=== PATIENT | female | born 1950 | race Caucasian/White ===

== ENCOUNTER → 2022-10-27 | Outpatient (CLI) | payer BC, SELFPAY ==
--- NOTE | 2022-10-27 09:41 | CT_ITS ---
EXAM: CT NECK WITH INTRAVENOUS CONTRAST CLINICAL INDICATION: L NECK MASS TECHNIQUE: Helically acquired images were obtained of the neck with intravenous contrast. This CT exam was performed using one or more of the following dose reduction techniques: automated exposure control, adjustment of the mA and/or kV according to patient size, and/or use of iterative reconstruction technique. CONTRAST: IV 75mL Isovue-370 RADIATION DOSE: CTDIvol = 19.11 mGy, DLP = 620.85 mGy-cm COMPARISON: No relevant prior studies available. FINDINGS: NASOPHARYNX: Unremarkable. SUPRAHYOID NECK: Unremarkable. Oropharynx, oral cavity, parapharyngeal space and retropharyngeal space are unremarkable. INFRAHYOID NECK: Unremarkable. The larynx, hypopharynx and supraglottis are unremarkable. SUBMANDIBULAR/PAROTID GLANDS: Unremarkable. Glands are normal in size. THYROID: Unremarkable. No enlarged or calcified nodules. SINUSES: Well-aerated almost completely included paranasal sinuses, middle ears and mastoids sinuses. Unremarkable orbits. BONES/JOINTS: Moderate degenerative change at C5-C7 with disc space narrowing and prominent predominantly anterior osteophytes. Straightening of the usual lordotic curvature. Mild spinal canal narrowing and moderate left C3-4, moderate-marked right C4-5, moderate right C5-6 and mild bilateral C6-7 neural foraminal stenosis. No acute fracture. SOFT TISSUES: Unremarkable. VASCULATURE: There are bilateral atherosclerotic calcifications of cervical carotids with estimated at least 70% stenosis of proximal right ICA, difficult to quantify due to the complex calcifications, no poststenotic dilatation. Patent vertebral arteries, both contribute to the basilar artery confluence. Mild left carotid calcification without significant narrowing. LYMPH NODES: Unremarkable. No lymphadenopathy. LUNG APICES: Unremarkable as visualized. MEDIASTINUM: Small cervical lymph nodes, no suspicious mass. Most of the mediastinum is included, small mediastinal lymph nodes, not suspicious by size criteria. CT/Soft Tissue Neck WITH Contrast IMPRESSION: 1. No suspicious mass identified. No significant salivary gland asymmetry or suspicious adenopathy. 2. Estimated at least 70% stenosis of proximal right ICA. Ultrasound could be considered to evaluate likelihood of hemodynamic significance. 3. Degenerative spine changes. Electronically Signed: Shelbi Ojeda MD at 6:07 EDT ,
[2022-10-27 10:17] LABS: CREATININE FINGERSTICK 0.9 mg/dL (0.55-1.02); EGFR FINGERSTICK > 60.0000 mL/min (>60)
== END | disposition home or self-care (01) ==
LOC: CT 09:40
PROVIDERS: Referring Provider Otolaryngology; Visit Provider Otolaryngology
DX: R22.1 Localized swelling, mass and lump, neck (principal)
CPT/HCPCS: 70491; Q9967

== ENCOUNTER → 2024-11-01 | Outpatient (CLI) | payer MEDICARE, SELFPAY ==
[2024-11-01 12:42] VITALS: PULSE 72; PULSE 84; PULSE 89; PULSE 90; PULSE 91; O2SAT 96; O2SAT 97
--- NOTE | 2024-11-02 11:38 | PCM.PSN.6M ---
PSN 6 Minute Walk Test 6 Minute Walk Test 6 Minute Walk Test: 6 Minute Walk Test PSN:6-Minute Walk Test Start: 11/01/24 12:53 Freq: Status: Active Protocol: [id number].[id number] Document 11/01/24 12:42 [facility] (Rec: 11/01/24 12:58 [facility] [id number]) 6 Minute Walk Test Date Performed 11/01/24 Time Performed 12:42 Height 5 ft 10 in Weight: 220 lb Weight in Pounds [address]: Andreas Sahu Assistive device None used: Pre-test Oxygen Delivery Room Air Method Pulse Ox (%) 97 Pulse Rate (60-100 72 beats/min) Dyspnea Laith Scale ( 0 0-10) Exertion Laith Scale 6 (6-20) 1st minute Oxygen Delivery Room Air Method Pulse Ox (%) 96 Pulse Rate (60-100 84 beats/min) 2nd minute Oxygen Delivery Room Air Method Pulse Ox (%) 96 Pulse Rate (60-100 89 beats/min) 3rd minute Oxygen Delivery Room Air Method Pulse Ox (%) 96 Pulse Rate (60-100 89 beats/min) 4th minute Oxygen Delivery Room Air Method Pulse Ox (%) 96 Pulse Rate (60-100 91 beats/min) 5th minute Oxygen Delivery Room Air Method Pulse Ox (%) 97 Pulse Rate (60-100 90 beats/min) 6th minute Oxygen Delivery Room Air Method Pulse Ox (%) 96 Pulse Rate (60-100 84 beats/min) Dyspnea Laith Scale ( 1 0-10) Exertion Laith Scale 7 (6-20) Post-test Oxygen Delivery Room Air Method Pulse Ox (%) 97 Pulse Rate (60-100 72 beats/min) Full Laps Walked 12 Partial Lap, Number 0 of Tiles Walked Total Distance 708 Walked (ft) Interpretation Interpretation: The patient ambulated 780 feet over the course of 6 minutes beginning on room air without assistive devices. Pretesting oxygen saturation was noted to be 97% on room air. With ambulation, the malcolm oxygen saturation was 96%. There was no significant exertional oxygen desaturation. Recommendations Recommendations: There is no indication for the use of supplemental oxygen at this time.
== END | disposition home or self-care (01) ==
PROVIDERS: Referring Provider Internal Medicine Critical Care Medicine; Visit Provider Internal Medicine Critical Care Medicine
DX: J98.4 Other disorders of lung (principal)
CPT/HCPCS: 94618

== ENCOUNTER → 2024-11-06 | Outpatient (CLI) | payer MEDICARE, SELFPAY | END | disposition home or self-care (01) | LOC: PSN 09:36 | PROVIDERS: Referring Provider Internal Medicine Critical Care Medicine; Visit Provider Internal Medicine Critical Care Medicine | DX: J98.4 Other disorders of lung (principal) | CPT/HCPCS: 94060; 94726; 94729 ==

== ENCOUNTER → 2024-12-18 | Outpatient (CLI) | payer MEDICARE, SELFPAY | END | disposition home or self-care (01) | LOC: SL 11:19 | PROVIDERS: Referring Provider Nurse Practitioner Family; Visit Provider Nurse Practitioner Family | DX: R06.02 Shortness of breath (principal) | CPT/HCPCS: 94762 ==

== ENCOUNTER → 2025-01-25 | Outpatient (CLI) | payer MEDICARE, SELFPAY ==
--- OUTSIDE RECORDS SUMMARY | 2025-01-25 19:51 | XMS RPT_ITS | CCD ---
Author Organization [facility] Care Team Providers Care Industrial Psychologist Name Role Phone VERONA MANZANARES, DR OLIVAREZ Primary Care Physician [phone] Unavailable Primary Care Provider HAYLIE Acevedo Attending Unavailable VERONA DO, DR OLIVAREZ Primary Care Physician VERONA DO, DR OLIVAREZ Attending Unavailable VERONA DO, DR OLIVAREZ Primary Care Unavailable VERONA DO, DR OLIVAREZ Attending Unavailable VERONA DO, DR OLIVAREZ Primary Care Unavailable VERONA DO, DR OLIVAREZ Attending Unavailable VERONA DO, DR OLIVAREZ Primary Care Unavailable VERONA DO, DR OLIVAREZ Attending Unavailable VERONA DO, DR OLIVAREZ Primary Care Unavailable VERONA DO, DR OLIVAREZ Attending Unavailable VERONA DO, DR OLIVAREZ Primary Care Unavailable JORDEN ORONA-WILI, SOPHIA Attending Unavailab le VERONA DO, DR OLIVAREZ Primary Care Unavailable BRYCE GOMEZ, RAMY Consulting Unavailable VERONA DO, DR OLIVAREZ Primary Care Unavailable RIZWAN GOMEZ, DR ZABRINA Daily Attending Lalito Tom DO, Dr. Sher Briggs Primary Care Provider Verona MANZANARES, Dr. Sher Briggs Referring Provider [phone] Luis Alberto MANZANARES, Dr. Johns Attending Provider [phone] Dr. Andreas Sahu DO Referring Provider Dr. Andreas Sahu DO Other Provider [phone] Cherelle Mendoza Attending Provider Cherelle Mendoza Referring Provider Shara GOMEZ, Hernandez Valdez Unavailable Karen Salazar Unavailable Verona DO, Sher Amaya Unavailable [phone] Verona, Sher Briggs Primary Care Unavailable Brown, Andreas Referring Unavailable Brown, Andreas Attending Unavailable Verona, Sher Briggs Primary Care Unavailable Brown, Andreas Referring Unavailable Brown, Andreas Attending Unavailable Verona, Sher Briggs Primary Care Unavailable Verona, Sher Briggs Referring Unavailable Brown, Andreas Attending Unavailable Verona, Sher Briggs Referring Unavailable Verona, Sher Briggs Primary Care Unavailable Rufener, Cherelle Amaya Attending Unavailable Verona, Sher Briggs Referring Unavailable Verona, Sher Briggs Primary Care Unavailable Rufencheo, Cherelle Amaya Attending Unavailable Brown, Andreas Consulting Unavailable Brown, Andreas Attending Unavailable Brown, Andreas Referring Unavailable Verona, Sher Briggs Primary Care Unavailable Verona, Sher Briggs Primary Care Unavailable Rufencheo, Cherelle Amaya Attending Unavailable [place]ufen[place], Cherelle mAaya Referring Unavailable Verona, Sher Briggs Primary Care Unavailable Rufener, Cherelle Amaya Attending Unavailable Rufencheo, Cherelle Amaya Referring Unavailable VERONA, SHER Primary Care Unavailable VERONA, SHER Attending Unavailable VERONA, SHER Attending Unavailable VERONA, SHER Primary Care Unavailable VERONA, SHER Attending Unavailable VERONA, SHER Primary Care Unavailable RUFENER, C++ PROFESSOR WILI PEPE Attending U navailable VERONA, SHER Primary Care Unavailable VERONA, SHER Primary Care Unavailable VERONA, SHER Attending Unavailable Medications Current Medications Medication Drug Class(es) Dates Sig (Normalized) Sig (Original) amLODIPine 5 mg oral tablet (20 sources) Dihydropyridine Calcium Channel Shruti Start: 01-17-2025 amLODIPine 5 mg oral tablet Dose : 5 mg = 1 tab(s), Oral, qDay, # 90 tab(s), 1 Refill(s), [facility] 175, cm, 01/17/25 8:40:00 EDT, Height, kg, 01/17/25 8:40:00 EDT, Dosing Weight Start Date: 01/17/25 Status: Ordered Medication Dispense Status: Completed Quantity: 90.0 Unit: tab(s) Total Allowed Fills: 2 Fills Dispensed: 0 Start: 08-09-2024 amLODIPine 5 m g oral tablet Dose : 5 mg = 1 tab(s), Oral, qDay, # 90 tab(s), 1 Refill(s), Pharmacy: [facility] 177.8, cm, 08/09/24 8:54:00 EDT, Height, kg, 08/09/24 8:54:00 EDT, Dosing Weight Start Date: 08/09/24 Status: Ordered Medication Dispense Status: Completed Quantity: 90.0 Unit: tab(s) Total Allowed Fills: 2 Fills Dispensed: 0 Start: 01-12-2024 amLODIPine 5 m g oral tablet Dose : 5 mg = 1 tab(s), Oral, qDay, # 90 tab(s), 1 Refill(s), Pharmacy: [facility] 175, cm, 01/12/24 9:56:00 EDT, Height, kg, 01/12/24 9:56:00 EDT, Dosing Weight Start Date: 01/12/24 Status: Ordered Start: 10-25-2023 amLODIPine 5 m g oral tablet Dose : 5 mg = 1 tab(s), Oral, qDay, # 90 tab(s), 1 Refill(s), Pharmacy: [facility] 175, cm, 08/09/23 8:54:00 EDT, Height, kg, 08/09/23 8:54:00 EDT, Dosing Weight Start Date: 10/25/23 Status: Ordered Start: 04-30-2021 amLODIPine 5 m g oral tablet Dose : 5 mg = 1 tab(s), Oral, qDay, # 90 tab(s), 1 Refill(s), Pharmacy: [facility] 175, cm, 02/01/23 8:59:00 EDT, Height, kg, 02/01/23 8:59:00 EDT, Dosing Weight Start Date: 06/03/23 Status: Ordered amoxicillin 875 mg / clavulanate 125 mg oral tablet (2 sources) Penicillin-class Antibacterial Start: 01-19-2022 End: 01-29-2022 take 1 tablet by mouth twice daily amoxicillin-clavulanic acid (AUGMENTIN) 875-125 mg per tablet Take 1 tablet by mouth twice daily for 10 days. 20 tablet 0 01/19/2022 01/29/2022 Active Comment on above: Take 1 tablet by skyler th twice daily for 10 days. Antiarthritic Combination No.2 (Glucosamine-Harris droitin) 900 mg tablet (6 sources) Start: 10-23-2024 Antiarthritic Combination No.2 (Glucosamine-Chondroitin) 900 mg tablet Active mg PO October 23, 2024 12:00am apixaban 5 mg oral tablet (16 sources) Factor Xa Inhibitor Start: 01-17-2025 Eliquis 5 mg oral tablet Dose : 5 mg = 1 tab(s), Oral, BID, # 180 tab(s), 1 Refill(s), Pharmacy: [facility] 175, cm, 01/17/25 8:40:00 EDT, Height, 102.3, kg, 01/17/25 8:40:00 EDT, Dosing Weight Start Date: 01/17/25 Status: Ordered Medication Dispense Status: Completed Quantity: 180.0 Unit: tab(s) Total Allowed Fills: 2 Fills Dispensed: 0 Start: 12-16-2023 Eliquis 5 mg o ral tablet Dose : 5 mg = 1 tab(s), Oral, BID, # 180 tab(s), 1 Refill(s), Pharmacy: [facility], [facility] 177.8, cm, 08/09/24 8:54:00 EDT, Height, 101.8, kg, 08/09/24 8:54:00 EDT, Dosing Weight Start Date: 08/09/24 Status: Ordered Medication Dispense Status: Completed Quantity: 180.0 Unit: tab(s) Total Allowed Fills: 2 Fills Dispensed: 0 calcium carbonate 1500 mg oral tablet (20 sources) Start: 10-23-2024 take 1 tablet by mouth twice daily Calcium Carbonate 600 mg calcium (1,500 mg) tablet Active 600 mg PO TWICE A DAY October 23, 2024 12:00am Start: 01-06-2018 calcium (as ca rbonate) 600 mg oral tablet Dose : 600 mg = 1 tab(s), Oral, BIDM, 0 Refill(s) Start Date: 01/06/18 Status: Ordered Medication Dispense Status: Completed Total Allowed Fills: 1 Fills Dispensed: 0 Chondroitin Sulfates / Glucosamine (13 sources) Start: 08-03-2022 take 1 dose by mouth once daily Glucosamine Chondroitin Oral, qDay, 0 Refill(s) Start Date: 08/03/22 Status: Ordered Medication Dispense Status: Completed Total Allowed Fills: 1 Fills Dispensed: 0 Start: 08-03-2022 Glucosamine Ch ondroitin Oral, qDay, 0 Refill(s) Start Date: 08/03/22 Status: Ordered Repeat number: 1 Start: 08-03-2022 Glucosamine Ch ondroitin Oral, qDay, 0 Refill(s) Start Date: 08/03/22 Status: Ordered Clobetasol (10 sources) Corticosteroid Start: 06-07-2023 clobetasol 0.0 5% topical cream Apply 1 guillermo, Topical, BID, # 15 gram(s), 1 Refill(s), [id number] Cream, 175, cm, 02/01/23 8:59:00 EDT, Height, 102, kg, 06/07/23 13:01:00 EST, Dosing Weight Start Date: 06/07/23 Status: Ordered Start: 08-04-2021 clobetasol 0.0 5% topical ointment Apply 1 guillermo, Topical, BID, # 15 gram(s), 0 Refill(s), [id number] Ointment, 175, cm, 08/04/21 8:59:00 EDT, Height, 99.2 Start Date: 08/04/21 Status: Ordered fexofenadine hydrochloride 180 mg oral tablet (14 sources) Histamine-1 Receptor Antagonist Start: 08-09-2024 Kandi 24 Hour Allergy oral tablet Dose : 180 mg = 1 tab(s), Oral, Daily, # 30 tab(s), 0 Refill(s), [facility] 177.8, cm, 08/09/24 8:54:00 EDT, Height, kg, 08/09/24 8:54:00 EDT, Dosing Weight Start Date: 08/09/24 Status: Ordered Medication Dispense Status: Completed Quantity: 30.0 Unit: tab(s) Total Allowed Fills: 1 Fills Dispensed: 0 Start: 12-16-2023 Kandi 24 Ramiro r Allergy oral tablet Dose : 180 mg = 1 tab(s), Oral, Daily, # 30 tab(s), 0 Refill(s), Pharmacy: [facility] #[id number], 175, cm, 12/16/23 14:02:00 EDT, Height, kg, 12/16/23 14:02:00 EDT, Dosing Weight Start Date: 12/16/23 Status: Ordered fluticasone propionate 0.05 mg/actuat metered dose nasal spray (14 sources) Corticosteroid Start: 10-23-2024 Fluticasone Pr opionate 50 mcg/actuation spray,suspension Active NMA INTRANASAL October 23, 2024 12:00am Start: 08-09-2024 take 100 ug nasal ro donna once daily in the morning Flonase 50 mcg/inh nasal spray 100 mcg Dose = 2 spray(s), Nostril, each, qAM, # 1 EA, 0 Refill(s), Pharmacy: [facility], [facility] 177.8, cm, 08/09/24 8:54:00 EDT, Height, kg, 08/09/24 8:54:00 EDT, Dosing Weight Start Date: 08/09/24 Status: Ordered Medication Dispense Status: Completed Quantity: 1.0 Unit: EA Total Allowed Fills: 1 Fills Dispensed: 0 Start: 12-16-2023 take 100 ug nasal ro donna once daily in the morning Flonase 50 mcg/inh nasal spray 100 mcg Dose = 2 spray(s), Nostril, each, qAM, # 1 EA, 0 Refill(s), Pharmacy: [facility] #[id number], 175, cm, 12/16/23 14:02:00 EDT, Height, kg, 12/16/23 14:02:00 EDT, Dosing Weight Start Date: 12/16/23 Status: Ordered hydroCHLOROthiazide 25 mg / losartan potassium 100 mg oral tablet (20 sources) Thiazide Diuretic, Angiotensin 2 Receptor Shruti Start: 01-17-2025 take 1 tablet by mouth once daily hydrochlorothiazide-losartan 25-100 mg oral tablet See Instructions, TAKE 1 TABLET EVERY DAY, # 100 tab(s), 1 Refill(s), [facility] 175, cm, 01/17/25 8:40:00 EDT, Height, kg, 01/17/25 8:40:00 EDT, Dosing Weight Start Date: 01/17/25 Status: Ordered Medication Dispense Status: Completed Quantity: 100.0 Unit: tab(s) Total Allowed Fills: 2 Fills Dispensed: 0 Start: 08-09-2024 take 1 tablet by skyler once daily hydrochlorothiazide-losartan 25-100 mg o ral tablet See Instructions, TAKE 1 TABLET EVERY DAY, # 100 tab(s), 1 Refill(s), [facility], cm, 08/09/24 8:54:00 EDT, Height, kg, 08/09/24 8:54:00 EDT, Dosing Weight Start Date: 08/09/24 Status: Ordered Medication Dispense Status: Completed Quantity: 100.0 Unit: tab(s) Total Allowed Fills: 2 Fills Dispensed: 0 Start: 01-12-2024 take 1 tablet by skyler once daily hydrochlorothiazide-losartan 25-100 mg o ral tablet See Instructions, TAKE 1 TABLET EVERY DAY, # 100 tab(s), 1 Refill(s), [facility] 175, cm, 01/12/24 9:56:00 EDT, Height, kg, 01/12/24 9:56:00 EDT, Dosing Weight Start Date: 01/12/24 Status: Ordered Start: 12-10-2021 losartan-hydro CHLOROthiazide (HYZAAR) 100-25 mg per tablet Start: 01-09-2021 take 1 tablet by skyler once daily hydrochlorothiazide-losartan 25-100 mg o ral tablet See Instructions, TAKE 1 TABLET EVERY DAY, # 100 tab(s), 1 Refill(s), [facility] 175, cm, 08/09/23 8:54:00 EDT, Height, kg, 08/09/23 8:54:00 EDT, Dosing Weight Start Date: 09/01/23 Status: Ordered ammonium lactate 120 mg/ml topical lotion (14 sources) Start: 10-23-2024 Ammonium Lacta te 12 % lotion Active TOPICAL TWICE A DAY October 23, 2024 12:00am Start: 12-19-2023 ammonium lacta te 12% topical cream Apply 1 guillermo, Topical, BID, 0 Refill(s), 104 Start Date: 12/19/23 Status: Ordered Medication Dispense Status: Completed Total Allowed Fills: 1 Fills Dispensed: 0 mupirocin 0.02 mg/mg topical ointment (5 sources) RNA Synthetase Inhibitor Antibacterial Start: 06-07-2023 mupirocin 2% topical ointment Apply 1 guillermo, Topical, TID, # 15 gram(s), 0 Refill(s), [id number] Ointment, 175, cm, 02/01/23 8:59:00 EDT, Height, 102, kg, 06/07/23 13:01:00 EST, Dosing Weight Start Date: 06/07/23 Status: Ordered 24 hr propranolol hydrochloride 60 mg extended release oral capsule (20 sources) beta-Adrenergic Shruti Start: 01-17-2025 propranolol 60 mg oral capsule, extended release Dose : 60 mg = 1 cap(s), Oral, BID, # 180 cap(s), 1 Refill(s), Pharmacy: [facility], 175, cm, 01/17/25 8:40:00 EDT, Height, kg, 01/17/25 8:40:00 EDT, Dosing Weight Start Date: 01/17/25 Status: Ordered Medication Dispense Status: Completed Quantity: 180.0 Unit: cap(s) Total Allowed Fills: 2 Fills Dispensed: 0 Start: 08-09-2024 propranolol 60 mg oral capsule, extended release Dose : 60 mg = 1 cap(s), Oral, BID, # 180 cap(s), 1 Refill(s), Pharmacy: [facility] 177.8, cm, 08/09/24 8:54:00 EDT, Height, kg, 08/09/24 8:54:00 EDT, Dosing Weight Start Date: 08/09/24 Status: Ordered Medication Dispense Status: Completed Quantity: 180.0 Unit: cap(s) Total Allowed Fills: 2 Fills Dispensed: 0 Start: 01-12-2024 propranolol 60 mg oral capsule, extended release Dose : 60 mg = 1 cap(s), Oral, BID, # 180 cap(s), 1 Refill(s), Pharmacy: [facility] 175, cm, 01/12/24 9:56:00 EDT, Height, kg, 01/12/24 9:56:00 EDT, Dosing Weight Start Date: 01/12/24 Status: Ordered Start: 08-09-2023 propranolol 60 mg oral capsule, extended release Dose : 60 mg = 1 cap(s), Oral, BID, # 180 cap(s), 1 Refill(s), Pharmacy: [facility], 175, cm, 08/09/23 8:54:00 EDT, Height, kg, 08/09/23 8:54:00 EDT, Dosing Weight Start Date: 08/09/23 Status: Ordered Start: 02-01-2023 propranolol 60 mg oral capsule, extended release Dose : 60 mg = 1 cap(s), Oral, BID, # 180 cap(s), 1 Refill(s), [facility]: [facility], 175, cm, 02/01/23 8:59:00 EDT, Height, kg, 02/01/23 8:59:00 EDT, Dosing Weight Start Date: 02/01/23 Status: Ordered Start: 10-28-2022 propranolol 60 mg oral capsule, extended release Dose : 60 mg = 1 cap(s), Oral, BID, # 180 cap(s), 1 Refill(s), [facility]: [facility], 175, cm, 02/02/22 9:07:00 EDT, Height, kg, 08/03/22 8:52:00 EDT, Dosing Weight Start Date: 10/28/22 Status: Ordered Start: 06-10-2022 propranolol 60 mg oral capsule, extended release Dose : 60 mg = 1 cap(s), Oral, BID, # 180 cap(s), 1 Refill(s), [facility]acy: [facility], 175, cm, 02/02/22 9:07:00 EDT, Height, kg, 02/02/22 9:07:00 EDT, Dosing Weight Start Date: 06/10/22 Status: Ordered Start: 12-18-2021 propranolol ER (INDERAL LA) 60 mg 24 hr capsule Start: 08-04-2021 propranolol 60 mg oral capsule, extended release Dose : 60 mg = 1 cap(s), Oral, BID, # 180 cap(s), 1 Refill(s), [facility], 175, cm, 08/04/21 8:59:00 EDT, Height, kg, 08/04/21 8:59:00 EDT, Dosing Weight Start Date: 08/04/21 Status: Ordered take 1 capsule by mo ut twice daily propranolol ER 60 mg capsule,24 hr,extended release 1 capsule by mouth twice a day active Trish Mcfadden RN [facility] simvastatin 20 mg oral tablet (20 sources) HMG-CoA Reductase Inhibitor Start: 01-17-2025 simvastatin 20 mg or al tablet Dose : 20 mg = 1 tab(s), Oral, qHS, # 90 tab(s), 1 Refill(s), Pharmacy: [facility], 175, cm, 01/17/25 8:40:00 EDT, Height, kg, 01/17/25 8:40:00 EDT, Dosing Weight Start Date: 01/17/25 Status: Ordered Medication Dispense Status: Completed Quantity: 90.0 Unit: tab(s) Total Allowed Fills: 2 Fills Dispensed: 0 Start: 02-01-2023 simvastatin 20 mg oral tablet Dose : 20 mg = 1 tab(s), Oral, qHS, # 90 tab(s), 1 Refill(s), Pharmacy: [facility] 177.8, cm, 08/09/24 8:54:00 EDT, Height, kg, 08/09/24 8:54:00 EDT, Dosing Weight Start Date: 08/09/24 Status: Ordered Medication Dispense Status: Completed Quantity: 90.0 Unit: tab(s) Total Allowed Fills: 2 Fills Dispensed: 0 Start: 12-10-2022 take 0.5 tablet by m out once daily at bedtime simvastatin 40 mg oral tablet 0.5 tab, Oral, qHS, # 45 tab(s), 1 Refill(s), Pharmacy: [facility], 175, cm, 02/02/22 9:07:00 EDT, Height, kg, 08/03/22 8:52:00 EDT, Dosing Weight Start Date: 12/10/22 Status: Ordered Start: 06-10-2022 take 0.5 tablet by m outh once daily at bedtime simvastatin 40 mg oral tablet 0.5 tab, Oral, qHS, # 45 tab(s), 1 Refill(s), Pharmacy: [facility], 175, cm, 02/02/22 9:07:00 EDT, Height, kg, 02/02/22 9:07:00 EDT, Dosing Weight Start Date: 06/10/22 Status: Ordered Start: 12-17-2021 simvastatin (Z OCOR) 40 mg tablet Start: 07-03-2021 take 0.5 tablet by m outh once daily at bedtime simvastatin 40 mg oral tablet 0.5 tab, Oral, qHS, # 45 tab(s), 1 Refill(s), Pharmacy: [facility], 175.3, cm, 06/12/20 10:50:00 EST, Height, kg, 01/09/21 15:32:00 EDT, Dosing Weight Start Date: 07/03/21 Status: Ordered Completed/Discontinued Medications Medication Drug Class(es) Dates Sig (Normalized) Sig (Original) ketoconazole 20 mg/ml topical cream (5 sources) Azole Antifungal Start: 02-01-2023 End: 02-15-2023 ketoconazole 2% topical cream Apply 1 guillermo, Topical, qDay, # 30 gram(s), 1 Refill(s), Cream, 102.9 Start Date: 02/01/23 Stop Date: 02/15/23 Status: Ordered Problems Active Problems Problem Classification Problem Date Documented Da te Episodic/Chronic Cardiac dysrhythmias (8 sources) Atrial fibrillation 12-16-2023 Chronic Chronic kidney disease (13 sources) Chronic kidney disease stage 3 08-03-2022 Chronic Diabetes mellitus without complication (16 sources) Hyperglycemia; Translations: [Hyperglycemia, unspecified] 11-08-2019 Episodic Disorders of lipid metabolism (16 sources) Hypercholesterolemi a; Translations: [Pure hypercholesterolemi a] 11-08-2019 Chronic E Codes: Natural/environment (2 sources) Dog bite - wound; Translations: [Bitten by dog, initial encounter] Onset: 01-19-2022 Episodic Essential hypertension (16 sources) Hypertensive disorder; Translations: [Essential hypertension] 11-08-2019 Chronic Other aftercare (2 sources) Encounter for other specified surgical aftercare; Translations: [Other specified aftercare following surgery] Onset: 01-22-2025 01-22-2025 Episodic Other connective tissue disease (3 sources) Ganglion of flexor tendon sheath of finger; Translations: [Ganglion, right hand] Onset: 01-01-2025 01-01-2025 Episodic Other lower respiratory disease (20 sources) Restrictive lung disease; Translations: [Other disorders of lung] 08-09-2024 Episodic Other lower respiratory disease (6 sources) Dyspnea; Translations: [Shortness of breath] 11-27-2024 Episodic Other lower respiratory disease (1 source) Shortness of breath; Translations: [Shortness of breath] Onset: 12-26-2024 Episodic Other lower respiratory disease (2 sources) Other disorders of lung; Translations: [Other disorders of lung] Onset: 11-29-2024 Episodic Other nervous system disorders (15 sources) Paresthesia of foot 01-31-2020 Episodic Other upper respiratory disease (8 sources) Nasal discharge 12-16-2023 Episodic Residual codes; unclassified (2 sources) Hypersomnia, unspecified; Translations: [Hypersomnia, unspecified] Onset: 01-08-2025 Chronic Past or Other Problems Problem Classification Problem Date Documented Da te Episodic/Chronic Other screening for suspected conditions (not mental disorders or infectious disease) (4 sources) Encounter for screening mammogram for malignant neoplasm of breast; Translations: [Encounter for screening for osteoporosis] Onset: 08-24-2024 Episodic Results Test Name Value Interpretation Reference Range Facility Relevant diagnostic tests/la boratory data Narrativeon 01-22-2025 Fall risk assessment no [employer] Work Phone: MEDS REVIEW Done [employer] Work Phone: MEDS REVIEWD Medications reviewed without changes [employer] Work Phone: .GFRon 01-17-2025 Estimated Glomerular Filtration Rate 57 ml/min/1.73sqm Normal [facility] Comment on above: Result Comment: Stages of Chronic Kidney Disease (CKD) Stage Description eGFR(ml/min/1.73 sq.m.) CKD 1 Normal kidney function or >=90 normal kindney function with possible kidney damage (ex. Proteinuria) CKD 2 Kidney damage with mild loss 60-89 of kidney function CKD 3a Mild to moderate loss of kidney 45-59 function CKD 3b Moderate to severe loss of 30-44 of kindey function CKD 4 Severe loss of kidney function 15-29 CKD 5 Kidney failure <15 Note: (go live 2024) the eGFR calculation was updated to the 2020 CKD-EPI creatinine equation without a race factor to calculate the eGFR results. Performed By: #### G , CMP #### [address] [address] CMPon 01-17-2025 Albumin Level 3.8 G/dL Normal 3.4-4.8 [facility] Comment on above: Performed By: #### Gordy WIGGINS, CMP #### [address] [address] Albumin/Globulin [Mass ratio] 0.8 {ratio} Low 1.1-2.5 [facility] Comment on above: Performed By: #### Gordy WIGGINS, CMP #### [address] [address] ALP [Catalytic activity/Vol] 95 U/L Normal 40-135 [facility] Comment on above: Performed By: #### G , CMP #### [address] [address] ALT [Catalytic activity/Vol] 28 U/L Normal 14-59 [facility] Comment on above: Performed By: #### G , CMP #### [address] [address] AST [Catalytic activity/Vol] 23 U/L Normal 10-40 [facility] Comment on above: Performed By: #### G , CMP #### [address] [address] Bili Total 0.6 mg/dL Normal 0.2-1.0 [facility] Comment on above: Result Comment: Use of this assay is not recommended for patients undergoing treatment with eltrombopag due to the potential for falsely elevated results. Performed By: #### G FR, CMP #### [address] [address] BUN/Creatinine Ratio 22 ratio Normal 7-27 [facility] Comment on above: Performed By: #### G FR, CMP #### [address] [address] Calcium [Mass/Vol] 9.9 mg/dL Normal 8.4-10.2 [facility] Comment on above: Performed By: #### G FR, CMP #### [address] [address] Chloride [Moles/Vol] 100 mmol/L Normal 98-107 [facility] Comment on above: Performed By: #### G FR, CMP #### [place] [address] CO2 [Moles/Vol] 30 mmol/L Normal 23-31 [facility] Comment on above: Performed By: #### G FR, CMP #### [address] [address] Creatinine [Mass/Vol] 1.03 mg/dL High 0.51-0.95 [facility] Comment on above: Performed By: #### G FR, CMP #### [address] [address] Electrolyte Balance 9.0 mEq/L Normal 4.0-15.0 [facility] Comment on above: Performed By: #### G FR, CMP #### [address] [address] Globulin 4.9 G/dL High 2.7-4.4 [facility] Comment on above: Performed By: #### G FR, CMP #### [address] [address] Glucose [Mass/Vol] 103 mg/dL Normal 83-110 [facility] Comment on above: Performed By: #### G FR, CMP #### [place] [id number] Potassium [Moles/Vol] 3.7 mmol/L Normal 3.5-5.1 [facility] Comment on above: Performed By: #### G , CMP #### [place] [id number] [place], [place] [address] Sodium [Moles/Vol] 139 mmol/L Normal 136-145 [facility] Comment on above: Performed By: #### G , CMP #### [address] [address] Total Protein 8.7 G/dL High 6.4-8.2 [facility] Comment on above: Performed By: #### G , CMP #### [place] [id number] [place], [place] [address] Urea nitrogen [Mass/Vol] 23 mg/dL High 7-18 [facility] Comment on above: Performed By: #### G , CMP #### [address] [address] LABORATORYOrdered By: SYSTEM SYSTEM on 01-17-2025 Albumin BCP dye [Mass/Vol] 3.8 G/dL Normal 3.4 - 4.8 G/dL AO ADM SS Albumin/Globulin [Mass ratio] 0.8 {ratio} Low 1.1 - 2.5 ratio AO ADM SS ALP [Catalytic activity/Vol] 95 U/L Normal 40 - 135 U/L AO ADM SS ALT With P-5'-P [Catalytic activity/Vol] 28 U/L Normal 14 - 59 U/L AO ADM SS AST With P-5'-P [Catalytic activity/Vol] 23 U/L Normal 10 - 40 U/L AO ADM SS Bilirubin [Mass/Vol] 0.6 mg/dL Normal 0.2 - 1 .0 mg/dL AO ADM SS Comment on above: Interpretive Data: U se of this assay is not recommended for patients undergoing treatment with eltrombopag due to the potential for falsely elevated results. Calcium [Mass/Vol] 9.9 mg/dL Normal 8.4 - 10. 2 mg/dL AO ADM SS Chloride [Moles/Vol] 100 mmol/L Normal 98 - 10 7 mmol/L AO ADM SS CO2 [Moles/Vol] 30 mmol/L Normal 23 - 31 mmol/L AO ADM SS Creatinine [Mass/Vol] 1.03 mg/dL High 0.51 - 0.95 mg/dL AO ADM SS Electrolyte Balance 9.0 mEq/L Normal 4.0 - 15 .0 mEq/L AO ADM SS Estimated Glomerular Filtration Rate 57 ml/min/1.73sqm Invalid Interpretation Code AO Chemistry S Comment on above: Interpretive Data: Stages of Chronic Kidney Disease (CKD) Stage Description eGFR(ml/min/1.73 sq.m.) CKD 1 Normal kidney function or >=90 normal kindney function with possible kidney damage (ex. Proteinuria) CKD 2 Kidney damage with mild loss 60-89 of kidney function CKD 3a Mild to moderate loss of kidney 45-59 function CKD 3b Moderate to severe loss of 30-44 of kindey function CKD 4 Severe loss of kidney function 15-29 CKD 5 Kidney failure <15 Note: (go live 2024) the eGFR calculation was updated to the 2020 CKD-EPI creatinine equation without a race factor to calculate the eGFR results. Globulin 4.9 G/dL High 2.7 - 4.4 G/dL AO ADM SS Glucose [Mass/Vol] 103 mg/dL Normal 83 - 110 mg/dL AO ADM SS Potassium [Moles/Vol] 3.7 mmol/L Normal 3.5 - 5.1 mmol/L AO ADM SS Protein [Mass/Vol] 8.7 G/dL High 6.4 - 8.2 G/dL AO ADM SS Sodium [Moles/Vol] 139 mmol/L Normal 136 - 145 mmol/L AO ADM SS Urea nitrogen [Mass/Vol] 23 mg/dL High 7 - 18 mg/dL AO ADM SS Urea nitrogen/Creatinine [Mass ratio] 22 ratio Normal 7 - 27 ratio AO ADM SS .Auto Diffon 01-10-2025 Basophil, Absolute 0.1 10 3/mcL Normal 0.0-0.3 [facility] Comment on above: Performed By: #### A DIFF, CBC, ANEU, VIDH, LIPID, A1C, TSH, GFR, CMP ####[facility] [place], [place] [address] Basophils/100 WBC (Bld) 1.2 % Normal 0.0-2.5 [facility] Comment on above: Performed By: #### A DIFF, CBC, ANEU, VIDH, LIPID, A1C, TSH, GFR, CMP ####[address] [address] Eosinophil, Absolute 0.3 10 3/mcL Normal 0.0-0.[address] [facility] Comment on above: Performed By: #### A DIFF, CBC, ANEU, VIDH, LIPID, A1C, TSH, GFR, CMP ####[address] [address] Eosinophils/100 WBC (Bld) 3.9 % Normal 0.0-6.0 [facility] Comment on above: Performed By: #### A DIFF, CBC, ANEU, VIDH, LIPID, A1C, TSH, GFR, CMP ####[address] [address] Lymphocyte, Absolute 1.7 10 3/mcL Normal 0.9-4.[address] [facility] Comment on above: Performed By: #### A DIFF, CBC, ANEU, VIDH, LIPID, A1C, TSH, GFR, CMP ####[address] [address] Lymphocytes/100 WBC (Bld) 19.6 % Low 20.0-40.0 [facility] Comment on above: Performed By: #### A DIFF, CBC, ANEU, VIDH, LIPID, A1C, TSH, GFR, CMP ####[address] [address] Monocyte, Absolute 0.9 10 3/mcL Normal 0.1-1.4 [facility] Comment on above: Performed By: #### A DIFF, CBC, ANEU, VIDH, LIPID, A1C, TSH, GFR, CMP ####[address] [address] Monocytes/100 WBC (Bld) 10.1 % Normal 2.0-13.0 [facility] Comment on above: Performed By: #### A DIFF, CBC, ANEU, VIDH, LIPID, A1C, TSH, GFR, CMP ####[address] [address] Neutrophils/100 WBC (Bld) 65.2 % Normal 50.0-75.0 [facility] Comment on above: Performed By: #### A DIFF, CBC, ANEU, VIDH, LIPID, A1C, TSH, GFR, CMP ####[facility] [place], [place] [address] .GFRon 01-10-2025 Estimated Glomerular Filtration Rate 61 ml/min/1.73sqm Normal [facility] Comment on above: Result Comment: Stages of Chronic Kidney Disease (CKD) Stage Description eGFR(ml/min/1.73 sq.m.) CKD 1 Normal kidney function or >=90 normal kindney function with possible kidney damage (ex. Proteinuria) CKD 2 Kidney damage with mild loss 60-89 of kidney function CKD 3a Mild to moderate loss of kidney 45-59 function CKD 3b Moderate to severe loss of 30-44 of kindey function CKD 4 Severe loss of kidney function 15-29 CKD 5 Kidney failure <15 Note: (go live 2024) the eGFR calculation was updated to the 2020 CKD-EPI creatinine equation without a race factor to calculate the eGFR results. Performed By: #### C KATHERINE BARRERA ANEU #### [address] [address] .NEUABSon 01-10-2025 Neutrophil, Absolute 5.5 10 3/mcL Normal 2.3-8.[address] [facility] Comment on above: Performed By: #### A DIFF, CBC, ANEU, VIDH, LIPID, A1C, TSH, GFR, CMP ####[place] [address] [place], [place] [address] A1Con 01-10-2025 Glucose [Mass/Vol] 126 mg/dL Normal [facility] Comment on above: Result Comment: Hattie mated Average Glucose calculated by equation ((28.7xA1C)-46.7) Estimated average glucose (eAG) is a calculated value from Hemoglobin A1C and is equal opportunity representative of the average blood glucose level in the last 2-3 month period. Normal range: less than 114 mg/dL Performed By: #### C BCKATHERINE, ANEU #### [address] [address] HbA1c (Bld) [Mass fraction] 6.0 % Normal 4.3-6.4 [facility] Comment on above: Performed By: #### C BC, ADIFF, ANEU #### [address] [address] CBCon 01-10-2025 Erythrocyte distribution width (RBC) [Ratio] 13.1 % Normal 11.5-15.5 [facility] Comment on above: Performed By: #### A DIFF, CBC, ANEU, VIDH, LIPID, A1C, TSH, GFR, CMP ####[place] [id number] Hematocrit (Bld) [Volume fraction] 38.6 % Normal 34.0-46.0 [facility] Comment on above: Performed By: #### A DIFF, CBC, ANEU, VIDH, LIPID, A1C, TSH, GFR, CMP ####[place] [address] Hgb 13.3 G/dL Normal 12.0-16.0 [facility] Comment on above: Performed By: #### A DIFF, CBC, ANEU, VIDH, LIPID, A1C, TSH, GFR, CMP ####[address] [address] MCH (RBC) [Entitic mass] 30.3 pg Normal 27.0-33.0 [facility] Comment on above: Performed By: #### A DIFF, CBC, ANEU, VIDH, LIPID, A1C, TSH, GFR, CMP ####[place] [address] MCHC 34.5 G/dL Normal 32.0-36.0 [facility] Comment on above: Performed By: #### A DIFF, CBC, ANEU, VIDH, LIPID, A1C, TSH, GFR, CMP ####[place] [phone] MCV (RBC) [Entitic vol] 87.7 fL Normal 80.0-99.0 [facility] Comment on above: Performed By: #### A DIFF, CBC, ANEU, VIDH, LIPID, A1C, TSH, GFR, CMP ####[address] [address] Platelet 277 10 3/mcL Normal 150-450 [facility] Comment on above: Performed By: #### A DIFF, CBC, ANEU, VIDH, LIPID, A1C, TSH, GFR, CMP ####[facility] [address] Platelet mean volume (Bld) [Entitic vol] 8.7 fL Normal 6.6-10.5 [facility] Comment on above: Performed By: #### A DIFF, CBC, ANEU, VIDH, LIPID, A1C, TSH, GFR, CMP ####[facility] [address] [address] RBC 4.40 10 6/mcL Normal 4.10-5.30 [facility] Comment on above: Performed By: #### A DIFF, CBC, ANEU, VIDH, LIPID, A1C, TSH, GFR, CMP ####[facility] [address] [address] WBC 8.5 10 3/mcL Normal 4.5-10.8 [facility] Comment on above: Performed By: #### A DIFF, CBC, ANEU, VIDH, LIPID, A1C, TSH, GFR, CMP ####[facility] [address] [address] CMPon 01-10-2025 Albumin Level 3.7 G/dL Normal 3.4-4.8 [facility] Comment on above: Performed By: #### C KATHERINE BARRERA, ANEU #### [address] [address] Albumin/Globulin [Mass ratio] 0.8 {ratio} Low 1.1-2.5 [facility] Comment on above: Performed By: #### C KATHERINE BARRERA, ANEU #### [place] [address] [place], [place] [address] ALP [Catalytic activity/Vol] 95 U/L Normal 40-135 [facility] Comment on above: Performed By: #### C KATHERINE BARRERA ANEU #### [address] [address] ALT [Catalytic activity/Vol] 25 U/L Normal 14-59 [facility] Comment on above: Performed By: #### C KATHERINE BARRERA, ANEU #### [address] [address] AST [Catalytic activity/Vol] 27 U/L Normal 10-40 [facility] Comment on above: Performed By: #### C KATHERINE BARRERA, ANEU #### [address] [address] Bili Total 0.7 mg/dL Normal 0.2-1.0 [facility] Comment on above: Result Comment: Use of this assay is not recommended for patients undergoing treatment with eltrombopag due to the potential for falsely elevated results. Performed By: #### C KATHERINE BARRERA, ANEU #### [address] [address] BUN/Creatinine Ratio 21 ratio Normal 7-27 [facility] Comment on above: Performed By: #### C KATHERINE BARRERA, ANEU #### [address] [address] Calcium [Mass/Vol] 10.1 mg/dL Normal 8.4-10.2 [facility] Comment on above: Performed By: #### C KATHERINE BARRERA, ANEU #### [address] [address] Chloride [Moles/Vol] 98 mmol/L Normal 98-107 [facility] Comment on above: Performed By: #### C KATHERINE BARRERA, ANEU #### [address] [address] CO2 [Moles/Vol] 33 mmol/L High 23-31 [facility] Comment on above: Performed By: #### C KATHERINE BARRERA, ANEU #### [address] [address] Creatinine [Mass/Vol] 0.98 mg/dL High 0.51-0.95 [facility] Comment on above: Performed By: #### C BC, ADIFF, ANEU #### [address] [address] Electrolyte Balance 5.0 mEq/L Normal 4.0-15.0 [facility] Comment on above: Performed By: #### C BC, ADIFF, ANEU #### [address] [address] Globulin 4.9 G/dL High 2.7-4.4 [facility] Comment on above: Performed By: #### C BC, ADIFF, ANEU #### [address] [address] Glucose [Mass/Vol] 102 mg/dL Normal 83-110 [facility] Comment on above: Performed By: #### C BC, ADIFF, ANEU #### [address] [address] Potassium [Moles/Vol] 3.7 mmol/L Normal 3.5-5.1 [facility] Comment on above: Performed By: #### C BC, ADIFF, ANEU #### [address] [address] Sodium [Moles/Vol] 136 mmol/L Normal 136-145 [facility] Comment on above: Performed By: #### C BC, ADIFF, ANEU #### [address] [address] Total Protein 8.6 G/dL High 6.4-8.2 [facility] Comment on above: Performed By: #### C BC, ADIFF, ANEU #### [address] [address] Urea nitrogen [Mass/Vol] 21 mg/dL High 7-18 [facility] Comment on above: Performed By: #### C BC, ADIFF, ANEU #### [address] [address] LABORATORYOrdered By: SYSTEM SYSTEM on 01-10-2025 25-hydroxyvitamin D3 [Mass/Vol] 54.2 ng/mL Invalid Interpretation Code AO ADM SS Comment on above: Interpretive Data: I nterpretive Values Based on Total 25(OH) Vitamin D: Deficient <20 ng/mL Insufficient 20 - <30 ng/mL Sufficient 30-100 ng/mL Albumin BCP dye [Mass/Vol] 3.7 G/dL Normal 3.4 - 4.8 G/dL AO ADM SS Albumin/Globulin [Mass ratio] 0.8 {ratio} Low 1.1 - 2.5 ratio AO ADM SS ALP [Catalytic activity/Vol] 95 U/L Normal 40 - 135 U/L AO ADM SS ALT With P-5'-P [Catalytic activity/Vol] 25 U/L Normal 14 - 59 U/L AO ADM SS AST With P-5'-P [Catalytic activity/Vol] 27 U/L Normal 10 - 40 U/L AO ADM SS Basophils (Bld) [#/Vol] 0.1 103/mcL Normal 0.0 - 0.3 10^3/mcL AO Workflow SS Basophils/100 WBC (Bld) 1.2 % Normal 0.0 - 2.5 % AO Workflow SS Bilirubin [Mass/Vol] 0.7 mg/dL Normal 0.2 - 1 .0 mg/dL AO ADM SS Comment on above: Interpretive Data: U se of this assay is not recommended for patients undergoing treatment with eltrombopag due to the potential for falsely elevated results. Calcium [Mass/Vol] 10.1 mg/dL Normal 8.4 - 10. 2 mg/dL AO ADM SS Chloride [Moles/Vol] 98 mmol/L Normal 98 - 10 7 mmol/L AO ADM SS CO2 [Moles/Vol] 33 mmol/L High 23 - 31 mmol/L AO ADM SS Creatinine [Mass/Vol] 0.98 mg/dL High 0.51 - 0.95 mg/dL AO ADM SS Electrolyte Balance 5.0 mEq/L Normal 4.0 - 15 .0 mEq/L AO ADM SS Eosinophil, Absolute 0.3 103/mcL Normal 0.0 - 0 .7 10^3/mcL AO Workflow SS Eosinophils/100 WBC (Bld) 3.9 % Normal 0.0 - 6.0 % AO Workflow SS Erythrocyte distribution width (RBC) [Ratio] 13.1 % Normal 11.5 - 15.5 % AO Workflow SS Estimated Glomerular Filtration Rate 61 ml/min/1.73sqm Invalid Interpretation Code AO Chemistry S Comment on above: Interpretive Data: Stages of Chronic Kidney Disease (CKD) Stage Description eGFR(ml/min/1.73 sq.m.) CKD 1 Normal kidney function or >=90 normal kindney function with possible kidney damage (ex. Proteinuria) CKD 2 Kidney damage with mild loss 60-89 of kidney function CKD 3a Mild to moderate loss of kidney 45-59 function CKD 3b Moderate to severe loss of 30-44 of kindey function CKD 4 Severe loss of kidney function 15-29 CKD 5 Kidney failure <15 Note: (go live 2024) the eGFR calculation was updated to the 2020 CKD-EPI creatinine equation without a race factor to calculate the eGFR results. Globulin 4.9 G/dL High 2.7 - 4.4 G/dL AO ADM SS Glucose [Mass/Vol] 102 mg/dL Normal 83 - 110 mg/dL AO ADM SS Glucose [Mass/Vol] 126 mg/dL Invalid Interpretation Code AO Chemistry S Comment on above: Interpretive Data: E stimated average glucose (eAG) is a calculated value from Hemoglobin A1C and is equal opportunity representative of the average blood glucose level in the last 2-3 month period. Normal range: less than 114 mg/dL HbA1c (Bld) [Mass fraction] 6.0 % Normal 4.3 - 6.4 % AO ADM SS Hematocrit (Bld) [Volume fraction] 38.6 % Normal 34.0 - 46.0 % AO Workflow SS Hemoglobin (Bld) [Mass/Vol] 13.3 G/dL Normal 12.0 - 16.0 G/dL AO Workflow SS Lymphocytes (Bld) [#/Vol] 1.7 103/mcL Normal 0.9 - 4.3 10^3/mcL AO Workflow SS Lymphocytes/100 WBC (Bld) 19.6 % Low 20.0 - 40.0 % AO Workflow SS MCH (RBC) [Entitic mass] 30.3 pg Normal 27.0 - 33.0 pg AO Workflow SS MCHC 34.5 G/dL Normal 32.0 - 36.0 G/dL AO Workflow SS MCV (RBC) [Entitic vol] 87.7 fL Normal 80.0 - 99.0 fL AO Workflow SS Monocytes (Bld) [#/Vol] 0.9 103/mcL Normal 0.1 - 1.4 10^3/mcL AO Workflow SS Monocytes/100 WBC (Bld) 10.1 % Normal 2.0 - 13.0 % AO Workflow SS Neutrophils (Bld) [#/Vol] 5.5 103/mcL Normal 2.3 - 8.1 10^3/mcL AO Workflow SS Neutrophils/100 WBC (Bld) 65.2 % Normal 50.0 - 75.0 % AO Workflow SS Platelet mean volume (Bld) [Entitic vol] 8.7 fL Normal 6.6 - 10.5 fL AO Workflow SS Platelets (Bld) [#/Vol] 277 103/mcL Normal 150 - 450 10^3/mcL AO Workflow SS Potassium [Moles/Vol] 3.7 mmol/L Normal 3.5 - 5.1 mmol/L AO ADM SS Protein [Mass/Vol] 8.6 G/dL High 6.4 - 8.2 G/dL AO ADM SS RBC (Bld) [#/Vol] 4.40 106/mcL Normal 4.10 - 5.3 0 10^6/mcL AO Workflow SS Sodium [Moles/Vol] 136 mmol/L Normal 136 - 145 mmol/L AO ADM SS TSH Qn 2.71 m[IU]/L Normal 0.36 - 3.74 mcIU/mL AO ADM SS Urea nitrogen [Mass/Vol] 21 mg/dL High 7 - 18 mg/dL AO ADM SS Urea nitrogen/Creatinine [Mass ratio] 21 ratio Normal 7 - 27 ratio AO ADM SS WBC (Bld) [#/Vol] 8.5 103/mcL Normal 4.5 - 10.8 10^3/mcL AO Workflow SS LABORATORYOrdered By: Sheryl Samuel on 01-10-2025 Cholesterol [Mass/Vol] 151 mg/dL Normal 0 - 200 mg/dL AO ADM SS Comment on above: Interpretive Data: C holesterol Reference Interval: Less than 200 Desirable 200-239 Borderline high risk 240 and above High risk Cholesterol in HDL [Mass/Vol] 45 mg/dL Normal 40 - 60 mg/dL AO ADM SS Cholesterol in LDL [Mass/Vol] 85 mg/dL Normal 0 - 130 mg/dL AO ADM SS Triglyceride [Mass/Vol] 106 mg/dL Normal 0 - 150 mg/dL AO ADM SS Comment on above: Interpretive Data: T riglyceride Reference Interval: Less than 150 Normal 150-199 Borderline high risk 200-499 High risk 500 or higher Very high risk LIPIDon 01-10-2025 Cholesterol [Mass/Vol] 151 mg/dL Normal 0-200 [facility] Comment on above: Result Comment: Chol esterol Reference Interval: Less than 200 Desirable 200-239 Borderline high risk 240 and above High risk Performed By: #### C BC, KATHERINE, ANEU #### [address] [address] Cholesterol in HDL [Mass/Vol] 45 mg/dL Normal 40-60 [facility] Comment on above: Performed By: #### C BC, KATHERINE, ANEU #### [address] [address] Cholesterol in LDL [Mass/Vol] 85 mg/dL Normal 0-130 [facility] Comment on above: Performed By: #### C BC, KATHERINE, ANEU #### [address] [address] Triglyceride [Mass/Vol] 106 mg/dL Normal 0-150 [facility] Comment on above: Result Comment: Trig lyceride Reference Interval: Less than 150 Normal 150-199 Borderline high risk 200-499 High risk 500 or higher Very high risk Performed By: #### C BCKATHERINE, ANEU #### [address] [address] TSHon 01-10-2025 TSH Qn 2.71 m[IU]/L Normal 0.36-3.74 [facility] Comment on above: Performed By: #### A DIFF, CBC, ANEU, VIDH, LIPID, A1C, TSH, GFR, CMP ####[address] [address] VIDHon 01-10-2025 Vit. D 25-Hydroxy 54.2 ng/mL Normal [facility] Comment on above: Result Comment: Inte rpretive Values Based on Total 25(OH) Vitamin D: Deficient <20 ng/mL Insufficient 20 - <30 ng/mL Sufficient 30-100 ng/mL Performed By: #### C BC, KATHERINE, ANEU #### [address] [address] Pulmonary Visit Reporton Pulmonary Visit Report [facility] [address] [place] [address] OFFICE VISIT Date of Service: 01/08/25 MR#: [id number] Acct: [id number] Name: LASHANDA FREEMAN Rep #: [id number] : 1950 Provider: Cherelle Warner NP Age/Sex: 74/F Location[place] [facility] [place] Status: Signed Assessment and Plan Assessment and Plan (1) Daytime hypersomnia: Status: Acute Comment: STOP BANG =4 Plan: The differential diagnosis for daytime hypersomnia includes sleep disordered breathing such as CSA, TANA, PLMD. In the presence of nocturnal hypoxemia, snoring, neck circumference, I favor obstructive sleep apnea. I have recommended further sleep testing by polysomnography and the patient has agreed to this. She is concerned about being able to fall asleep in the sleep lab so a sleep aid, Sonata 5 mg should be available for her if she is unable to sleep during the study. The it technician should perform a mini neuroevaluation prior to releasing the patient in the morning if she needs to utilize the sleep aid. The patient does travel to [place] next month until July. If her study shows that she has sleep apnea then it will be recommended that her provider set her up with therapy in [place] so that she can be followed in a 31 to 90-day window of time after set up. (2) Shortness of breath: Status: Acute Plan: Differential diagnosis for the mild reduction in diffusion capacity includes mucous plugging, pulmonary hypertension secondary to sleep apnea. I currently favor sleep disordered breathing as the recent nocturnal oximetry shows an abnormal nocturnal oxygenation status. Hemoglobin on CBC did not significantly correct for anemia. Upon further questioning from last evaluation there is some present with heavier exertion. I have discussed at length the correlation between the reduced gas transfer abnormality and sleep disordered breathing. I have also discussed the risk for A-fib and stroke with sleep disordered breathing once again today. (3) Restrictive airway disease: Status: Ruled-out (4) Nocturnal hypoxemia: Status: Acute Plan: Seen on most recent nocturnal oximetry with 32 minutes below 88%. I have recommended further testing to determine the etiology of this abnormal oxygenation. Patient is agreeable to a sleep study. Orders: Orders Polysomnography Today G47.10 - Hypersomnia, unspecified Plan Details Follow Up: August 2025 (LMR) HPI HPI Comments Details: The patient is a 74-year-old female who presents to the office today to discuss recent testing. She is ambulatory currently on room air. She has not had recent ER visit or urgent care visit for her breathing. She has not required the use of oral prednisone or antibiotics for respiratory illness. She did have a cyst removed to right index finger yesterday. The patient completed pulmonary function studies in December 2023 through [facility]. Although the raw data was never forwarded to our office for review, the PFT dictation indicated the presence of a moderate restrictive ventilatory defect with normal diffusing capacity. When questioned specifically, the patient was unable to tell me why the pulmonary function studies were actually obtained in the first place. The patient is a lifelong non-smoker, but did grow up in a smoking household. 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 Today she denies shortness of breath, cough, wheeze. She denies chest pain and chest tightness. She denies wheeze. She reports that she had an echocardiogram completed last fall due to atrial fibrillation that was discovered by her PCP. She did undergo cardioversion and has not had return of A-fib. She awakens after 3 hours of sleep to urinate and will sometimes read to get back to sleep. Her has left the bedroom because of her snoring. She does not believe that she has history of anemia. She fall asleep if she sits down to read in the afternoon. She has never been diagnosed with any autoimmune conditions. She indicated that she spends her winter months in [place]. Her weight and appetite have been stable. She denies fevers, chills or night sweats. 6-minute walk test from November 01, 2024 shows no significant exertional oxygen desaturation. No indication for the use of supplemental oxygen at this time. PFT from November 06, 2024 shows isolated mild reduction in diffusion capacity. Otherwise normal pulmonary function study. Documentation reviewed with patient today includes: Unattended nocturnal oximetry report from December 18, 2024 shows average saturation of 91% with 32 minutes below 88%. The most recent CBC collected on December 19, 2024 shows a hemoglobin of 13.1 which corrects the DLCO to 72.67% predicted. There is still a mild gas transfer abnormality present. STOP-BANG Assessment: 1 (more content not included)... Normal [facility] Relevant diagnostic tests/la boratory data Narrativeon 01-01-2025 Fall risk assessment no [employer] Work Phone: MEDS REVIEW Documentation of current medications (procedure) [employer] Work Phone: MEDS REVIEWD Medications reviewed with changes [employer] Work Phone: .Auto Diffon 12-19-2024 Basophil, Absolute 0.1 10 3/mcL Normal 0.0-0.3 [facility] Comment on above: Performed By: #### C KATHERINE BARRERA ANEU #### [address] [address] Lymphocyte, Absolute 1.4 10 3/mcL Normal 0.9-4.[address] [facility] Comment on above: Performed By: #### KATHERINE MANNING, ANEU #### [address] [address] Monocyte, Absolute 0.7 10 3/mcL Normal 0.1-1.4 [facility] Comment on above: Performed By: #### KATHERINE MANNING, ANEU #### [address] [address] .Auto DiffOrdered By: SYSTEM SYSTEM on 12-19-2024 Basophils/100 WBC (Bld) 1.7 % Normal 0.0-2.5 AO Workflow SS Comment on above: Performed By: #### C KATHERINE BARRERA, ANEU #### [address] [address] Eosinophil, Absolute 0.3 103/mcL Normal 0.0-0.7 AO Workflow SS Comment on above: Performed By: #### KATHERINE MANNING, ANEU #### [address] [address] Eosinophils/100 WBC (Bld) 4.6 % Normal 0.0-6.0 AO Workflow SS Comment on above: Performed By: #### C KATHERINE BARRERA, ANEU #### [address] [address] Lymphocytes/100 WBC (Bld) 21.5 % Normal 20.0-40.0 AO Workflow SS Comment on above: Performed By: #### KATHERINE MANNING, ANEU #### [address] [address] Monocytes/100 WBC (Bld) 10.8 % Normal 2.0-13.0 AO Workflow SS Comment on above: Performed By: #### C KATHERINE BARRERA, ANEU #### [address] [address] Neutrophils/100 WBC (Bld) 61.4 % Normal 50.0-75.0 AO Workflow SS Comment on above: Performed By: #### KATHERINE MANNING, ANEU #### [address] [address] .NEUABSon 12-19-2024 Neutrophil, Absolute 4.0 10 3/mcL Normal 2.3-8.[address] [facility] Comment on above: Performed By: #### C KATHERINE BARRERA, ANEU #### [address] [address] CBCOrdered By: SYSTEM SYSTEM on 12-19-2024 Erythrocyte distribution width (RBC) [Ratio] 13.2 % Normal 11.5-15.5 AO Workflow SS Comment on above: Performed By: #### KATHERINE MANNING, ANEU #### [address] [address] Hematocrit (Bld) [Volume fraction] 38.5 % Normal 34.0-46.0 AO Workflow SS Comment on above: Performed By: #### KATHERINE MANNING, ANEU #### [address] [address] MCH (RBC) [Entitic mass] 29.9 pg Normal 27.0-33.0 AO Workflow SS Comment on above: Performed By: #### KATHERINE MANNING, ANEU #### [address] [address] MCHC 34.0 G/dL Normal 32.0-36.0 AO Workflow SS Comment on above: Performed By: #### C KATHERINE BARRERA, ANEU #### [place] [id number] MCV (RBC) [Entitic vol] 87.9 fL Normal 80.0-99.0 AO Workflow SS Comment on above: Performed By: #### KATHERINE MANNING, ANEU #### [place] [address] Platelet mean volume (Bld) [Entitic vol] 9.0 fL Normal 6.6-10.5 AO Workflow SS Comment on above: Performed By: #### C KATHERINE BARRERA, ANEU #### [place] [id number] CBCon 12-19-2024 Hgb 13.1 G/dL Normal 12.0-16.0 [facility] Comment on above: Performed By: #### KATHERINE MANNING, ANEU #### [place] [id number] Platelet 271 10 3/mcL Normal 150-450 [facility] Comment on above: Performed By: #### KATHERINE MANNING, ANEU #### [place] [id number] RBC 4.38 10 6/mcL Normal 4.10-5.30 [facility] Comment on above: Performed By: #### KATHERINE MANNING, ANEU #### [place] [id number] WBC 6.5 10 3/mcL Normal 4.5-10.8 [facility] Comment on above: Performed By: #### KATHERINE MANNING, ANEU #### [place] [address] LABORATORYOrdered By: SYSTEM SYSTEM on 12-19-2024 Basophils (Bld) [#/Vol] 0.1 103/mcL Normal 0.0 - 0.3 10^3/mcL AO Workflow SS Hemoglobin (Bld) [Mass/Vol] 13.1 G/dL Normal 12.0 - 16.0 G/dL AO Workflow SS Lymphocytes (Bld) [#/Vol] 1.4 103/mcL Normal 0.9 - 4.3 10^3/mcL AO Workflow SS Monocytes (Bld) [#/Vol] 0.7 103/mcL Normal 0.1 - 1.4 10^3/mcL AO Workflow SS Neutrophils (Bld) [#/Vol] 4.0 103/mcL Normal 2.3 - 8.1 10^3/mcL AO Workflow SS Platelets (Bld) [#/Vol] 271 103/mcL Normal 150 - 450 10^3/mcL AO Workflow SS RBC (Bld) [#/Vol] 4.38 106/mcL Normal 4.10 - 5.3 0 10^6/mcL AO Workflow SS WBC (Bld) [#/Vol] 6.5 103/mcL Normal 4.5 - 10.8 10^3/mcL AO Workflow SS Pulmonary Visit Reporton Pulmonary Visit Report [facility] [place] [address] [place] [address] OFFICE VISIT Date of Service: 11/27/24 MR#: [id number] Acct: [id number] Name: LASHANDA FREEMAN Rep #: [id number] : 1950 Provider: Cherelle Warner NP Age/Sex: 74/F Location: [facility] [place] Status: Signed Assessment and Plan Assessment and Plan (1) Shortness of breath: Status: Acute Plan: Differential diagnosis for the mild reduction in diffusion capacity includes anemia, mucous plugging, pulmonary hypertension secondary to sleep apnea. Obtain a CBC to correct for anemia if present. Obtain results of recent echocardiogram to look for elevated PA pressure. Obtain a nocturnal oximetry on room air to look for evidence of nocturnal hypoxemia and/or clusters of desaturations present on the study which could suggest sleep disordered breathing. The patient has a normal lung exam today. The patient did not initially presented with shortness of breath. Upon further questioning there is some present with heavier exertion. I have discussed at length the correlation between the reduced gas transfer abnormality and sleep disordered breathing. I have also discussed the risk for A-fib and stroke with sleep disordered breathing. (2) Restrictive airway disease: Status: Acute Plan: The most recent PFT completed on November 07, 2024 does not show evidence of restrictive lung disease. There is an isolated mild reduction in diffusion capacity. At this point I have recommended further testing to determine if her hemoglobin will correct the DLCO, I will consider CT imaging if there gas transfer abnormality is unexplained. Orders: Orders CBC W/Diff, Automated Today R06.02 - Shortness of breath OutPt Pulse Ox/Cont Overnight Today R06.02 - Shortness of breath Plan Details Follow Up: 4-6 weeks (LMR) HPI HPI Comments Details: The patient is a 74-year-old female who presents to the office today to discuss recent testing. She is ambulatory currently on room air. She has not had recent ER visit or urgent care visit for her breathing. She has not required the use of oral prednisone or antibiotics for respiratory illness. The patient completed pulmonary function studies in December 2023 through [facility]. Although the raw data was never forwarded to our office for review, the PFT dictation indicated the presence of a moderate restrictive ventilatory defect with normal diffusing capacity. When questioned specifically, the patient was unable to tell me why the pulmonary function studies were actually obtained in the first place. The patient is a lifelong non-smoker, but did grow up in a smoking household. 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 Today she reports that shortness of breath would occur with walking a far distance or at a fast pace. She is able to bike without shortness of breath. She does cough on occasion, she gets a lot of drainage ". She denies wheeze. She denies chest pain and chest tightness. She reports that she had an echocardiogram completed last fall due to atrial fibrillation that was discovered by her PCP. She did undergo cardioversion and has not had return of A-fib. She awakens after 3 hours of sleep to urinate and will sometimes read to get back to sleep. Her has left the bedroom because of her snoring. She does not believe that she has history of anemia. She fall asleep if she sits down to read in the afternoon. She has never been diagnosed with any autoimmune conditions. She indicated that she spends her winter months in [place]. Her weight and appetite have been stable. She denies fevers, chills or night sweats. Documentation reviewed with patient today includes: 6-minute walk test from November 01, 2024 shows no significant exertional oxygen desaturation. No indication for the use of supplemental oxygen at this time. PFT from November 06, 2024 shows isolated mild reduction in diffusion capacity. Otherwise normal pulmonary function study. Intake Vital Signs 10/23/24 10:03 11/27/24 08:06 Height 5 ft 10 in 5 ft 10 in Weight: 226 lb BMI 32.4 BP 146/73 H Blood Pressure Location Lt brachial Position Sitting Respiration 18 Pulse 64 Pulse Source Monitor Temp 97.1 F L Temperature Source Temporal Artery Pulse Oximetry (%) 93 Oxygen Delivery Method room air Intake Visit Reasons: 6 wk FU Post Closer Required: No DME Vendor: n/a Accompanied by: Self Is patient in pain?: No Allergies No Known Allergies Allergy (Unverified 11/27/24 10:45) Medications ???Medication ???Instructions ???Recorded ???Confirmed ???Type amlodipine 5 mg tablet 5 mg PO QDAY 10/23/24 11/27/24 His tory ammonium lactate 12 % lotion topical BID 10/23/24 11/27/24 Hist ory antiarth (more content not included)... Normal [facility] 6 Minute Walk Teston 025 6 Minute Walk Test y [facility] Pulmonary Services/Neurology [address] [place] [address] MR#: [id number] Acct: [id number] Name: LASHANDA FREEMAN Rep #: [id number] : 1950 74 From: Andreas Sahu DO Referring Dr: Andreas Sahu DO Status: REG CLI Location: PSN Date: Sex: F C PSN 6 Minute Walk Test 6 Minute Walk Test 6 Minute Walk Test: 6 Minute Walk Test PSN:6-Minute Walk Test Start: 11/01/24 12:53 Freq: Status: Active Protocol: [id number].[id number] Document 11/01/24 12:42 WLB (Rec: 11/01/24 12:58 WLB [id number]) 6 Minute Walk Test Date Performed 11/01/24 Time Performed 12:42 Height 5 ft 10 in Weight: 220 lb Weight in Pounds 220.[address]: Andreas Sahu Assistive device None used: Pre-test Oxygen Delivery Room Air Method Pulse Ox (%) 97 Pulse Rate (60-100 72 beats/min) Dyspnea Laith Scale ( 0 0-10) Exertion Laith Scale 6 (6-20) 1st minute Oxygen Delivery Room Air Method Pulse Ox (%) 96 Pulse Rate (60-100 84 beats/min) 2nd minute Oxygen Delivery Room Air Method Pulse Ox (%) 96 Pulse Rate (60-100 89 beats/min) 3rd minute Oxygen Delivery Room Air Method Pulse Ox (%) 96 Pulse Rate (60-100 89 beats/min) 4th minute Oxygen Delivery Room Air Method Pulse Ox (%) 96 Pulse Rate (60-100 91 beats/min) 5th minute Oxygen Delivery Room Air Method Pulse Ox (%) 97 Pulse Rate (60-100 90 beats/min) 6th minute Oxygen Delivery Room Air Method Pulse Ox (%) 96 Pulse Rate (60-100 84 beats/min) Dyspnea Laith Scale ( 1 0-10) Exertion Laith Scale 7 (6-20) Post-test Oxygen Delivery Room Air Method Pulse Ox (%) 97 Pulse Rate (60-100 72 beats/min) Full Laps Walked 12 Partial Lap, Number 0 of Tiles Walked Total Distance 708 Walked (ft) Interpretation Interpretation: The patient ambulated 780 feet over the course of 6 minutes beginning on room air without assistive devices. Pretesting oxygen saturation was noted to be 97% on room air. With ambulation, the malcolm oxygen saturation was 96%. There was no significant exertional oxygen desaturation. Recommendations Recommendations: There is no indication for the use of supplemental oxygen at this time. 11/02/24 1139 Date Andreas Sahu DO CC: Date Dictated: 11/02/248 Date Transcribed: 11/02/241137 Secondary Art Teacher: Dr. Andreas Sahu DO Signed Normal [facility] Pulmonary Visit Reporton Pulmonary Visit Report [facility] Pulmonary Medicine of [address] [place] [address] OFFICE VISIT Date of Service: 10/23/24 MR#: [id number] Acct: [id number] Name: LASHANDA FREEMAN Rep #: [id number] : 1950 Provider: Dr. Andreas Sahu DO Age/Sex: 74/F Location: [facility] [place] Status: Signed Assessment and Plan Assessment and Plan (1) Restrictive airway disease: Status: Acute Plan: The patient had pulmonary function studies completed in December 2023 for unclear reasons. Although I am not able to review the raw data from the PFTs, the dictation report indicated the presence of a moderate restrictive ventilatory impairment with normal diffusing capacity. The patient has not had any recent chest imaging completed. I do suspect that the restrictive lung mechanics may be secondary to obesity, given her normal diffusing capacity. Given that it has been approximately 10 months since her last pulmonary function studies, we will plan to obtain follow-up PFTs and will obtain a 6-minute walk test to assess for any exertional hypoxemia. If the patient continues to demonstrate evidence of a restrictive impairment with normal diffusing capacity, no additional workup would be indicated. However, if there is evidence of a reduction in DLCO, I would consider dedicated chest imaging for the evaluation of possible interstitial lung disease. Orders: Orders Simple Pulmonary Exercise Test 11/01/24 J98.4 - Other disorders of lung PFT Complete - DLCO, Spirometry b/a bronchodilators, lung volumes 11/06/24 J98.4 - Other disorders of lung HPI HPI Comments Details: The patient is a 74-year-old female who presents to the clinic today in referral for the evaluation of restrictive lung mechanics. The patient completed pulmonary function studies in December 2023 through [facility]. Although the raw data was never forwarded to our office for review, the PFT dictation indicated the presence of a moderate restrictive ventilatory defect with normal diffusing capacity. When questioned specifically, the patient was unable to tell me why the pulmonary function studies were actually obtained in the first place. The patient is a lifelong non-smoker, but did grow up in a smoking household. 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 She currently denies any shortness of breath, chest tightness, wheezing or cough. She has never been diagnosed with any autoimmune conditions. She indicated that she spends her winter months in [place]. Her weight and appetite have been stable. She denies fevers, chills or night sweats. Intake Vital Signs 10/23/24 10:03 Height 5 ft 10 in Weight: 226 lb BMI 32.4 BP 158/80 H Blood Pressure Location Lt brachial Position Sitting Respiration 18 Pulse 54 L Pulse Source Monitor Temp 97.6 F L Temperature Source Temporal Artery Pulse Oximetry (%) 97 Oxygen Delivery Method room air Intake Visit Reasons: est care Post Closer Required: No Accompanied by: Self Allergies No Known Allergies Allergy (Unverified 10/23/24 10:05) Medications ???Medication ???Instructions ???Recorded ???Confirmed ???Type amlodipine 5 mg tablet 5 mg PO QDAY 10/23/24 10/23/24 His tory ammonium lactate 12 % lotion topical BID 10/23/24 10/23/24 Hist ory antiarthritic combination no.2 900 mg PO 10/23/24 10/23/24 History mg tablet (glucosamine-chondroit in) apixaban 5 mg tablet (Eliquis) 5 mg PO BID 10/23/24 10/23/24 Hist ory calcium carbonate 600 mg PO BID 10/23/24 10/23/24 Hi story fexofenadine 180 mg tablet 180 mg PO QDAY PRN 10/23/24 History (Kandi Allergy) fluticasone propionate 50 spray intranasal 10/23/24 10/23/24 History mcg/actuation nasal spray,suspension losartan 100 1 tab PO QDAY 10/23/24 10/23/24 Hi story mg-hydrochlorothiazide 25 mg tablet propranolol 60 mg capsule,24 mg PO 10/23/24 10/23/24 History hr,extended release simvastatin 20 mg tablet 20 mg PO QHS 10/23/24 10/23/24 His tory Have you fallen in the past year?: No PFSH Family History (Updated 10/23/24 @ 10:10 by Carmen Krueger LPN) Father Diabetes Mother Heart disease Social History (Updated 10/23/24 @ 10:10 by Carmen Krueger LPN) pets and animals: No history of recent travel: No Smoking Status: Never smoker alcohol intake: current substance use type: does not use seatbelt use: always do you feel safe at home: Yes Review of Systems Resp Respiratory: Yes as per HPI Exam Const Constitutional: Positive conversant, cooperative, in no acute respiratory distress, well developed, well nourished, good hygiene and obese Head Head: Yes normocephalic and Yes atraumatic Eyes Eye: Positive clear conjunctiva; Ne (more content not included)... Normal [facility] MAMMOGRAM SCREENING BILAT BRITTNEYL W/TOMOon 08-29-2024 MA MAMMOGRAM SCREENING BILATERAL W/RAMAKRISHNA ORIGINAL FROM: [id number] [address] PROCEDURE FOR: LASHANDA Rivera PETE [address] [place] [address] Home: PID#: [id number] Exam#: [id number] : 1950 Age: 74 TO: SHER TOM [address] [address] Fax: NO FAX EXAMINATION: SCREENING DIGITAL BILATERAL MAMMOGRAM WITH TOMOSYNTHESIS, 08/24/2024 10:45 am TECHNIQUE: Screening mammography of the bilateral breasts was performed with tomosynthesis. 2D standard and 3D tomosynthesis combination imaging performed through both breasts in the MLO and CC projection. Computer aided detection was utilized in the interpretation of this exam. COMPARISON: 08/22/2023, 08/09/2022, 01/30/2021 HISTORY: Breast cancer screening. FINDINGS: BREAST DENSITY: The breasts are almost entirely fatty. There are no significant masses or calcifications. IMPRESSION: No mammographic evidence of malignancy. Continued screening with annual mammograms is recommended. Susan Diaz risk calculations, generated with the history provided, report this patient's 10 year risk and lifetime risk for developing breast cancer at 5.4% and 6.0%, respectively. Based on this assessment tool, if the patient's calculated lifetime risk is below 20%, then the patient is considered at average risk for developing breast cancer. If the patient's calculated lifetime risk is at or above 20%, then the patient is considered high risk for developing breast cancer and may be a candidate for supplemental breast MRI screening in addition to annual mammographic screening per the [employer]. BIRADS: BI-RADS: 1: Negative RECALL: 1 year screening RECALL TYPE: mammo LETTER SENT: Normal BI-RADS 1 and 2 Interpreted by: Jim Mendoza MD Preliminary Report By: Jim Mendoza MD Electronically signed By Jim Mendoza MD Dictated Date: 08/29/2024 7:07:43 AM Prelim Date: 08/29/2024 7:10:31 AM Sign Date: 08/29/2024 7:10:31 AM Ordering Provider: SHER TMO Radiology Technologist: SHYANN MONZON RT (R)(M) letter sent: Normal BI-RADS 1 and 2 Mammogram BI-RADS: 1 Negative Normal [facility] BD BONE DENSITY DEXA AXIAL S [facility] 08-24-2024 BD BONE DENSITY DEXA AXIAL [facility] ORIGINAL EXAMINATION: BONE DENSITOMETRY 08/24/2024 11:22 am TECHNIQUE: A bone density dual x-ray absorptiometry (DEXA) scan was performed of the axial (e.g. hips, spine) and/or appendicular (e.g. radius) skeleton as appropriate. COMPARISON: 08/09/2022 HISTORY: ORDERING SYSTEM PROVIDED HISTORY: Reason for Exam: screening FINDINGS: T Score Left Femoral Neck: -0.2 Left Femoral Neck: 0.823 (g/cm2) T Score Left Hip: 1.1 Left Hip: 1.072 (g/cm2) T Score Lumbar Spine: 3.8 Lumbar Spine: 1.470 (g/cmd2) BMD Change from previous Hip:-0.054, -4.8% BMD Change from previous Lumbar Spine: 0.080, 5.8% IMPRESSION: Normal bone mineral density by WHO criteria. World Health Organization criteria: (Comparing with young normal sex matched population) - Normal: T-score at or above -1 SD (standard deviation) - Osteopenia: T-score between -1 and -2.5 SD - Osteoporosis: T-score at or below -2.5 SD The NOF recommends that FDA-approved medical therapies be considered in post-menopausal women and men age >/= 50 years with a: * Hip or vertebral fracture, or * T-score of /= 20% for major osteoporotic fractures or * >/= 3% for hip fractures All treatment decisions require clinical judgement and consideration of individual patient factors, including patient preferences, comorbidities, previous drug use, risk factors not captured in the FRAX registered model (e.g., frailty, falls, vitamin D deficiency, increased bone turnover, interval significant decline in bone density) and possible under- or over-estimation of fracture risk by FRAX. Interpreted by: Maral Elmore DO Preliminary Report By: Maral Elmore DO Electronically signed By Maral Elmore DO Dictated Date: 08/24/2024 11:26:14 AM Prelim Date: 08/24/2024 11:27:13 AM Sign Date: 08/24/2024 11:27:13 AM Ordering Provider: SHER Albert [facility] .Auto Diffon 07-31-2024 Basophil, Absolute 0.1 10 3/mcL Normal 0.0-0.3 [facility] Comment on above: Performed By: #### A 1C, ANEU, TSH, ADIFF, GFR, CBC, LIPID, VIDH, CMP #### [address] [address] Basophils/100 WBC (Bld) 1.6 % Normal 0.0-2.5 [facility] Comment on above: Performed By: #### A 1C, ANEU, TSH, ADIFF, GFR, CBC, LIPID, VIDH, CMP #### [address] [address] Eosinophil, Absolute 0.3 10 3/mcL Normal 0.0-0.[address] [facility] Comment on above: Performed By: #### A 1C, ANEU, TSH, ADIFF, GFR, CBC, LIPID, VIDH, CMP #### [address] [address] Eosinophils/100 WBC (Bld) 4.0 % Normal 0.0-6.0 [facility] Comment on above: Performed By: #### A 1C, ANEU, TSH, ADIFF, GFR, CBC, LIPID, VIDH, CMP #### [address] [address] Lymphocyte, Absolute 1.6 10 3/mcL Normal 0.9-4.[address] [facility] Comment on above: Performed By: #### A 1C, ANEU, TSH, ADIFF, GFR, CBC, LIPID, VIDH, CMP #### [address] [place] [address] Lymphocytes/100 WBC (Bld) 21.9 % Normal 20.0-40.0 [facility] Comment on above: Performed By: #### A 1C, ANEU, TSH, ADIFF, GFR, CBC, LIPID, VIDH, CMP #### [address] [address] Monocyte, Absolute 0.8 10 3/mcL Normal 0.1-1.4 [facility] Comment on above: Performed By: #### A 1C, ANEU, TSH, ADIFF, GFR, CBC, LIPID, VIDH, CMP #### [address] [address] Monocytes/100 WBC (Bld) 10.9 % Normal 2.0-13.0 [facility] Comment on above: Performed By: #### A 1C, ANEU, TSH, ADIFF, GFR, CBC, LIPID, VIDH, CMP #### [address] [address] Neutrophils/100 WBC (Bld) 61.6 % Normal 50.0-75.0 [facility] Comment on above: Performed By: #### A 1C, ANEU, TSH, ADIFF, GFR, CBC, LIPID, VIDH, CMP #### [address] [address] .GFRon 07-31-2024 Estimated Glomerular Filtration Rate 48 ml/min/1.73sqm Normal [facility] Comment on above: Result Comment: Stages of Chronic Kidney Disease (CKD) Stage Description eGFR(ml/min/1.73 sq.m.) CKD 1 Normal kidney function or >=90 normal kindney function with possible kidney damage (ex. Proteinuria) CKD 2 Kidney damage with mild loss 60-89 of kidney function CKD 3a Mild to moderate loss of kidney 45-59 function CKD 3b Moderate to severe loss of 30-44 of kindey function CKD 4 Severe loss of kidney function 15-29 CKD 5 Kidney failure <15 Note: (go live 2024) the eGFR calculation was updated to the 2020 CKD-EPI creatinine equation without a race factor to calculate the eGFR results. Performed By: #### A 1C, ANEU, TSH, ADIFF, GFR, CBC, LIPID, VIDH, CMP ####[place] [id number] .NEUABSon 07-31-2024 Neutrophil, Absolute 4.4 10 3/mcL Normal 2.3-8.[address] [facility] Comment on above: Performed By: #### A 1C, ANEU, TSH, ADIFF, GFR, CBC, LIPID, VIDH, CMP #### [place] [address] A1Con 07-31-2024 Glucose [Mass/Vol] 123 mg/dL Normal [facility] Comment on above: Result Comment: Hattie mated Average Glucose calculated by equation ((28.7xA1C)-46.7) Estimated average glucose (eAG) is a calculated value from Hemoglobin A1C and is equal opportunity representative of the average blood glucose level in the last 2-3 month period. Normal range: less than 114 mg/dL Performed By: #### A 1C, ANEU, TSH, ADIFF, GFR, CBC, LIPID, VIDH, CMP ####[place] [address] HbA1c (Bld) [Mass fraction] 5.9 % Normal 4.3-6.4 [facility] Comment on above: Performed By: #### A 1C, ANEU, TSH, ADIFF, GFR, CBC, LIPID, VIDH, CMP ####[place] [address] CBCon 07-31-2024 Erythrocyte distribution width (RBC) [Ratio] 13.2 % Normal 11.5-15.5 [facility] Comment on above: Performed By: #### A 1C, ANEU, TSH, ADIFF, GFR, CBC, LIPID, VIDH, CMP #### [place] [address] Hematocrit (Bld) [Volume fraction] 38.4 % Normal 34.0-46.0 [facility] Comment on above: Performed By: #### A 1C, ANEU, TSH, ADIFF, GFR, CBC, LIPID, VIDH, CMP #### [address] [address] Hgb 13.1 G/dL Normal 12.0-16.0 [facility] Comment on above: Performed By: #### A 1C, ANEU, TSH, ADIFF, GFR, CBC, LIPID, VIDH, CMP #### [address] [address] MCH (RBC) [Entitic mass] 29.8 pg Normal 27.0-33.0 [facility] Comment on above: Performed By: #### A 1C, ANEU, TSH, ADIFF, GFR, CBC, LIPID, VIDH, CMP #### [address] [address] MCHC 34.2 G/dL Normal 32.0-36.0 [facility] Comment on above: Performed By: #### A 1C, ANEU, TSH, ADIFF, GFR, CBC, LIPID, VIDH, CMP #### [address] [address] MCV (RBC) [Entitic vol] 87.3 fL Normal 80.0-99.0 [facility] Comment on above: Performed By: #### A 1C, ANEU, TSH, ADIFF, GFR, CBC, LIPID, VIDH, CMP #### [address] [address] Platelet 258 10 3/mcL Normal 150-450 [facility] Comment on above: Performed By: #### A 1C, ANEU, TSH, ADIFF, GFR, CBC, LIPID, VIDH, CMP #### [address] [address] Platelet mean volume (Bld) [Entitic vol] 8.9 fL Normal 6.6-10.5 [facility] Comment on above: Performed By: #### A 1C, ANEU, TSH, ADIFF, GFR, CBC, LIPID, VIDH, CMP #### [address] [address] RBC 4.41 10 6/mcL Normal 4.10-5.30 [facility] Comment on above: Performed By: #### A 1C, ANEU, TSH, ADIFF, GFR, CBC, LIPID, VIDH, CMP #### [address] [address] WBC 7.1 10 3/mcL Normal 4.5-10.8 [facility] Comment on above: Performed By: #### A 1C, ANEU, TSH, ADIFF, GFR, CBC, LIPID, VIDH, CMP #### [address] [address] CMPon 07-31-2024 Albumin Level 3.7 G/dL Normal 3.4-4.8 [facility] Comment on above: Performed By: #### A 1C, ANEU, TSH, ADIFF, GFR, CBC, LIPID, VIDH, CMP ####[address] [address] Albumin/Globulin [Mass ratio] 0.8 {ratio} Low 1.1-2.5 [facility] Comment on above: Performed By: #### A 1C, ANEU, TSH, ADIFF, GFR, CBC, LIPID, VIDH, CMP ####[address] [address] ALP [Catalytic activity/Vol] 88 U/L Normal 40-135 [facility] Comment on above: Performed By: #### A 1C, ANEU, TSH, ADIFF, GFR, CBC, LIPID, VIDH, CMP ####[address] [address] ALT [Catalytic activity/Vol] 23 U/L Normal 14-59 [facility] Comment on above: Performed By: #### A 1C, ANEU, TSH, ADIFF, GFR, CBC, LIPID, VIDH, CMP ####[address] [address] AST [Catalytic activity/Vol] 26 U/L Normal 10-40 [facility] Comment on above: Performed By: #### A 1C, ANEU, TSH, ADIFF, GFR, CBC, LIPID, VIDH, CMP ####[address] [address] Bili Total 0.8 mg/dL Normal 0.2-1.0 [facility] Comment on above: Result Comment: Use of this assay is not recommended for patients undergoing treatment with eltrombopag due to the potential for falsely elevated results. Performed By: #### A 1C, ANEU, TSH, ADIFF, GFR, CBC, LIPID, VIDH, CMP ####[place] [address] BUN/Creatinine Ratio 20 ratio Normal 7-27 [facility] Comment on above: Performed By: #### A 1C, ANEU, TSH, ADIFF, GFR, CBC, LIPID, VIDH, CMP ####[place] [address] Calcium [Mass/Vol] 10.1 mg/dL Normal 8.4-10.2 [facility] Comment on above: Performed By: #### A 1C, ANEU, TSH, ADIFF, GFR, CBC, LIPID, VIDH, CMP ####[place] [address] Chloride [Moles/Vol] 98 mmol/L Normal 98-107 [facility] Comment on above: Performed By: #### A 1C, ANEU, TSH, ADIFF, GFR, CBC, LIPID, VIDH, CMP ####[place] [address] CO2 [Moles/Vol] 32 mmol/L High 23-31 [facility] Comment on above: Performed By: #### A 1C, ANEU, TSH, ADIFF, GFR, CBC, LIPID, VIDH, CMP ####[place] [address] Creatinine [Mass/Vol] 1.19 mg/dL High 0.55-1.02 [facility] Comment on above: Result Comment: Test ing performed on Siemens Dimension EXL analyzer using a modified kinetic Bryce technique. Performed By: #### A 1C, ANEU, TSH, ADIFF, GFR, CBC, LIPID, VIDH, CMP ####[place] [address] Electrolyte Balance 5.0 mEq/L Normal 4.0-15.0 [facility] Comment on above: Performed By: #### A 1C, ANEU, TSH, ADIFF, GFR, CBC, LIPID, VIDH, CMP ####[place] [address] [place], [place] [address] Globulin 4.7 G/dL High 1.5-3.8 [facility] Comment on above: Performed By: #### A 1C, ANEU, TSH, ADIFF, GFR, CBC, LIPID, VIDH, CMP ####[address] [place], [place] [address] Glucose [Mass/Vol] 107 mg/dL Normal 83-110 [facility] Comment on above: Performed By: #### A 1C, ANEU, TSH, ADIFF, GFR, CBC, LIPID, VIDH, CMP ####[address] [place], [place] [address] Potassium [Moles/Vol] 4.0 mmol/L Normal 3.5-5.1 [facility] Comment on above: Performed By: #### A 1C, ANEU, TSH, ADIFF, GFR, CBC, LIPID, VIDH, CMP ####[place] [address] [place], [place] [address] Sodium [Moles/Vol] 135 mmol/L Low 136-145 [facility] Comment on above: Performed By: #### A 1C, ANEU, TSH, ADIFF, GFR, CBC, LIPID, VIDH, CMP ####[address] [place], [place] [address] Total Protein 8.4 G/dL High 6.4-8.2 [facility] Comment on above: Performed By: #### A 1C, ANEU, TSH, ADIFF, GFR, CBC, LIPID, VIDH, CMP ####[place] [address] [place], [place] [address] Urea nitrogen [Mass/Vol] 24 mg/dL High 7-18 [facility] Comment on above: Performed By: #### A 1C, ANEU, TSH, ADIFF, GFR, CBC, LIPID, VIDH, CMP ####[facility] [place], [place] [address] LIPIDon 07-31-2024 Cholesterol [Mass/Vol] 144 mg/dL Normal 0-200 [facility] Comment on above: Result Comment: Chol esterol Reference Interval: Less than 200 Desirable 200-239 Borderline high risk 240 and above High risk Performed By: #### A 1C, ANEU, TSH, ADIFF, GFR, CBC, LIPID, VIDH, CMP ####[address] [address] Cholesterol in HDL [Mass/Vol] 50 mg/dL Normal 40-60 [facility] Comment on above: Performed By: #### A 1C, ANEU, TSH, ADIFF, GFR, CBC, LIPID, VIDH, CMP ####[place] [address] [place], [place] [address] Cholesterol in LDL [Mass/Vol] 70 mg/dL Normal 0-130 [facility] Comment on above: Performed By: #### A 1C, ANEU, TSH, ADIFF, GFR, CBC, LIPID, VIDH, CMP ####[address] [address] Triglyceride [Mass/Vol] 121 mg/dL Normal 0-150 [facility] Comment on above: Result Comment: Trig lyceride Reference Interval: Less than 150 Normal 150-199 Borderline high risk 200-499 High risk 500 or higher Very high risk Performed By: #### A 1C, ANEU, TSH, ADIFF, GFR, CBC, LIPID, VIDH, CMP ####[place] [address] [place], [place] [address] TSHon 07-31-2024 TSH Qn 1.97 m[IU]/L Normal 0.36-3.74 [facility] Comment on above: Performed By: #### A 1C, ANEU, TSH, ADIFF, GFR, CBC, LIPID, VIDH, CMP ####[place] [address] [place], [place] [address] VIDHon 07-31-2024 Vit. D 25-Hydroxy 59.3 ng/mL Normal [facility] Comment on above: Result Comment: Inte rpretive Values Based on Total 25([place]) Vitamin D: Deficient <20 ng/mL Insufficient 20 - <30 ng/mL Sufficient 30-100 ng/mL Performed By: #### A 1C, ANEU, TSH, ADIFF, GFR, CBC, LIPID, VIDH, CMP ####[address] [place], [place] [address] .Auto Diffon 01-27-2024 Basophil, Absolute 0.1 10 3/mcL Normal 0.0-0.3 [facility] Comment on above: Performed By: #### B MP, GFR, PRO, CBC, ANEU, ADIFF #### [address] [address] Basophils/100 WBC (Bld) 1.4 % Normal 0.0-2.5 [facility] Comment on above: Performed By: #### B MP, GFR, PRO, CBC, ANEU, ADIFF #### [address] [address] Eosinophil, Absolute 0.3 10 3/mcL Normal 0.0-0.7 [facility] Comment on above: Performed By: #### B MP, GFR, PRO, CBC, ANEU, ADIFF #### [address] [address] Eosinophils/100 WBC (Bld) 3.9 % Normal 0.0-6.0 [facility] Comment on above: Performed By: #### B MP, GFR, PRO, CBC, ANEU, ADIFF #### [address] [address] Lymphocyte, Absolute 1.3 10 3/mcL Normal 0.9-4.3 [facility] Comment on above: Performed By: #### B MP, GFR, PRO, CBC, ANEU, ADIFF #### [address] [address] Lymphocytes/100 WBC (Bld) 15.9 % Low 20.0-40.0 [facility] Comment on above: Performed By: #### B MP, GFR, PRO, CBC, ANEU, ADIFF #### [address] [address] Monocyte, Absolute 0.7 10 3/mcL Normal 0.1-1.4 [facility] Comment on above: Performed By: #### B MP, GFR, PRO, CBC, ANEU, ADIFF #### [address] [address] Monocytes/100 WBC (Bld) 8.0 % Normal 2.0-13.0 [facility] Comment on above: Performed By: #### B MP, GFR, PRO, CBC, ANEU, ADIFF #### [address] [address] Neutrophils/100 WBC (Bld) 70.8 % Normal 50.0-75.0 [facility] Comment on above: Performed By: #### B MP, GFR, PRO, CBC, ANEU, ADIFF #### [address] [address] .GFRon 01-27-2024 GFR >60 Normal [facility] Comment on above: Result Comment: GFR Population mean for , Non- Americans Ages 20-29 = 116 mL/min/1.73 sq.m. Ages 30-39 = 107 mL/min/1.73 sq.m. Ages 40-49 = 99 mL/min/1.73 sq.m. Ages 50-59 = 93 mL/min/1.73 sq.m. Ages 60-69 = 85 mL/min/1.73 sq.m. Ages 70+ = 75 mL/min/1.73 sq.m. Chronic Kidney Disease: Less than 60 mL/min/1.73 square meters End Stage Renal Disease: Less than 15 mL/min/1.73 square meters Performed By: #### B MP, GFR, PRO, CBC, ANEU, ADIFF #### [address] [address] GFR Non- 58 ml/min/1.73sqm [facility] Comment on above: Result Comment: GFR Population mean for , Non- Americans Ages 20-29 = 116 mL/min/1.73 sq.m. Ages 30-39 = 107 mL/min/1.73 sq.m. Ages 40-49 = 99 mL/min/1.73 sq.m. Ages 50-59 = 93 mL/min/1.73 sq.m. Ages 60-69 = 85 mL/min/1.73 sq.m. Ages 70+ = 75 mL/min/1.73 sq.m. Chronic Kidney Disease: Less than 60 mL/min/1.73 square meters End Stage Renal Disease: Less than 15 mL/min/1.73 square meters Performed By: #### B MP, GFR, PRO, CBC, ANEU, ADIFF #### [address] [address] .NEUABSon 01-27-2024 Neutrophil, Absolute 5.8 10 3/mcL Normal 2.3-8.1 [facility] Comment on above: Performed By: #### B MP, GFR, PRO, CBC, ANEU, ADIFF #### [address] [address] BMPon 01-27-2024 BUN/Creatinine Ratio 19.1 ratio Normal 10.0-22.0 [facility] Comment on above: Performed By: #### B MP, GFR, PRO, CBC, ANEU, ADIFF #### [address] [address] Calcium [Mass/Vol] 10.2 mg/dL Normal 8.7-10.4 [facility] Comment on above: Performed By: #### B MP, GFR, PRO, CBC, ANEU, ADIFF #### [address] [address] Chloride [Moles/Vol] 103 mmol/L Normal 98-110 [facility] Comment on above: Performed By: #### B MP, GFR, PRO, CBC, ANEU, ADIFF #### [address] [address] CO2 [Moles/Vol] 25 mmol/L Normal 22-32 [facility] Comment on above: Performed By: #### B MP, GFR, PRO, CBC, ANEU, ADIFF #### [address] [address] Creatinine [Mass/Vol] 0.94 mg/dL Normal 0.50-1.20 [facility] Comment on above: Result Comment: Test ing performed on [employer] analyzer using enzymatic creatinine methodology. Performed By: #### B MP, GFR, PRO, CBC, ANEU, ADIFF #### [address] [address] Electrolyte Balance 8.0 mEq/L Normal 4.0-15.0 [facility] Comment on above: Performed By: #### B MP, GFR, PRO, CBC, ANEU, ADIFF #### [place] [id number] Glucose [Mass/Vol] 105 mg/dL Normal 82-115 [facility] Comment on above: Performed By: #### B MP, GFR, PRO, CBC, ANEU, ADIFF #### [place] [id number] Potassium [Moles/Vol] 3.8 mmol/L Normal 3.5-5.0 [facility] Comment on above: Performed By: #### B MP, GFR, PRO, CBC, ANEU, ADIFF #### [place] [id number] Sodium [Moles/Vol] 136 mmol/L Normal 136-145 [facility] Comment on above: Performed By: #### B MP, GFR, PRO, CBC, ANEU, ADIFF #### [address] [address] Urea nitrogen [Mass/Vol] 18.0 mg/dL Normal 8.0-22.0 [facility] Comment on above: Performed By: #### B MP, GFR, PRO, CBC, ANEU, ADIFF #### [address] [address] CBCon 01-27-2024 Erythrocyte distribution width (RBC) [Ratio] 13.1 % Normal 11.5-15.5 [facility] Comment on above: Performed By: #### B MP, GFR, PRO, CBC, ANEU, ADIFF #### [address] [address] Hematocrit (Bld) [Volume fraction] 36.4 % Normal 34.0-46.0 [facility] Comment on above: Performed By: #### B MP, GFR, PRO, CBC, ANEU, ADIFF #### [place] [address] Hgb 12.2 G/dL Normal 12.0-16.0 [facility] Comment on above: Performed By: #### B MP, GFR, PRO, CBC, ANEU, ADIFF #### [place] [address] MCH (RBC) [Entitic mass] 29.0 pg Normal 27.0-33.0 [facility] Comment on above: Performed By: #### B MP, GFR, PRO, CBC, ANEU, ADIFF #### [place] [address] MCHC 33.7 G/dL Normal 32.0-36.0 [facility] Comment on above: Performed By: #### B MP, GFR, PRO, CBC, ANEU, ADIFF #### [place] [address] MCV (RBC) [Entitic vol] 86.2 fL Normal 80.0-99.0 [facility] Comment on above: Performed By: #### B MP, GFR, PRO, CBC, ANEU, ADIFF #### [place] [address] Platelet 292 10 3/mcL Normal 150-450 [facility] Comment on above: Performed By: #### B MP, GFR, PRO, CBC, ANEU, ADIFF #### [place] [address] Platelet mean volume (Bld) [Entitic vol] 8.4 fL Normal 6.6-10.5 [facility] Comment on above: Performed By: #### B MP, GFR, PRO, CBC, ANEU, ADIFF #### [place] [id number] RBC 4.22 10 6/mcL Normal 4.10-5.30 [facility] Comment on above: Performed By: #### B MP, GFR, PRO, CBC, ANEU, ADIFF #### [place] [id number] WBC 8.2 10 3/mcL Normal 4.5-10.8 [facility] Comment on above: Performed By: #### B MP, GFR, PRO, CBC, ANEU, ADIFF #### [place] [address] [place] [address] LABORATORYOrdered By: SYSTEM SYSTEM on 01-27-2024 Basophils (Bld) [#/Vol] 0.1 103/mcL Normal 0.0 - 0.3 10^3/mcL Workflow SS Basophils/100 WBC (Bld) 1.4 % Normal 0.0 - 2.5 % Workflow SS Calcium [Mass/Vol] 10.2 mg/dL Normal 8.7 - 10. 4 mg/dL ADM SS Chloride [Moles/Vol] 103 mmol/L Normal 98 - 11 0 mEq/L ADM SS CO2 [Moles/Vol] 25 mmol/L Normal 22 - 32 mEq/L ADM SS Creatinine [Mass/Vol] 0.94 mg/dL Normal 0.50 - 1.20 mg/dL ADM SS Comment on above: Interpretive Data: T esting performed on [employer] analyzer using enzymatic creatinine methodology. Electrolyte Balance 8.0 mEq/L Normal 4.0 - 15 .0 mEq/L ADM SS Eosinophils (Bld) [#/Vol] 0.3 103/mcL Normal 0.0 - 0.7 10^3/mcL Workflow SS Eosinophils/100 WBC (Bld) 3.9 % Normal 0.0 - 6.0 % AH Workflow SS Erythrocyte distribution width (RBC) [Ratio] 13.1 % Normal 11.5 - 15.5 % AH Workflow SS GFR/1.73 sq M.predicted among blacks MDRD (S/P/Bld) [Vol rate/Area] ml/min/1.73sqm Invalid Interpretation Code Chemistry S Comment on above: Interpretive Data: GFR Population mean for , Non- Americans Ages 20-29 = 116 mL/min/1.73 sq.m. Ages 30-39 = 107 mL/min/1.73 sq.m. Ages 40-49 = 99 mL/min/1.73 sq.m. Ages 50-59 = 93 mL/min/1.73 sq.m. Ages 60-69 = 85 mL/min/1.73 sq.m. Ages 70+ = 75 mL/min/1.73 sq.m. Chronic Kidney Disease: Less than 60 mL/min/1.73 square meters End Stage Renal Disease: Less than 15 mL/min/1.73 square meters GFR/1.73 sq M.predicted among non-blacks MDRD (S/P/Bld) [Vol rate/Area] 58 ml/min/1.73sqm Invalid Interpretation Code Chemistry S Comment on above: Interpretive Data: GFR Population mean for , Non- Americans Ages 20-29 = 116 mL/min/1.73 sq.m. Ages 30-39 = 107 mL/min/1.73 sq.m. Ages 40-49 = 99 mL/min/1.73 sq.m. Ages 50-59 = 93 mL/min/1.73 sq.m. Ages 60-69 = 85 mL/min/1.73 sq.m. Ages 70+ = 75 mL/min/1.73 sq.m. Chronic Kidney Disease: Less than 60 mL/min/1.73 square meters End Stage Renal Disease: Less than 15 mL/min/1.73 square meters Glucose [Mass/Vol] 105 mg/dL Normal 82 - 115 mg/dL AH ADM SS Hematocrit (Bld) [Volume fraction] 36.4 % Normal 34.0 - 46.0 % AH Workflow SS Hemoglobin (Bld) [Mass/Vol] 12.2 G/dL Normal 12.0 - 16.0 G/dL AH Workflow SS Lymphocytes (Bld) [#/Vol] 1.3 103/mcL Normal 0.9 - 4.3 10^3/mcL AH Workflow SS Lymphocytes/100 WBC (Bld) 15.9 % Low 20.0 - 40.0 % AH Workflow SS MCH (RBC) [Entitic mass] 29.0 pg Normal 27.0 - 33.0 pg AH Workflow SS MCHC 33.7 G/dL Normal 32.0 - 36.0 G/dL AH Workflow SS MCV (RBC) [Entitic vol] 86.2 fL Normal 80.0 - 99.0 fL AH Workflow SS Monocytes (Bld) [#/Vol] 0.7 103/mcL Normal 0.1 - 1.4 10^3/mcL AH Workflow SS Monocytes/100 WBC (Bld) 8.0 % Normal 2.0 - 13.0 % AH Workflow SS Neutrophils (Bld) [#/Vol] 5.8 103/mcL Normal 2.3 - 8.1 10^3/mcL Workflow SS Neutrophils/100 WBC (Bld) 70.8 % Normal 50.0 - 75.0 % Workflow SS Platelet mean volume (Bld) [Entitic vol] 8.4 fL Normal 6.6 - 10.5 fL Workflow SS Platelets (Bld) [#/Vol] 292 103/mcL Normal 150 - 450 10^3/mcL Workflow SS Potassium [Moles/Vol] 3.8 mmol/L Normal 3.5 - 5.0 mEq/L ADM SS PT Coag (PPP) [Time] 17.6 s High 9.0 - 1 4.4 seconds [facility] Comment on above: Interpretive Data: E ffective 11/07/07, Protime results may be affected by some antibiotics (i.e. Ciprofloxacin, Azithromycin, Bactrim) which may potentiate the action of oral anticoagulants, with further increases in Protime/INR. PT International Ratio 1.5 ratio Invalid Interpretation Code HemMSub Comment on above: Interpretive Data: [employer] (CHEST, 1991, 102:312S-25S) recommended therapeutic range for oral anticoagulant therapy is: LOW RISK: Prophylaxis of venous thrombosis INR: 2.0-3.0 Treatment of pulmonary embolism 2.0-3.0 Prevention of systemic embolism 2.0-3.0 HIGH RISK: Mechanical prosthetic valves 2.5-3.5 RBC (Bld) [#/Vol] 4.22 106/mcL Normal 4.10 - 5.3 0 10^6/mcL Workflow SS Sodium [Moles/Vol] 136 mmol/L Normal 136 - 145 mEq/L ADM SS Urea nitrogen [Mass/Vol] 18.0 mg/dL Normal 8.0 - 22.0 mg/dL ADM SS Urea nitrogen/Creatinine [Mass ratio] 19.1 ratio Normal 10.0 - 22.0 ratio ADM SS WBC (Bld) [#/Vol] 8.2 103/mcL Normal 4.5 - 10.8 10^3/mcL Workflow SS PROon 01-27-2024 INR Coag (PPP) [Relative time] 1.5 {INR} Normal [facility] Comment on above: Result Comment: [employer] (CHEST, 1992, 102:312S-25S) recommended therapeutic range for oral anticoagulant therapy is: LOW RISK: Prophylaxis of venous thrombosis INR: 2.0-3.0 Treatment of pulmonary embolism 2.0-3.0 Prevention of systemic embolism 2.0-3.0 HIGH RISK: Mechanical prosthetic valves 2.5-3.5 Performed By: #### B MP, GFR, PRO, CBC, ANEU, ADIFF #### [place] [id number] [place] [address] PT Coag (PPP) [Time] 17.6 s High 9.0-14.4 [facility] Comment on above: Result Comment: Effe ctive 11/07/07, Protime results may be affected by some antibiotics (i.e. Ciprofloxacin, Azithromycin, Bactrim) which may potentiate the action of oral anticoagulants, with further increases in Protime/INR. Performed By: #### B MP, GFR, PRO, CBC, ANEU, ADIFF #### [place] [id number] [place] [address] LABORATORYOrdered By: SYSTEM SYSTEM on 12-30-2023 Albumin BCP dye [Mass/Vol] 4.1 G/dL Normal 3.4 - 4.8 G/dL AO ADM SS Albumin/Globulin [Mass ratio] 1.0 {ratio} Low 1.1 - 2.5 ratio AO ADM SS ALP [Catalytic activity/Vol] 86 U/L Normal 40 - 135 U/L AO ADM SS ALT With P-5'-P [Catalytic activity/Vol] 23 U/L Normal 14 - 59 U/L AO ADM SS AST With P-5'-P [Catalytic activity/Vol] 18 U/L Normal 10 - 40 U/L AO ADM SS Basophils (Bld) [#/Vol] 0.1 103/mcL Normal 0.0 - 0.2 10^3/mcL AO Workflow SS Basophils/100 WBC (Bld) 1.2 % Normal 0.0 - 2.5 % AO Workflow SS Bilirubin [Mass/Vol] 0.8 mg/dL Normal 0.2 - 1 .0 mg/dL AO ADM SS Comment on above: Interpretive Data: U se of this assay is not recommended for patients undergoing treatment with eltrombopag due to the potential for falsely elevated results. Calcium [Mass/Vol] 10.0 mg/dL Normal 8.4 - 10. 2 mg/dL AO ADM SS Chloride [Moles/Vol] 95 mmol/L Low 98 - 10 7 mmol/L AO ADM SS CO2 [Moles/Vol] 30 mmol/L Normal 23 - 31 mmol/L AO ADM SS Creatinine [Mass/Vol] 1.12 mg/dL High 0.55 - 1.02 mg/dL AO ADM SS Comment on above: Interpretive Data: T esting performed on Siemens Dimension EXL analyzer using a modified kinetic Bryce technique. Electrolyte Balance 9.0 mEq/L Normal 4.0 - 15 .0 mEq/L AO ADM SS Eosinophil, Absolute 0.2 103/mcL Normal 0.0 - 0 .4 10^3/mcL AO Workflow SS Eosinophils/100 WBC (Bld) 3.0 % Normal 0.0 - 7.0 % AO Workflow SS Erythrocyte distribution width (RBC) [Ratio] 13.1 % Normal 11.5 - 14.5 % AO Workflow SS GFR/1.73 sq M.predicted among blacks MDRD (S/P/Bld) [Vol rate/Area] 58 ml/min/1.73sqm Invalid Interpretation Code AO Chemistry S Comment on above: Interpretive Data: GFR Population mean for , Non- Americans Ages 20-29 = 116 mL/min/1.73 sq.m. Ages 30-39 = 107 mL/min/1.73 sq.m. Ages 40-49 = 99 mL/min/1.73 sq.m. Ages 50-59 = 93 mL/min/1.73 sq.m. Ages 60-69 = 85 mL/min/1.73 sq.m. Ages 70+ = 75 mL/min/1.73 sq.m. Chronic Kidney Disease: Less than 60 mL/min/1.73 square meters End Stage Renal Disease: Less than 15 mL/min/1.73 square meters GFR/1.73 sq M.predicted among non-blacks MDRD (S/P/Bld) [Vol rate/Area] 48 ml/min/1.73sqm Invalid Interpretation Code AO Chemistry S Comment on above: Interpretive Data: GFR Population mean for , Non- Americans Ages 20-29 = 116 mL/min/1.73 sq.m. Ages 30-39 = 107 mL/min/1.73 sq.m. Ages 40-49 = 99 mL/min/1.73 sq.m. Ages 50-59 = 93 mL/min/1.73 sq.m. Ages 60-69 = 85 mL/min/1.73 sq.m. Ages 70+ = 75 mL/min/1.73 sq.m. Chronic Kidney Disease: Less than 60 mL/min/1.73 square meters End Stage Renal Disease: Less than 15 mL/min/1.73 square meters Globulin 4.0 G/dL Invalid Interpretation Code AO ADM SS Glucose [Mass/Vol] 102 mg/dL Normal 83 - 110 mg/dL AO ADM SS Glucose [Mass/Vol] 120 mg/dL Invalid Interpretation Code AO Chemistry S Comment on above: Interpretive Data: E stimated average glucose (eAG) is a calculated value from Hemoglobin A1C and is equal opportunity representative of the average blood glucose level in the last 2-3 month period. Normal range: less than 114 mg/dL HbA1c (Bld) [Mass fraction] 5.8 % Normal 4.3 - 6.4 % AO ADM SS Hematocrit (Bld) [Volume fraction] 38.2 % Normal 37.0 - 47.0 % AO Workflow SS Hemoglobin (Bld) [Mass/Vol] 13.0 G/dL Normal 12.0 - 16.0 G/dL AO Workflow SS Lymphocytes (Bld) [#/Vol] 1.3 103/mcL Normal 0.8 - 3.9 10^3/mcL AO Workflow SS Lymphocytes/100 WBC (Bld) 16.5 % Normal 10.0 - 50.0 % AO Workflow SS MCH (RBC) [Entitic mass] 29.9 pg Normal 27.0 - 31.2 pg AO Workflow SS MCHC 34.0 G/dL Normal 33.0 - 37.0 G/dL AO Workflow SS MCV (RBC) [Entitic vol] 88.0 fL Normal 80.0 - 94.0 fL AO Workflow SS Monocytes (Bld) [#/Vol] 0.7 103/mcL Normal 0.2 - 1.0 10^3/mcL AO Workflow SS Monocytes/100 WBC (Bld) 8.9 % Normal 1.7 - 13.0 % AO Workflow SS Neutrophils (Bld) [#/Vol] 5.5 103/mcL Normal 2.9 - 6.2 10^3/mcL AO Workflow SS Neutrophils/100 WBC (Bld) 70.4 % Normal 37.0 - 80.0 % AO Workflow SS Platelet mean volume (Bld) [Entitic vol] 8.9 fL Normal 7.4 - 10.4 fL AO Workflow SS Platelets (Bld) [#/Vol] 276 103/mcL Normal 130 - 400 10^3/mcL AO Workflow SS Potassium [Moles/Vol] 4.1 mmol/L Normal 3.5 - 5.1 mmol/L AO ADM SS Protein [Mass/Vol] 8.1 G/dL Normal 6.4 - 8.2 G/dL AO ADM SS RBC (Bld) [#/Vol] 4.35 106/mcL Normal 4.20 - 5.4 0 10^6/mcL AO Workflow SS Sodium [Moles/Vol] 134 mmol/L Low 136 - 145 mmol/L AO ADM SS TSH Qn 2.14 m[IU]/L Normal 0.36 - 3.74 mcIU/mL AO ADM SS Urea nitrogen [Mass/Vol] 20 mg/dL High 7 - 18 mg/dL AO ADM SS Urea nitrogen/Creatinine [Mass ratio] 18 ratio Normal 7 - 27 ratio AO ADM SS WBC (Bld) [#/Vol] 7.8 103/mcL Normal 4.6 - 10.8 10^3/mcL AO Workflow SS LABORATORYOrdered By: Sheryl Samuel on 12-30-2023 Cholesterol [Mass/Vol] 133 mg/dL Normal 0 - 200 mg/dL AO ADM SS Comment on above: Interpretive Data: C holesterol Reference Interval: Less than 200 Desirable 200-239 Borderline high risk 240 and above High risk Cholesterol in HDL [Mass/Vol] 47 mg/dL Normal 40 - 60 mg/dL AO ADM SS Cholesterol in LDL [Mass/Vol] 67 mg/dL Normal 0 - 130 mg/dL AO ADM SS Triglyceride [Mass/Vol] 96 mg/dL Normal 0 - 150 mg/dL AO ADM SS Comment on above: Interpretive Data: T riglyceride Reference Interval: Less than 150 Normal 150-199 Borderline high risk 200-499 High risk 500 or higher Very high risk MA MAMMOGRAM SCREENING BILAT ERAL W/TOMOon 08-25-2023 MA MAMMOGRAM SCREENING BILATERAL W/RAMAKRISHNA ORIGINAL FROM: [facility] [address] [place] [id number] PROCEDURE FOR: LASHANDA Rivera [address] [place] [address] Home: PID#: [id number] Exam#: [id number] : 1950 Age: 73 TO: SHER TOM DO [address] [place], [place] [address] Fax: NO FAX EXAMINATION: SCREENING DIGITAL BILATERAL MAMMOGRAM WITH TOMOSYNTHESIS, 08/22/2023 3:13 pm TECHNIQUE: Screening mammography of the bilateral breasts was performed with tomosynthesis. 2D standard and 3D tomosynthesis combination imaging performed through both breasts in the MLO and CC projection. Computer aided detection was utilized in the interpretation of this exam. COMPARISON: 08/09/2022, 01/30/2021 HISTORY: Breast cancer screening. FINDINGS: BREAST DENSITY: Scattered fibroglandular tissue There are benign calcifications in both breasts. There are no significant masses or calcifications. IMPRESSION: No mammographic evidence of malignancy. Continued screening with annual mammograms is recommended. Tyrer Cuzick risk calculations, generated with the history provided, report this patient's 10 year risk and lifetime risk for developing breast cancer at 5.8% and 7.1%, respectively. Based on this assessment tool, if the patient's calculated lifetime risk is below 20%, then the patient is considered at average risk for developing breast cancer. If the patient's calculated lifetime risk is at or above 20%, then the patient is considered high risk for developing breast cancer and may be a candidate for supplemental breast MRI screening in addition to annual mammographic screening per the [employer]. I have personally reviewed the images of this examination and agree with the resident's findings and interpretation. BIRADS: MAMMOGRAM BI-RADS: 2: Benign finding RECALL: 1 year screening RECALL TYPE: mammo LETTER SENT: Normal BI-RADS 1 and 2 Interpreted by: Richard Reese MD Preliminary Report By: Pepe Pillai Electronically signed By Richard Reese MD Dictated Date: 08/25/2023 2:26:01 PM Prelim Date: 08/25/2023 4:52:56 PM Sign Date: 08/25/2023 4:52:56 PM Ordering Provider: SHER TOM Radiology Technologist: ANUPAMA KWON RT(R)(M)(CT) [employer] letter sent: Normal BI-RADS 1 and 2 Mammogram BI-RADS: 2 Benign Normal [facility] ([place]) .Auto Diffon 08-03-2023 Basophil, Absolute 0.1 10 3/mcL Normal 0.0-0.2 [facility] ([place]) Comment on above: Performed By: #### G FR, A1C, CMP, TSH, VIDH, LIPID, ANEU, ADIFF, CBC #### [address] [address] Basophils/100 WBC (Bld) 1.5 % Normal 0.0-2.5 [facility] ([place]) Comment on above: Performed By: #### G FR, A1C, CMP, TSH, VIDH, LIPID, ANEU, ADIFF, CBC #### [address] [address] Eosinophil, Absolute 0.4 10 3/mcL Normal 0.0-0.4 [facility] ([place]) Comment on above: Performed By: #### G FR, A1C, CMP, TSH, VIDH, LIPID, ANEU, ADIFF, CBC #### [address] [address] Eosinophils/100 WBC (Bld) 4.9 % Normal 0.0-7.0 [facility] ([place]) Comment on above: Performed By: #### G FR, A1C, CMP, TSH, VIDH, LIPID, ANEU, ADIFF, CBC #### [address] [address] Lymphocyte, Absolute 1.6 10 3/mcL Normal 0.8-3.9 [facility] ([place]) Comment on above: Performed By: #### G FR, A1C, CMP, TSH, VIDH, LIPID, ANEU, ADIFF, CBC #### [address] [address] Lymphocytes/100 WBC (Bld) 22.3 % Normal 10.0-50.0 [facility] ([place]) Comment on above: Performed By: #### G FR, A1C, CMP, TSH, VIDH, LIPID, ANEU, ADIFF, CBC #### [address] [address] Monocyte, Absolute 0.8 10 3/mcL Normal 0.2-1.0 [facility] ([place]) Comment on above: Performed By: #### G FR, A1C, CMP, TSH, VIDH, LIPID, ANEU, ADIFF, CBC #### [address] [address] Monocytes/100 WBC (Bld) 10.9 % Normal 1.7-13.0 [facility] ([place]) Comment on above: Performed By: #### G FR, A1C, CMP, TSH, VIDH, LIPID, ANEU, ADIFF, CBC #### [address] [address] Neutrophils/100 WBC (Bld) 60.4 % Normal 37.0-80.0 [facility] ([place]) Comment on above: Performed By: #### G FR, A1C, CMP, TSH, VIDH, LIPID, ANEU, ADIFF, CBC #### [address] [address] .GFRon 08-03-2023 GFR 58 ml/min/1.73sqm Normal [facility] ([place]) Comment on above: Result Comment: GFR Population mean for , Non- Americans Ages 20-29 = 116 mL/min/1.73 sq.m. Ages 30-39 = 107 mL/min/1.73 sq.m. Ages 40-49 = 99 mL/min/1.73 sq.m. Ages 50-59 = 93 mL/min/1.73 sq.m. Ages 60-69 = 85 mL/min/1.73 sq.m. Ages 70+ = 75 mL/min/1.73 sq.m. Chronic Kidney Disease: Less than 60 mL/min/1.73 square meters End Stage Renal Disease: Less than 15 mL/min/1.73 square meters Performed By: #### G FR, A1C, CMP, TSH, VIDH, LIPID, ANEU, ADIFF, CBC #### [place] [id number] GFR Non- 48 ml/min/1.73sqm Normal [facility] ([place]) Comment on above: Result Comment: GFR Population mean for , Non- Americans Ages 20-29 = 116 mL/min/1.73 sq.m. Ages 30-39 = 107 mL/min/1.73 sq.m. Ages 40-49 = 99 mL/min/1.73 sq.m. Ages 50-59 = 93 mL/min/1.73 sq.m. Ages 60-69 = 85 mL/min/1.73 sq.m. Ages 70+ = 75 mL/min/1.73 sq.m. Chronic Kidney Disease: Less than 60 mL/min/1.73 square meters End Stage Renal Disease: Less than 15 mL/min/1.73 square meters Performed By: #### G FR, A1C, CMP, TSH, VIDH, LIPID, ANEU, ADIFF, CBC #### [place] [address] .NEUABSon 08-03-2023 Neutrophil, Absolute 4.4 10 3/mcL Normal 2.9-6.2 [facility] ([place]) Comment on above: Performed By: #### G FR, A1C, CMP, TSH, VIDH, LIPID, ANEU, ADIFF, CBC #### [place] [address] A1Con 08-03-2023 HbA1c (Bld) [Mass fraction] 6.1 % Normal 4.3-6.4 [facility] ([place]) Comment on above: Performed By: #### G FR, A1C, CMP, TSH, VIDH, LIPID, ANEU, ADIFF, CBC #### [place] [address] CBCon 08-03-2023 Erythrocyte distribution width (RBC) [Ratio] 13.1 % Normal 11.5-14.5 [facility] ([place]) Comment on above: Performed By: #### G FR, A1C, CMP, TSH, VIDH, LIPID, ANEU, ADIFF, CBC #### [place] [phone] Hematocrit (Bld) [Volume fraction] 38.5 % Normal 37.0-47.0 [facility] ([place]) Comment on above: Performed By: #### G FR, A1C, CMP, TSH, VIDH, LIPID, ANEU, ADIFF, CBC #### [address] [address] Hgb 13.2 G/dL Normal 12.0-16.0 [facility] ([place]) Comment on above: Performed By: #### G FR, A1C, CMP, TSH, VIDH, LIPID, ANEU, ADIFF, CBC #### [address] [address] MCH (RBC) [Entitic mass] 29.7 pg Normal 27.0-31.2 [facility] ([place]) Comment on above: Performed By: #### G FR, A1C, CMP, TSH, VIDH, LIPID, ANEU, ADIFF, CBC #### [address] [address] MCHC 34.3 G/dL Normal 33.0-37.0 [facility] ([place]) Comment on above: Performed By: #### G FR, A1C, CMP, TSH, VIDH, LIPID, ANEU, ADIFF, CBC #### [address] [address] MCV (RBC) [Entitic vol] 86.8 fL Normal 80.0-94.0 [facility] ([place]) Comment on above: Performed By: #### G FR, A1C, CMP, TSH, VIDH, LIPID, ANEU, ADIFF, CBC #### [address] [address] Platelet 291 10 3/mcL Normal 130-400 [facility] ([place]) Comment on above: Performed By: #### G FR, A1C, CMP, TSH, VIDH, LIPID, ANEU, ADIFF, CBC #### [address] [address] Platelet mean volume (Bld) [Entitic vol] 8.5 fL Normal 7.4-10.4 [facility] ([place]) Comment on above: Performed By: #### G FR, A1C, CMP, TSH, VIDH, LIPID, ANEU, ADIFF, CBC #### [address] [address] RBC 4.44 10 6/mcL Normal 4.20-5.40 [facility] ([place]) Comment on above: Performed By: #### G FR, A1C, CMP, TSH, VIDH, LIPID, ANEU, ADIFF, CBC #### [address] [address] WBC 7.2 10 3/mcL Normal 4.6-10.8 [facility] ([place]) Comment on above: Performed By: #### G FR, A1C, CMP, TSH, VIDH, LIPID, ANEU, ADIFF, CBC #### [address] [address] CMPon 08-03-2023 Albumin Level 3.9 G/dL Normal 3.4-4.8 [facility] ([place]) Comment on above: Performed By: #### G FR, A1C, CMP, TSH, VIDH, LIPID, ANEU, ADIFF, CBC #### [address] [address] Albumin/Globulin [Mass ratio] 1.0 {ratio} Low 1.1-2.5 [facility] ([place]) Comment on above: Performed By: #### G FR, A1C, CMP, TSH, VIDH, LIPID, ANEU, ADIFF, CBC #### [address] [address] ALP [Catalytic activity/Vol] 94 U/L Normal 40-135 [facility] ([place]) Comment on above: Performed By: #### G FR, A1C, CMP, TSH, VIDH, LIPID, ANEU, ADIFF, CBC #### [address] [address] ALT [Catalytic activity/Vol] 27 U/L Normal 14-59 [facility] ([place]) Comment on above: Performed By: #### G FR, A1C, CMP, TSH, VIDH, LIPID, ANEU, ADIFF, CBC #### [address] [address] AST [Catalytic activity/Vol] 19 U/L Normal 10-40 [facility] ([place]) Comment on above: Performed By: #### G FR, A1C, CMP, TSH, VIDH, LIPID, ANEU, ADIFF, CBC #### [address] [address] Bili Total 0.5 mg/dL Normal 0.2-1.0 [facility] ([place]) Comment on above: Result Comment: Use of this assay is not recommended for patients undergoing treatment with eltrombopag due to the potential for falsely elevated results. Performed By: #### G FR, A1C, CMP, TSH, VIDH, LIPID, ANEU, ADIFF, CBC #### [address] [address] BUN/Creatinine Ratio 21 ratio Normal 7-27 [facility] ([place]) Comment on above: Performed By: #### G FR, A1C, CMP, TSH, VIDH, LIPID, ANEU, ADIFF, CBC #### [address] [address] Calcium [Mass/Vol] 9.3 mg/dL Normal 8.4-10.2 [facility] ([place]) Comment on above: Performed By: #### G FR, A1C, CMP, TSH, VIDH, LIPID, ANEU, ADIFF, CBC #### [address] [address] Chloride [Moles/Vol] 99 mmol/L Normal 98-107 [facility] ([place]) Comment on above: Performed By: #### G FR, A1C, CMP, TSH, VIDH, LIPID, ANEU, ADIFF, CBC #### [address] [address] CO2 [Moles/Vol] 33 mmol/L High 23-31 [facility] ([place]) Comment on above: Performed By: #### G FR, A1C, CMP, TSH, VIDH, LIPID, ANEU, ADIFF, CBC #### [address] [address] Creatinine [Mass/Vol] 1.12 mg/dL High 0.55-1.02 [facility] ([place]) Comment on above: Performed By: #### G FR, A1C, CMP, TSH, VIDH, LIPID, ANEU, ADIFF, CBC #### [address] [address] Electrolyte Balance 3.0 mEq/L Low 4.0-15.0 [facility] ([place]) Comment on above: Performed By: #### G FR, A1C, CMP, TSH, VIDH, LIPID, ANEU, ADIFF, CBC #### [address] [address] Globulin 3.9 G/dL Normal [facility] ([place]) Comment on above: Performed By: #### G FR, A1C, CMP, TSH, VIDH, LIPID, ANEU, ADIFF, CBC #### [address] [address] Glucose [Mass/Vol] 100 mg/dL Normal 83-110 [facility] ([place]) Comment on above: Performed By: #### G FR, A1C, CMP, TSH, VIDH, LIPID, ANEU, ADIFF, CBC #### [address] [address] Potassium [Moles/Vol] 4.6 mmol/L Normal 3.5-5.1 [facility] ([place]) Comment on above: Performed By: #### G FR, A1C, CMP, TSH, VIDH, LIPID, ANEU, ADIFF, CBC #### [address] [address] Sodium [Moles/Vol] 135 mmol/L Low 136-145 [facility] ([place]) Comment on above: Performed By: #### G FR, A1C, CMP, TSH, VIDH, LIPID, ANEU, ADIFF, CBC #### [address] [address] Total Protein 7.8 G/dL Normal 6.4-8.2 [facility] ([place]) Comment on above: Performed By: #### G FR, A1C, CMP, TSH, VIDH, LIPID, ANEU, ADIFF, CBC #### [facility] [address], [place] [address] Urea nitrogen [Mass/Vol] 23 mg/dL High 7-18 [facility] ([place]) Comment on above: Performed By: #### G FR, A1C, CMP, TSH, VIDH, LIPID, ANEU, ADIFF, CBC #### [facility] [address], [place] [address] LABORATORYOrdered By: SYSTEM SYSTEM on 08-03-2023 25-hydroxyvitamin D3 [Mass/Vol] 49.8 ng/mL Invalid Interpretation Code AO ADM SS Comment on above: Interpretive Data: I nterpretive Values Based on Total 25(OH) Vitamin D: Deficient <20 ng/mL Insufficient 20 - <30 ng/mL Sufficient 30-100 ng/mL Albumin BCP dye [Mass/Vol] 3.9 G/dL Normal 3.4 - 4.8 G/dL AO ADM SS Albumin/Globulin [Mass ratio] 1.0 {ratio} Low 1.1 - 2.5 ratio AO ADM SS ALP [Catalytic activity/Vol] 94 U/L Normal 40 - 135 U/L AO ADM SS ALT With P-5'-P [Catalytic activity/Vol] 27 U/L Normal 14 - 59 U/L AO ADM SS AST With P-5'-P [Catalytic activity/Vol] 19 U/L Normal 10 - 40 U/L AO ADM SS Basophil, Absolute 0.1 103/mcL Normal 0.0 - 0.2 10^3/mcL AO Workflow SS Basophils/100 WBC (Bld) 1.5 % Normal 0.0 - 2.5 % AO Workflow SS Bilirubin [Mass/Vol] 0.5 mg/dL Normal 0.2 - 1 .0 mg/dL AO ADM SS Comment on above: Interpretive Data: U se of this assay is not recommended for patients undergoing treatment with eltrombopag due to the potential for falsely elevated results. Calcium [Mass/Vol] 9.3 mg/dL Normal 8.4 - 10. 2 mg/dL AO ADM SS Chloride [Moles/Vol] 99 mmol/L Normal 98 - 10 7 mmol/L AO ADM SS CO2 [Moles/Vol] 33 mmol/L High 23 - 31 mmol/L AO ADM SS Creatinine [Mass/Vol] 1.12 mg/dL High 0.55 - 1.02 mg/dL AO ADM SS Electrolyte Balance 3.0 mEq/L Low 4.0 - 15 .0 mEq/L AO ADM SS Eosinophil, Absolute 0.4 103/mcL Normal 0.0 - 0 .4 10^3/mcL AO Workflow SS Eosinophils/100 WBC (Bld) 4.9 % Normal 0.0 - 7.0 % AO Workflow SS Erythrocyte distribution width (RBC) [Ratio] 13.1 % Normal 11.5 - 14.5 % AO Workflow SS GFR/1.73 sq M.predicted among blacks MDRD (S/P/Bld) [Vol rate/Area] 58 ml/min/1.73sqm Invalid Interpretation Code AO Chemistry S Comment on above: Interpretive Data: GFR Population mean for , Non- Americans Ages 20-29 = 116 mL/min/1.73 sq.m. Ages 30-39 = 107 mL/min/1.73 sq.m. Ages 40-49 = 99 mL/min/1.73 sq.m. Ages 50-59 = 93 mL/min/1.73 sq.m. Ages 60-69 = 85 mL/min/1.73 sq.m. Ages 70+ = 75 mL/min/1.73 sq.m. Chronic Kidney Disease: Less than 60 mL/min/1.73 square meters End Stage Renal Disease: Less than 15 mL/min/1.73 square meters GFR/1.73 sq M.predicted among non-blacks MDRD (S/P/Bld) [Vol rate/Area] 48 ml/min/1.73sqm Invalid Interpretation Code AO Chemistry S Comment on above: Interpretive Data: GFR Population mean for , Non- Americans Ages 20-29 = 116 mL/min/1.73 sq.m. Ages 30-39 = 107 mL/min/1.73 sq.m. Ages 40-49 = 99 mL/min/1.73 sq.m. Ages 50-59 = 93 mL/min/1.73 sq.m. Ages 60-69 = 85 mL/min/1.73 sq.m. Ages 70+ = 75 mL/min/1.73 sq.m. Chronic Kidney Disease: Less than 60 mL/min/1.73 square meters End Stage Renal Disease: Less than 15 mL/min/1.73 square meters Globulin 3.9 G/dL Invalid Interpretation Code AO ADM SS Glucose [Mass/Vol] 100 mg/dL Normal 83 - 110 mg/dL AO ADM SS HbA1c (Bld) [Mass fraction] 6.1 % Normal 4.3 - 6.4 % AO ADM SS Hematocrit (Bld) [Volume fraction] 38.5 % Normal 37.0 - 47.0 % AO Workflow SS Hemoglobin (Bld) [Mass/Vol] 13.2 G/dL Normal 12.0 - 16.0 G/dL AO Workflow SS Lymphocyte, Absolute 1.6 103/mcL Normal 0.8 - 3 .9 10^3/mcL AO Workflow SS Lymphocytes/100 WBC (Bld) 22.3 % Normal 10.0 - 50.0 % AO Workflow SS MCH (RBC) [Entitic mass] 29.7 pg Normal 27.0 - 31.2 pg AO Workflow SS MCHC 34.3 G/dL Normal 33.0 - 37.0 G/dL AO Workflow SS MCV (RBC) [Entitic vol] 86.8 fL Normal 80.0 - 94.0 fL AO Workflow SS Monocyte, Absolute 0.8 103/mcL Normal 0.2 - 1.0 10^3/mcL AO Workflow SS Monocytes/100 WBC (Bld) 10.9 % Normal 1.7 - 13.0 % AO Workflow SS Neutrophil, Absolute 4.4 103/mcL Normal 2.9 - 6 .2 10^3/mcL AO Workflow SS Neutrophils/100 WBC (Bld) 60.4 % Normal 37.0 - 80.0 % AO Workflow SS Platelet mean volume (Bld) [Entitic vol] 8.5 fL Normal 7.4 - 10.4 fL AO Workflow SS Platelets (Bld) [#/Vol] 291 103/mcL Normal 130 - 400 10^3/mcL AO Workflow SS Potassium [Moles/Vol] 4.6 mmol/L Normal 3.5 - 5.1 mmol/L AO ADM SS Protein [Mass/Vol] 7.8 G/dL Normal 6.4 - 8.2 G/dL AO ADM SS RBC (Bld) [#/Vol] 4.44 106/mcL Normal 4.20 - 5.4 0 10^6/mcL AO Workflow SS Sodium [Moles/Vol] 135 mmol/L Low 136 - 145 mmol/L AO ADM SS TSH Qn 2.58 m[IU]/L Normal 0.36 - 3.74 mcIU/mL AO ADM SS Urea nitrogen [Mass/Vol] 23 mg/dL High 7 - 18 mg/dL AO ADM SS Urea nitrogen/Creatinine [Mass ratio] 21 ratio Normal 7 - 27 ratio AO ADM SS WBC (Bld) [#/Vol] 7.2 103/mcL Normal 4.6 - 10.8 10^3/mcL AO Workflow SS LABORATORYOrdered By: Zoë Laura on 08-03-2023 Cholesterol [Mass/Vol] 162 mg/dL Normal 0 - 200 mg/dL AO ADM SS Comment on above: Interpretive Data: C holesterol Reference Interval: Less than 200 Desirable 200-239 Borderline high risk 240 and above High risk Cholesterol in HDL [Mass/Vol] 49 mg/dL Normal 40 - 60 mg/dL AO ADM SS Cholesterol in LDL [Mass/Vol] 86 mg/dL Normal 0 - 130 mg/dL AO ADM SS Triglyceride [Mass/Vol] 136 mg/dL Normal 0 - 150 mg/dL AO ADM SS Comment on above: Interpretive Data: T riglyceride Reference Interval: Less than 150 Normal 150-199 Borderline high risk 200-499 High risk 500 or higher Very high risk LIPIDon 08-03-2023 Cholesterol [Mass/Vol] 162 mg/dL Normal 0-200 [facility] ([place]) Comment on above: Result Comment: Chol esterol Reference Interval: Less than 200 Desirable 200-239 Borderline high risk 240 and above High risk Performed By: #### G FR, A1C, CMP, TSH, VIDH, LIPID, ANEU, ADIFF, CBC #### [address] [address] Cholesterol in HDL [Mass/Vol] 49 mg/dL Normal 40-60 [facility] ([place]) Comment on above: Performed By: #### G FR, A1C, CMP, TSH, VIDH, LIPID, ANEU, ADIFF, CBC #### [address] [address] Cholesterol in LDL [Mass/Vol] 86 mg/dL Normal 0-130 [facility] ([place]) Comment on above: Performed By: #### G FR, A1C, CMP, TSH, VIDH, LIPID, ANEU, ADIFF, CBC #### [address] [address] Triglyceride [Mass/Vol] 136 mg/dL Normal 0-150 [facility] ([place]) Comment on above: Result Comment: Trig lyceride Reference Interval: Less than 150 Normal 150-199 Borderline high risk 200-499 High risk 500 or higher Very high risk Performed By: #### G FR, A1C, CMP, TSH, VIDH, LIPID, ANEU, ADIFF, CBC #### [address] [address] TSHon 08-03-2023 TSH Qn 2.58 m[IU]/L Normal 0.36-3.74 [facility] ([place]) Comment on above: Performed By: #### G FR, A1C, CMP, TSH, VIDH, LIPID, ANEU, ADIFF, CBC #### [place] [id number] VIDHon 08-03-2023 Vit. D 25-Hydroxy 49.8 ng/mL Normal [facility] ([place]) Comment on above: Result Comment: Inte rpretive Values Based on Total 25(OH) Vitamin D: Deficient <20 ng/mL Insufficient 20 - <30 ng/mL Sufficient 30-100 ng/mL Performed By: #### G FR, A1C, CMP, TSH, VIDH, LIPID, ANEU, ADIFF, CBC #### [address] [address] .Auto Diffon 01-21-2023 Basophil, Absolute 0.1 10 3/mcL Normal 0.0-0.2 [facility] ([place]) Comment on above: Performed By: #### G FR, A1C, CMP, TSH, VIDH, LIPID, ANEU, ADIFF, CBC #### [address] [address] Basophils/100 WBC (Bld) 2.0 % Normal 0.0-2.5 [facility] ([place]) Comment on above: Performed By: #### G FR, A1C, CMP, TSH, VIDH, LIPID, ANEU, ADIFF, CBC #### [address] [address] Eosinophil, Absolute 0.3 10 3/mcL Normal 0.0-0.4 [facility] ([place]) Comment on above: Performed By: #### G FR, A1C, CMP, TSH, VIDH, LIPID, ANEU, ADIFF, CBC #### [address] [address] Eosinophils/100 WBC (Bld) 4.5 % Normal 0.0-7.0 [facility] ([place]) Comment on above: Performed By: #### G FR, A1C, CMP, TSH, VIDH, LIPID, ANEU, ADIFF, CBC #### [address] [address] Lymphocyte, Absolute 1.2 10 3/mcL Normal 0.8-3.9 [facility] ([place]) Comment on above: Performed By: #### G FR, A1C, CMP, TSH, VIDH, LIPID, ANEU, ADIFF, CBC #### [address] [address] Lymphocytes/100 WBC (Bld) 19.0 % Normal 10.0-50.0 [facility] ([place]) Comment on above: Performed By: #### G FR, A1C, CMP, TSH, VIDH, LIPID, ANEU, ADIFF, CBC #### [address] [address] Monocyte, Absolute 0.8 10 3/mcL Normal 0.2-1.0 [facility] ([place]) Comment on above: Performed By: #### G FR, A1C, CMP, TSH, VIDH, LIPID, ANEU, ADIFF, CBC #### [address] [address] Monocytes/100 WBC (Bld) 12.4 % Normal 1.7-13.0 [facility] ([place]) Comment on above: Performed By: #### G FR, A1C, CMP, TSH, VIDH, LIPID, ANEU, ADIFF, CBC #### [address] [address] Neutrophils/100 WBC (Bld) 62.1 % Normal 37.0-80.0 [facility] ([place]) Comment on above: Performed By: #### G FR, A1C, CMP, TSH, VIDH, LIPID, ANEU, ADIFF, CBC #### [address] [address] .GFRon 01-21-2023 GFR 59 ml/min/1.73sqm Normal [facility] ([place]) Comment on above: Result Comment: GFR Population mean for , Non- Americans Ages 20-29 = 116 mL/min/1.73 sq.m. Ages 30-39 = 107 mL/min/1.73 sq.m. Ages 40-49 = 99 mL/min/1.73 sq.m. Ages 50-59 = 93 mL/min/1.73 sq.m. Ages 60-69 = 85 mL/min/1.73 sq.m. Ages 70+ = 75 mL/min/1.73 sq.m. Chronic Kidney Disease: Less than 60 mL/min/1.73 square meters End Stage Renal Disease: Less than 15 mL/min/1.73 square meters Performed By: #### G FR, A1C, CMP, TSH, VIDH, LIPID, ANEU, ADIFF, CBC #### [address] [address] GFR Non- 48 ml/min/1.73sqm Normal [facility] ([place]) Comment on above: Result Comment: GFR Population mean for , Non- Americans Ages 20-29 = 116 mL/min/1.73 sq.m. Ages 30-39 = 107 mL/min/1.73 sq.m. Ages 40-49 = 99 mL/min/1.73 sq.m. Ages 50-59 = 93 mL/min/1.73 sq.m. Ages 60-69 = 85 mL/min/1.73 sq.m. Ages 70+ = 75 mL/min/1.73 sq.m. Chronic Kidney Disease: Less than 60 mL/min/1.73 square meters End Stage Renal Disease: Less than 15 mL/min/1.73 square meters Performed By: #### G FR, A1C, CMP, TSH, VIDH, LIPID, ANEU, ADIFF, CBC #### [place] [address] .NEUABSon 01-21-2023 Neutrophil, Absolute 3.8 10 3/mcL Normal 2.9-6.2 [facility] ([place]) Comment on above: Performed By: #### G FR, A1C, CMP, TSH, VIDH, LIPID, ANEU, ADIFF, CBC #### [place] [address] A1Con 01-21-2023 HbA1c (Bld) [Mass fraction] 5.8 % Normal 4.3-6.4 [facility] ([place]) Comment on above: Performed By: #### G FR, A1C, CMP, TSH, VIDH, LIPID, ANEU, ADIFF, CBC #### [place] [address] CBCon 01-21-2023 Erythrocyte distribution width (RBC) [Ratio] 13.2 % Normal 11.5-14.5 [facility] ([place]) Comment on above: Performed By: #### G FR, A1C, CMP, TSH, VIDH, LIPID, ANEU, ADIFF, CBC #### [place] [address] Hematocrit (Bld) [Volume fraction] 37.6 % Normal 37.0-47.0 [facility] ([place]) Comment on above: Performed By: #### G FR, A1C, CMP, TSH, VIDH, LIPID, ANEU, ADIFF, CBC #### [place] [address] Hgb 12.8 G/dL Normal 12.0-16.0 [facility] ([place]) Comment on above: Performed By: #### G FR, A1C, CMP, TSH, VIDH, LIPID, ANEU, ADIFF, CBC #### [place] [address] MCH (RBC) [Entitic mass] 29.7 pg Normal 27.0-31.2 [facility] ([place]) Comment on above: Performed By: #### G FR, A1C, CMP, TSH, VIDH, LIPID, ANEU, ADIFF, CBC #### [address] [address] MCHC 34.2 G/dL Normal 33.0-37.0 [facility] ([place]) Comment on above: Performed By: #### G FR, A1C, CMP, TSH, VIDH, LIPID, ANEU, ADIFF, CBC #### [address] [address] MCV (RBC) [Entitic vol] 86.8 fL Normal 80.0-94.0 [facility] ([place]) Comment on above: Performed By: #### G FR, A1C, CMP, TSH, VIDH, LIPID, ANEU, ADIFF, CBC #### [place] [address] Platelet 287 10 3/mcL Normal 130-400 [facility] ([place]) Comment on above: Performed By: #### G FR, A1C, CMP, TSH, VIDH, LIPID, ANEU, ADIFF, CBC #### [address] [address] Platelet mean volume (Bld) [Entitic vol] 8.8 fL Normal 7.4-10.4 [facility] ([place]) Comment on above: Performed By: #### G FR, A1C, CMP, TSH, VIDH, LIPID, ANEU, ADIFF, CBC #### [place] [address] RBC 4.33 10 6/mcL Normal 4.20-5.40 [facility] ([place]) Comment on above: Performed By: #### G FR, A1C, CMP, TSH, VIDH, LIPID, ANEU, ADIFF, CBC #### [place] [id number] WBC 6.2 10 3/mcL Normal 4.6-10.8 [facility] ([place]) Comment on above: Performed By: #### G FR, A1C, CMP, TSH, VIDH, LIPID, ANEU, ADIFF, CBC #### [place] [address] CMPon 01-21-2023 Albumin Level 3.9 G/dL Normal 3.4-4.8 [facility] ([place]) Comment on above: Performed By: #### G FR, A1C, CMP, TSH, VIDH, LIPID, ANEU, ADIFF, CBC #### [address] [address] Albumin/Globulin [Mass ratio] 1.0 {ratio} Low 1.1-2.5 [facility] ([place]) Comment on above: Performed By: #### G FR, A1C, CMP, TSH, VIDH, LIPID, ANEU, ADIFF, CBC #### [address] [address] ALP [Catalytic activity/Vol] 82 U/L Normal 40-135 [facility] ([place]) Comment on above: Performed By: #### G FR, A1C, CMP, TSH, VIDH, LIPID, ANEU, ADIFF, CBC #### [address] [address] ALT [Catalytic activity/Vol] 31 U/L Normal 14-59 [facility] ([place]) Comment on above: Performed By: #### G FR, A1C, CMP, TSH, VIDH, LIPID, ANEU, ADIFF, CBC #### [address] [address] AST [Catalytic activity/Vol] 24 U/L Normal 10-40 [facility] ([place]) Comment on above: Performed By: #### G FR, A1C, CMP, TSH, VIDH, LIPID, ANEU, ADIFF, CBC #### [address] [address] Bili Total 0.7 mg/dL Normal 0.2-1.0 [facility] ([place]) Comment on above: Result Comment: Use of this assay is not recommended for patients undergoing treatment with eltrombopag due to the potential for falsely elevated results. Performed By: #### G FR, A1C, CMP, TSH, VIDH, LIPID, ANEU, ADIFF, CBC #### [place] [id number] BUN/Creatinine Ratio 18 ratio Normal 7-27 [facility] ([place]) Comment on above: Performed By: #### G FR, A1C, CMP, TSH, VIDH, LIPID, ANEU, ADIFF, CBC #### [address] [address] Calcium [Mass/Vol] 9.6 mg/dL Normal 8.4-10.2 [facility] ([place]) Comment on above: Performed By: #### G FR, A1C, CMP, TSH, VIDH, LIPID, ANEU, ADIFF, CBC #### [address] [address] Chloride [Moles/Vol] 98 mmol/L Normal 98-107 [facility] ([place]) Comment on above: Performed By: #### G FR, A1C, CMP, TSH, VIDH, LIPID, ANEU, ADIFF, CBC #### [address] [address] CO2 [Moles/Vol] 30 mmol/L Normal 23-31 [facility] ([place]) Comment on above: Performed By: #### G FR, A1C, CMP, TSH, VIDH, LIPID, ANEU, ADIFF, CBC #### [address] [address] Creatinine [Mass/Vol] 1.11 mg/dL High 0.55-1.02 [facility] ([place]) Comment on above: Performed By: #### G FR, A1C, CMP, TSH, VIDH, LIPID, ANEU, ADIFF, CBC #### [address] [address] Electrolyte Balance 7.0 mEq/L Normal 4.0-15.0 [facility] ([place]) Comment on above: Performed By: #### G FR, A1C, CMP, TSH, VIDH, LIPID, ANEU, ADIFF, CBC #### [address] [address] Globulin 4.1 G/dL Normal [facility] ([place]) Comment on above: Performed By: #### G FR, A1C, CMP, TSH, VIDH, LIPID, ANEU, ADIFF, CBC #### [address] [address] Glucose [Mass/Vol] 104 mg/dL Normal 83-110 [facility] ([place]) Comment on above: Performed By: #### G FR, A1C, CMP, TSH, VIDH, LIPID, ANEU, ADIFF, CBC #### [address] [address] Potassium [Moles/Vol] 4.1 mmol/L Normal 3.5-5.1 [facility] ([place]) Comment on above: Performed By: #### G FR, A1C, CMP, TSH, VIDH, LIPID, ANEU, ADIFF, CBC #### [address] [address] Sodium [Moles/Vol] 135 mmol/L Low 136-145 [facility] ([place]) Comment on above: Performed By: #### G FR, A1C, CMP, TSH, VIDH, LIPID, ANEU, ADIFF, CBC #### [address] [address] Total Protein 8.0 G/dL Normal 6.4-8.2 [facility] ([place]) Comment on above: Performed By: #### G FR, A1C, CMP, TSH, VIDH, LIPID, ANEU, ADIFF, CBC #### [address] [address] Urea nitrogen [Mass/Vol] 20 mg/dL High 7-18 [facility] ([place]) Comment on above: Performed By: #### G FR, A1C, CMP, TSH, VIDH, LIPID, ANEU, ADIFF, CBC #### [address] [address] LABORATORYOrdered By: SYSTEM SYSTEM on 01-21-2023 25-hydroxyvitamin D3 [Mass/Vol] 62.7 ng/mL Invalid Interpretation Code AO ADM SS Comment on above: Interpretive Data: I nterpretive Values Based on Total 25(OH) Vitamin D: Deficient <20 ng/mL Insufficient 20 - <30 ng/mL Sufficient 30-100 ng/mL Albumin BCP dye [Mass/Vol] 3.9 G/dL Invalid Interpretation Code 3.4 - 4.8 G/dL AO ADM SS Albumin/Globulin [Mass ratio] 1.0 {ratio} Invalid Interpretation Code 1.1 - 2.5 ratio AO ADM SS ALP [Catalytic activity/Vol] 82 U/L Invalid Interpretation Code 40 - 135 U/L AO ADM SS ALT With P-5'-P [Catalytic activity/Vol] 31 U/L Invalid Interpretation Code 14 - 59 U/L AO ADM SS AST With P-5'-P [Catalytic activity/Vol] 24 U/L Invalid Interpretation Code 10 - 40 U/L AO ADM SS Basophil, Absolute 0.1 103/mcL Invalid Interpretation Code 0.0 - 0.2 10^3/mcL AO Workflow SS Basophils/100 WBC (Bld) 2.0 % Invalid Interpretation Code 0.0 - 2.5 % AO Workflow SS Bilirubin [Mass/Vol] 0.7 mg/dL Invalid Interpretation Code 0.2 - 1.0 mg/dL AO ADM SS Comment on above: Interpretive Data: U se of this assay is not recommended for patients undergoing treatment with eltrombopag due to the potential for falsely elevated results. Calcium [Mass/Vol] 9.6 mg/dL Invalid Interpretation Code 8.4 - 10.2 mg/dL AO ADM SS Chloride [Moles/Vol] 98 mmol/L Invalid Interpretation Code 98 - 107 mmol/L AO ADM SS CO2 [Moles/Vol] 30 mmol/L Invalid Interpretation Code 23 - 31 mmol/L AO ADM SS Creatinine [Mass/Vol] 1.11 mg/dL Invalid Interpretation Code 0.55 - 1.02 mg/dL AO ADM SS Electrolyte Balance 7.0 mEq/L Invalid Interpretation Code 4.0 - 15.0 mEq/L AO ADM SS Eosinophil, Absolute 0.3 103/mcL Invalid Interpretation Code 0.0 - 0.4 10^3/mcL AO Workflow SS Eosinophils/100 WBC (Bld) 4.5 % Invalid Interpretation Code 0.0 - 7.0 % AO Workflow SS Erythrocyte distribution width (RBC) [Ratio] 13.2 % Invalid Interpretation Code 11.5 - 14.5 % AO Workflow SS GFR/1.73 sq M.predicted among blacks MDRD (S/P/Bld) [Vol rate/Area] 59 ml/min/1.73sqm Invalid Interpretation Code AO Chemistry S Comment on above: Interpretive Data: GFR Population mean for , Non- Americans Ages 20-29 = 116 mL/min/1.73 sq.m. Ages 30-39 = 107 mL/min/1.73 sq.m. Ages 40-49 = 99 mL/min/1.73 sq.m. Ages 50-59 = 93 mL/min/1.73 sq.m. Ages 60-69 = 85 mL/min/1.73 sq.m. Ages 70+ = 75 mL/min/1.73 sq.m. Chronic Kidney Disease: Less than 60 mL/min/1.73 square meters End Stage Renal Disease: Less than 15 mL/min/1.73 square meters GFR/1.73 sq M.predicted among non-blacks MDRD (S/P/Bld) [Vol rate/Area] 48 ml/min/1.73sqm Invalid Interpretation Code AO Chemistry S Comment on above: Interpretive Data: GFR Population mean for , Non- Americans Ages 20-29 = 116 mL/min/1.73 sq.m. Ages 30-39 = 107 mL/min/1.73 sq.m. Ages 40-49 = 99 mL/min/1.73 sq.m. Ages 50-59 = 93 mL/min/1.73 sq.m. Ages 60-69 = 85 mL/min/1.73 sq.m. Ages 70+ = 75 mL/min/1.73 sq.m. Chronic Kidney Disease: Less than 60 mL/min/1.73 square meters End Stage Renal Disease: Less than 15 mL/min/1.73 square meters Globulin 4.1 G/dL Invalid Interpretation Code AO ADM SS Glucose [Mass/Vol] 104 mg/dL Invalid Interpretation Code 83 - 110 mg/dL AO ADM SS HbA1c (Bld) [Mass fraction] 5.8 % Invalid Interpretation Code 4.3 - 6.4 % AO ADM SS Hematocrit (Bld) [Volume fraction] 37.6 % Invalid Interpretation Code 37.0 - 47.0 % AO Workflow SS Hemoglobin (Bld) [Mass/Vol] 12.8 G/dL Invalid Interpretation Code 12.0 - 16.0 G/dL AO Workflow SS Lymphocyte, Absolute 1.2 103/mcL Invalid Interpretation Code 0.8 - 3.9 10^3/mcL AO Workflow SS Lymphocytes/100 WBC (Bld) 19.0 % Invalid Interpretation Code 10.0 - 50.0 % AO Workflow SS MCH (RBC) [Entitic mass] 29.7 pg Invalid Interpretation Code 27.0 - 31.2 pg AO Workflow SS MCHC 34.2 G/dL Invalid Interpretation Code 33.0 - 37.0 G/dL AO Workflow SS MCV (RBC) [Entitic vol] 86.8 fL Invalid Interpretation Code 80.0 - 94.0 fL AO Workflow SS Monocyte, Absolute 0.8 103/mcL Invalid Interpretation Code 0.2 - 1.0 10^3/mcL AO Workflow SS Monocytes/100 WBC (Bld) 12.4 % Invalid Interpretation Code 1.7 - 13.0 % AO Workflow SS Neutrophil, Absolute 3.8 103/mcL Invalid Interpretation Code 2.9 - 6.2 10^3/mcL AO Workflow SS Neutrophils/100 WBC (Bld) 62.1 % Invalid Interpretation Code 37.0 - 80.0 % AO Workflow SS Platelet mean volume (Bld) [Entitic vol] 8.8 fL Invalid Interpretation Code 7.4 - 10.4 fL AO Workflow SS Platelets (Bld) [#/Vol] 287 103/mcL Invalid Interpretation Code 130 - 400 10^3/mcL AO Workflow SS Potassium [Moles/Vol] 4.1 mmol/L Invalid Interpretation Code 3.5 - 5.1 mmol/L AO ADM SS Protein [Mass/Vol] 8.0 G/dL Invalid Interpretation Code 6.4 - 8.2 G/dL AO ADM SS RBC (Bld) [#/Vol] 4.33 106/mcL Invalid Interpretation Code 4.20 - 5.40 10^6/mcL AO Workflow SS Sodium [Moles/Vol] 135 mmol/L Invalid Interpretation Code 136 - 145 mmol/L AO ADM SS TSH Qn 1.80 m[IU]/L Invalid Interpretation Code 0.36 - 3.74 mcIU/mL AO ADM SS Urea nitrogen [Mass/Vol] 20 mg/dL Invalid Interpretation Code 7 - 18 mg/dL AO ADM SS Urea nitrogen/Creatinine [Mass ratio] 18 ratio Invalid Interpretation Code 7 - 27 ratio AO ADM SS WBC (Bld) [#/Vol] 6.2 103/mcL Invalid Interpretation Code 4.6 - 10.8 10^3/mcL AO Workflow SS LABORATORYOrdered By: Sonia Sanchez on 01-21-2023 Cholesterol [Mass/Vol] 144 mg/dL Invalid Interpretation Code 0 - 200 mg/dL AO ADM SS Comment on above: Interpretive Data: C holesterol Reference Interval: Less than 200 Desirable 200-239 Borderline high risk 240 and above High risk Cholesterol in HDL [Mass/Vol] 47 mg/dL Invalid Interpretation Code 40 - 60 mg/dL AO ADM SS Cholesterol in LDL [Mass/Vol] 74 mg/dL Invalid Interpretation Code 0 - 130 mg/dL AO ADM SS Triglyceride [Mass/Vol] 113 mg/dL Invalid Interpretation Code 0 - 150 mg/dL AO ADM SS Comment on above: Interpretive Data: T riglyceride Reference Interval: Less than 150 Normal 150-199 Borderline high risk 200-499 High risk 500 or higher Very high risk LIPIDon 01-21-2023 Cholesterol [Mass/Vol] 144 mg/dL Normal 0-200 [facility] ([place]) Comment on above: Result Comment: Chol esterol Reference Interval: Less than 200 Desirable 200-239 Borderline high risk 240 and above High risk Performed By: #### G FR, A1C, CMP, TSH, VIDH, LIPID, ANEU, ADIFF, CBC #### [address] [address] Cholesterol in HDL [Mass/Vol] 47 mg/dL Normal 40-60 [facility] ([place]) Comment on above: Performed By: #### G FR, A1C, CMP, TSH, VIDH, LIPID, ANEU, ADIFF, CBC #### [address] [address] Cholesterol in LDL [Mass/Vol] 74 mg/dL Normal 0-130 [facility] ([place]) Comment on above: Performed By: #### G FR, A1C, CMP, TSH, VIDH, LIPID, ANEU, ADIFF, CBC #### [address] [address] Triglyceride [Mass/Vol] 113 mg/dL Normal 0-150 [facility] ([place]) Comment on above: Result Comment: Trig lyceride Reference Interval: Less than 150 Normal 150-199 Borderline high risk 200-499 High risk 500 or higher Very high risk Performed By: #### G FR, A1C, CMP, TSH, VIDH, LIPID, ANEU, ADIFF, CBC #### [address] [address] TSHon 01-21-2023 TSH Qn 1.80 m[IU]/L Normal 0.36-3.74 [facility] ([place]) Comment on above: Performed By: #### G FR, A1C, CMP, TSH, VIDH, LIPID, ANEU, ADIFF, CBC #### [id number] [place], [place] [address] VIDHon 01-21-2023 Vit. D 25-Hydroxy 62.7 ng/mL Normal [facility] ([place]) Comment on above: Result Comment: Inte rpretive Values Based on Total 25(OH) Vitamin D: Deficient <20 ng/mL Insufficient 20 - <30 ng/mL Sufficient 30-100 ng/mL Performed By: #### G FR, A1C, CMP, TSH, VIDH, LIPID, ANEU, ADIFF, CBC #### [address] [address] XR FOOT MINIMUM 3 VIEWS RIG Ton 12-27-2022 XR FOOT MINIMUM 3 VIEWS RIGHT ORIGINAL EXAMINATION: THREE XRAY VIEWS OF THE RIGHT FOOT12/24/2022 2:17 pm FOOT 3 VIEWS RIGHT COMPARISON: None HISTORY: ORDERING SYSTEM PROVIDED HISTORY: Reason for Exam: heel pain x weeks FINDINGS: No acute fracture or dislocation is identified. Mild spurring seen at the 1st metatarsophalangeal joint. Calcaneal enthesopathy noted. Spurs seen of the talonavicular joint. There is no radiopaque foreign body. IMPRESSION: No acute fracture or dislocation. Degenerative changes Interpreted by: Cassius Guidry MD Preliminary Report By: Cassius Guidry MD Electronically signed By Cassius Guidry MD Dictated Date: 12/27/2022 1:19:27 PM Prelim Date: 12/27/2022 1:20:19 PM Sign Date: 12/27/2022 1:20:19 PM Ordering Provider: SH[facility] ([place]) Basophil percentageOrdered B y: Martin Hooper on 10-27-2022 Creatinine [Mass/Vol] 0.9 mg/dL 0.55-1.02 [facility] No Panel InformationOrdered By: Martin Hooper on 10-27-2022 Bedside Estimated GFR (eGFR) > 60.0000 mL/min >60 [facility] LABORATORYOrdered By: SYSTEM SYSTEM on 07-30-2022 Albumin BCP dye [Mass/Vol] 3.9 G/dL Invalid Interpretation Code 3.4 - 4.8 G/dL AO ADM SS Albumin/Globulin [Mass ratio] 1.0 {ratio} Invalid Interpretation Code 1.1 - 2.5 ratio AO ADM SS ALP [Catalytic activity/Vol] 97 U/L Invalid Interpretation Code 40 - 135 U/L AO ADM SS ALT With P-5'-P [Catalytic activity/Vol] 22 U/L Invalid Interpretation Code 14 - 59 U/L AO ADM SS AST With P-5'-P [Catalytic activity/Vol] 22 U/L Invalid Interpretation Code 10 - 40 U/L AO ADM SS Bilirubin [Mass/Vol] 0.7 mg/dL Invalid Interpretation Code 0.2 - 1.0 mg/dL AO ADM SS Calcium [Mass/Vol] 10.0 mg/dL Invalid Interpretation Code 8.4 - 10.2 mg/dL AO ADM SS Chloride [Moles/Vol] 101 mmol/L Invalid Interpretation Code 98 - 107 mmol/L AO ADM SS CO2 [Moles/Vol] 34 mmol/L Invalid Interpretation Code 23 - 31 mmol/L AO ADM SS Creatinine [Mass/Vol] 1.10 mg/dL Invalid Interpretation Code 0.55 - 1.02 mg/dL AO ADM SS Electrolyte Balance 5.0 mEq/L Invalid Interpretation Code 4.0 - 15.0 mEq/L AO ADM SS GFR 59 ml/min/1.73sqm Invalid Interpretation Code AO Chemistry S GFR Non- 49 ml/min/1.73sqm Invalid Interpretation Code AO Chemistry S Globulin 4.1 G/dL Invalid Interpretation Code AO ADM SS Glucose [Mass/Vol] 96 mg/dL Invalid Interpretation Code 83 - 110 mg/dL AO ADM SS HbA1c (Bld) [Mass fraction] 5.9 % Invalid Interpretation Code 4.3 - 6.4 % AO ADM SS Potassium [Moles/Vol] 4.3 mmol/L Invalid Interpretation Code 3.5 - 5.1 mmol/L AO ADM SS Protein [Mass/Vol] 8.0 G/dL Invalid Interpretation Code 6.4 - 8.2 G/dL AO ADM SS Sodium [Moles/Vol] 140 mmol/L Invalid Interpretation Code 136 - 145 mmol/L AO ADM SS TSH Qn 3.31 m[IU]/L Invalid Interpretation Code 0.36 - 3.74 mcIU/mL AO ADM SS Urea nitrogen [Mass/Vol] 23 mg/dL Invalid Interpretation Code 7 - 18 mg/dL AO ADM SS Urea nitrogen/Creatinine [Mass ratio] 21 ratio Invalid Interpretation Code 7 - 27 ratio AO ADM SS LABORATORYOrdered By: Zoë Laura on 07-30-2022 Basophil, Absolute 0.1 103/mcL Invalid Interpretation Code 0.0 - 0.2 10^3/mcL AO Workflow SS Basophils/100 WBC (Bld) 1.4 % Invalid Interpretation Code 0.0 - 2.5 % AO Workflow SS Cholesterol [Mass/Vol] 152 mg/dL Invalid Interpretation Code 0 - 200 mg/dL AO ADM SS Cholesterol in HDL [Mass/Vol] 51 mg/dL Invalid Interpretation Code 40 - 60 mg/dL AO ADM SS Cholesterol in LDL [Mass/Vol] 82 mg/dL Invalid Interpretation Code 0 - 130 mg/dL AO ADM SS Eosinophil, Absolute 0.3 103/mcL Invalid Interpretation Code 0.0 - 0.4 10^3/mcL AO Workflow SS Eosinophils/100 WBC (Bld) 4.2 % Invalid Interpretation Code 0.0 - 7.0 % AO Workflow SS Erythrocyte distribution width (RBC) [Ratio] 13.0 % Invalid Interpretation Code 11.5 - 14.5 % AO Workflow SS Hematocrit (Bld) [Volume fraction] 39.7 % Invalid Interpretation Code 37.0 - 47.0 % AO Workflow SS Hemoglobin (Bld) [Mass/Vol] 13.2 G/dL Invalid Interpretation Code 12.0 - 16.0 G/dL AO Workflow SS Lymphocyte, Absolute 1.8 103/mcL Invalid Interpretation Code 0.8 - 3.9 10^3/mcL AO Workflow SS Lymphocytes/100 WBC (Bld) 24.8 % Invalid Interpretation Code 10.0 - 50.0 % AO Workflow SS MCH (RBC) [Entitic mass] 29.1 pg Invalid Interpretation Code 27.0 - 31.2 pg AO Workflow SS MCHC 33.3 G/dL Invalid Interpretation Code 33.0 - 37.0 G/dL AO Workflow SS MCV (RBC) [Entitic vol] 87.5 fL Invalid Interpretation Code 80.0 - 94.0 fL AO Workflow SS Monocyte, Absolute 0.7 103/mcL Invalid Interpretation Code 0.2 - 1.0 10^3/mcL AO Workflow SS Monocytes/100 WBC (Bld) 9.8 % Invalid Interpretation Code 1.7 - 13.0 % AO Workflow SS Neutrophil, Absolute 4.3 103/mcL Invalid Interpretation Code 2.9 - 6.2 10^3/mcL AO Workflow SS Neutrophils/100 WBC (Bld) 59.8 % Invalid Interpretation Code 37.0 - 80.0 % AO Workflow SS Platelet mean volume (Bld) [Entitic vol] 9.1 fL Invalid Interpretation Code 7.4 - 10.4 fL AO Workflow SS Platelets (Bld) [#/Vol] 285 103/mcL Invalid Interpretation Code 130 - 400 10^3/mcL AO Workflow SS RBC (Bld) [#/Vol] 4.53 106/mcL Invalid Interpretation Code 4.20 - 5.40 10^6/mcL AO Workflow SS Triglyceride [Mass/Vol] 96 mg/dL Invalid Interpretation Code 0 - 150 mg/dL AO ADM SS WBC (Bld) [#/Vol] 7.3 103/mcL Invalid Interpretation Code 4.6 - 10.8 10^3/mcL AO Workflow SS Bacteria Wnd Culton 01-20-20 22 Bacteria identified Cx Nom (Wound) CULTURE, WOUND: No growth 3 days GRAM STAIN: No Polymorphonuclear Leukocytes No organisms seen Normal [facility] Comment on above: Performed By: #### [id number] #### [facility] CLIA [id number] [address] [place] [facility] CNOVon 01-19-2022 CNOV Office Visit ([facility] ) LASHANDA FREEMAN ([id number]) 1950 F Date Time Provider Department 01/19/22 3:15 PM HAYLIE WOLFE [facility] During your visit today, we recorded the following information about you: Temperature Pulse Respiration Blood pressure 97.5 degrees 60/minute 18/minute 157/86 Weight 98.9 kg Katey JoeWALTER 01/19/2022 8:19 PM Signed Dressing applied to right 5th finger per order, tolerated well. Katey Joe VESSEL OPERATOR Haylie Wolfe, DO 01/19/2022 8:19 PM Signed Lashanda Freeman is a 71 year old FEMALE who presents with Dog Bite (Right hand 4 days ago 4th and 5th finger ) HPI History reviewed. No pertinent past medical history. There is no problem list on file for this patient. Current Outpatient Medications Medication Sig Dispense Refill amLODIPine (NORVASC) 5 mg tablet losartan-hydroCHLOROth iazide (HYZAAR) 100-25 mg per tablet propranolol ER (INDERAL [place]) 60 mg 24 hr capsule simvastatin (ZOCOR) 40 mg tablet amoxicillin-clavulanic acid (AUGMENTIN) 875-125 mg per tablet Take 1 tablet by mouth twice daily for 10 days. 20 tablet 0 No current facility-administered medications for this visit. Alcohol Use: Not on file Tobacco Use: Not on file History reviewed. No pertinent family history. Review of Systems Skin: Multiple punctures and lacerations are noted on the right hand digits #5 and 4 are particularly affected there is a laceration on #5 that is approximately 1-1/2 cm and its at the DIP joint. It has spread apart about 3 to 4 mm. There is some fat pad showing in this is got potential to be a real source for infection. She is got a lot of bruising on that finger and some swelling with some redness. She got some redness on finger #4 as well with multiple smaller lacerations and punctures. She has redness just on the dorsum of the hand just about retirement down from the MP joints. All other systems reviewed and are negative. BP 157/86 Pulse 60 Temp 97.5 Resp 18 Wt 218 lb (98.9kg) SpO2 97% Physical Exam Vitals and nursing note reviewed. Constitutional: Appearance: Normal appearance. Cardiovascular: Rate and Rhythm: Normal rate and regular rhythm. Pulses: Normal pulses. Heart sounds: Normal heart sounds. Pulmonary: Effort: Pulmonary effort is normal. Breath sounds: Normal breath sounds. Musculoskeletal: General: Normal range of motion. Skin: Findings: Bruising and erythema present. Comments: Examination of the right hand pulses are +2/4 capillary refill less than 3 seconds normal motor neurovascular and sensory to the digits. She has significant bruising redness and swelling of her fifth digit with a laceration that is open by about 4 mm and is about 1 and half centimeters long at the palmar aspect of the DIP. Patient has redness and swelling also of the fourth finger but not as bad there are multiple areas of punctures and wounds but nothing quite as bad is on that fifth digit. She has decreased range of motion of the fifth and fourth digit Neurological: Mental Status: She is alert. The wound was properly cleansed and dressed with bacitracin and a Band-Aid and I explained to the patient that this is going to have to heal by secondary intention moisture is her enemy she is to wash it twice daily and then pat it dry thoroughly with a paper towel and apply triple antibiotic ointment and a Band-Aid the patient is to take her medications which will include an antibiotic and that would be Augmentin. She is to watch for any redness swelling drainage discharge increasing pain or fever if any of that happens she is to seek help immediately. The patient was advised that this is a real source for infection and she needs to watch very closely. She is also advised to use Epsom salt soaks 20 minutes twice a day. She was up-to-date on her tetanus and so that was unnecessary. ASSESSMENT/PLAN: 1. Dog bite, initial encounter - ICD9: 879.8, E906.0, ICD10: W54.0XXA - WOUND DRESSING CHANGE - WOUND CULTURE AND GRAM STAIN Haylie Wolfe Referring Provider: SELF [200] Allergies As of Date: 01/19/2022 (No Known Allergies) Date Reviewed: 01/19/2022 Reviewed by: Haylie Wolfe, DO - Fully Assessed Reason for Visit: Dog Bite [82151] Cmt: Right hand 4 days ago 4th and 5th finger Primary Visit Diagnosis:Dog bite, initial encounter [W54.0XXA] Order(s):WOUND DRESSING CHANGE [[id number]] Order #: [id number]: 1 amoxicillin-clavulanic acid (AUGMENTIN) 875-125 mg per tabletTake 1 tablet by mouth twice daily for 10 days.Disp: 20 tabletRfl: 0 WOUND CULTURE AND GRAM STAIN [SQWCUL] Order #: [id number]. #:[id number] Prescriptions as of 01/19/2022 - amLODIPine (NORVASC) 5 mg tablet - losartan-hydroCHLOROth iazide (HYZAAR) 100-25 mg per tablet - propranolol ER (INDERAL [place]) 60 mg 24 hr capsule - simvastatin (ZOCOR) 40 mg tablet - amoxicillin-clavulanic (more content not included)... Normal [facility] LABORATORYOrdered By: Lenora Mujica on 08-07-2021 Albumin Level 4.1 G/dL Invalid Interpretation Code 3.4 - 4.8 G/dL AO Chemistry S Albumin/Globulin [Mass ratio] 1.0 {ratio} Invalid Interpretation Code 1.1 - 2.5 ratio AO Chemistry S Alk Phos 101 1 Invalid Interpretation Code 40 - 135 U/L AO Chemistry S ALT [Catalytic activity/Vol] 26 U/L Invalid Interpretation Code 14 - 59 U/L AO Chemistry S AST [Catalytic activity/Vol] 24 U/L Invalid Interpretation Code 10 - 40 U/L AO Chemistry S Bili Total 0.6 mg/dL Invalid Interpretation Code 0.2 - 1.0 mg/dL AO Chemistry S BUN/Creatinine Ratio 20 ratio Invalid Interpretation Code 7 - 27 ratio AO Chemistry S Calcium [Mass/Vol] 10.1 mg/dL Invalid Interpretation Code 8.4 - 10.2 mg/dL AO Chemistry S Chloride [Moles/Vol] 97 mmol/L Invalid Interpretation Code 98 - 107 mmol/L AO Chemistry S Cholesterol [Mass/Vol] 145 mg/dL Invalid Interpretation Code 0 - 200 mg/dL AO Chemistry S Cholesterol in HDL [Mass/Vol] 51 mg/dL Invalid Interpretation Code 40 - 60 mg/dL AO Chemistry S Cholesterol in LDL [Mass/Vol] 78 mg/dL Invalid Interpretation Code 0 - 130 mg/dL AO Chemistry S CO2 [Moles/Vol] 27 mmol/L Invalid Interpretation Code 23 - 31 mmol/L AO Chemistry S Creatinine [Mass/Vol] 1.01 mg/dL Invalid Interpretation Code 0.55 - 1.02 mg/dL AO Chemistry S Electrolyte Balance 13.0 mEq/L Invalid Interpretation Code 4.0 - 15.0 mEq/L AO Chemistry S Globulin 4.2 G/dL Invalid Interpretation Code AO Chemistry S Glucose [Mass/Vol] 103 mg/dL Invalid Interpretation Code 83 - 110 mg/dL AO Chemistry S Potassium [Moles/Vol] 4.3 mmol/L Invalid Interpretation Code 3.5 - 5.1 mmol/L AO Chemistry S Sodium [Moles/Vol] 137 mmol/L Invalid Interpretation Code 136 - 145 mmol/L AO Chemistry S Total Protein 8.3 G/dL Invalid Interpretation Code 6.4 - 8.2 G/dL AO Chemistry S Triglyceride [Mass/Vol] 81 mg/dL Invalid Interpretation Code 0 - 150 mg/dL AO Chemistry S TSH Qn 2.11 m[IU]/L Invalid Interpretation Code 0.36 - 3.74 mcIU/mL AO Chemistry S Urea nitrogen [Mass/Vol] 20 mg/dL Invalid Interpretation Code 7 - 18 mg/dL AO Chemistry S LABORATORYOrdered By: Zoë Laura on 08-07-2021 Basophil, Absolute 0.10 103/mcL Invalid Interpretation Code 0.00 - 0.19 10^3/mcL AO Auto Heme SS Basophils/100 WBC (Bld) 1.2 % Invalid Interpretation Code 0.0 - 2.5 % AO Auto Heme SS Eosinophil, Absolute 0.50 103/mcL Invalid Interpretation Code 0.00 - 0.40 10^3/mcL AO Auto Heme SS Eosinophils/100 WBC (Bld) 7.1 % Invalid Interpretation Code 0.0 - 7.0 % AO Auto Heme SS Erythrocyte distribution width (RBC) [Ratio] 13.3 % Invalid Interpretation Code 11.5 - 14.5 % AO Auto Heme SS Hematocrit (Bld) [Volume fraction] 38.6 % Invalid Interpretation Code 37.0 - 47.0 % AO Auto Heme SS Hemoglobin (Bld) [Mass/Vol] 13.2 G/dL Invalid Interpretation Code 12.0 - 16.0 G/dL AO Auto Heme SS Lymphocyte, Absolute 1.30 103/mcL Invalid Interpretation Code 0.77 - 3.85 10^3/mcL AO Auto Heme SS Lymphocytes/100 WBC (Bld) 19.9 % Invalid Interpretation Code 10.0 - 50.0 % AO Auto Heme SS MCH (RBC) [Entitic mass] 29.5 pg Invalid Interpretation Code 27.0 - 31.2 pg AO Auto Heme SS MCHC (RBC) [Mass/Vol] 34.2 G/dL Invalid Interpretation Code 33.0 - 37.0 G/dL AO Auto Heme SS MCV (RBC) [Entitic vol] 86.4 fL Invalid Interpretation Code 80.0 - 94.0 fL AO Auto Heme SS Monocyte, Absolute 0.80 103/mcL Invalid Interpretation Code 0.15 - 1.00 10^3/mcL AO Auto Heme SS Monocytes/100 WBC (Bld) 12.6 % Invalid Interpretation Code 1.7 - 13.0 % AO Auto Heme SS Neutrophil, Absolute 3.90 103/mcL Invalid Interpretation Code 2.85 - 6.16 10^3/mcL AO Auto Heme SS Neutrophils/100 WBC (Bld) 59.2 % Invalid Interpretation Code 37.0 - 80.0 % AO Auto Heme SS Platelet mean volume (Bld) [Entitic vol] 8.8 fL Invalid Interpretation Code 7.4 - 10.4 fL AO Auto Heme SS Platelets (Bld) [#/Vol] 284 103/mcL Invalid Interpretation Code 130 - 400 10^3/mcL AO Auto Heme SS RBC (Bld) [#/Vol] 4.46 106/mcL Invalid Interpretation Code 4.20 - 5.40 10^6/mcL AO Auto Heme SS WBC (Bld) [#/Vol] 6.60 103/mcL Invalid Interpretation Code 4.60 - 10.80 10^3/mcL AO Auto Heme SS LABORATORYOrdered By: SYSTEM SYSTEM on 08-07-2021 GFR 65 ml/min/1.73sqm Invalid Interpretation Code AO Chemistry S GFR Non- 54 ml/min/1.73sqm Invalid Interpretation Code AO Chemistry S Vital Signs Date Time Vital Sign Value Performing Clinician Facility 01-22-2025 10:10-0400 Body height 175 cm Hernandez Olmedo MD Work Phone: [facility] [employer] [facility] 01-22-2025 10:10-0400 Body height 175.26 cm Hernandez Olmedo MD Work Phone: [facility] [employer] [facility] 01-22-2025 10:10-0400 Body mass index (BMI) [Ratio] 33.64 kg/m2 Hernandez Olmedo MD Work Phone: [facility] [employer] [facility] 01-22-2025 10:10-0400 Body weight 103 kg Hernandez Olmedo MD Work Phone: [facility] [employer] [facility] 01-22-2025 10:10-0400 Body weight 102.97 kg Hernandez Olmedo MD Work Phone: [facility] 01-22-2025 10:10-0400 BP SITE #1 Hernandez Olmedo MD Work Phone: [facility] [employer] [facility] 01-22-2025 10:10-0400 BP SITE #2 Hernandez Olmedo MD Work Phone: [facility] [employer] [facility] 01-22-2025 10:10-0400 Diastolic blood pressure 77 mm[Hg] Hernandez Olmedo MD Work Phone: [facility] [employer] [facility] 01-22-2025 10:10-0400 Diastolic blood pressure 82 mm[Hg] Hernandez Olmedo MD Work Phone: [facility] [employer] [facility] 01-22-2025 10:10-0400 Heart rate 56 /min Hernandez Olmedo MD Work Phone: [facility] [employer] [facility] 01-22-2025 10:10-0400 HGHTCHNVIS Hernandez Olmedo MD Work Phone: [facility] 01-22-2025 10:10-0400 Systolic blood pressure 148 mm[Hg] Hernandez Olmedo MD Work Phone: [facility] 01-22-2025 10:10-0400 Systolic blood pressure 158 mm[Hg] Hernandez Olmedo MD Work Phone: [facility] 01-22-2025 10:10-0400 VITALSDONE Hernandez Olmedo MD Work Phone: [facility] 01-08-2025 08:51-0400 Body mass index (BMI) [Ratio] 32.1 kg/m2 Dr. Sher Tom DO Work Phone: [facility] 01-08-2025 08:51-0400 Body temperature 97.3 [degF] Dr. Sher Tom DO Work Phone: [facility] 01-08-2025 08:51-0400 Body weight 101.[address] Sher Tom DO Work Phone: [facility] 01-08-2025 08:51-0400 Diastolic blood pressure 72 mm[Hg] Dr. Sher Tom DO Work Phone: [facility] 01-08-2025 08:51-0400 Heart rate 63 /min Dr. Sher Tom DO Work Phone: [facility] 01-08-2025 08:51-0400 Respiratory rate 20 /min Dr. Sher Tom DO Work Phone: [facility] 01-08-2025 08:51-0400 SaO2% (BldA) [Mass fraction] 93 % Dr. Sher Tom DO Work Phone: [facility] 01-08-2025 08:51-0400 Systolic blood pressure 133 mm[Hg] Dr. Sher Tom DO Work Phone: [facility] 01-01-2025 09:10-0400 Body height 177 cm Hernandez Olmedo MD Work Phone: [facility] 01-01-2025 09:10-0400 Body height 176.53 cm Hernandez Olmedo MD Work Phone: [facility] 01-01-2025 09:10-0400 Body mass index (BMI) [Ratio] 33.16 kg/m2 Hernandez Olmedo MD Work Phone: [facility] 01-01-2025 09:10-0400 Body weight 103 kg Hernandez Olmedo MD Work Phone: [facility] 01-01-2025 09:10-0400 Body weight 102.97 kg Hernandez Olmedo MD Work Phone: [facility] 01-01-2025 09:10-0400 BP SITE #1 Hernandez Olmedo MD Work Phone: [facility] 01-01-2025 09:10-0400 Diastolic blood pressure 75 mm[Hg] Hernandez Olmedo MD Work Phone: [facility] 01-01-2025 09:10-0400 Heart rate 60 /min Hernandez Olmedo MD Work Phone: [facility] 01-01-2025 09:10-0400 HGHTCHNVIS Hernandez Olmedo MD Work Phone: [facility] 01-01-2025 09:10-0400 Systolic blood pressure 135 mm[Hg] Hernandez Olmedo MD Work Phone: [facility] 01-01-2025 09:10-0400 VITALSDONE Hernandez Olmedo MD Work Phone: [facility] 11-27-2024 08:06-0400 Body mass index (BMI) [Ratio] 32.4 kg/m2 Dr. Sher Tom DO Work Phone: [facility] 11-27-2024 08:06-0400 Body temperature 97.1 [degF] Dr. Sher Tom DO Work Phone: [facility] 11-27-2024 08:06-0400 Body weight 102.[address] Sher Tom DO Work Phone: [facility] 11-27-2024 08:06-0400 Diastolic blood pressure 73 mm[Hg] Dr. Sher Tom DO Work Phone: [facility] 11-27-2024 08:06-0400 Heart rate 64 /min Dr. Sher Tom DO Work Phone: [facility] 11-27-2024 08:06-0400 Respiratory rate 18 /min Dr. Sher Tom DO Work Phone: [facility] 11-27-2024 08:06-0400 SaO2% (BldA) [Mass fraction] 93 % Dr. Sher Tom DO Work Phone: [facility] 11-27-2024 08:06-0400 Systolic blood pressure 146 mm[Hg] Dr. Sher Tom DO Work Phone: [facility] 11-01-2024 12:42-0400 Body height 177.[address] Sher Tom DO Work Phone: [facility] 11-01-2024 12:42-0400 Body weight 99.[address] Sher Tom DO Work Phone: [facility] 11-01-2024 12:42-0400 Heart rate 72 /min Dr. Sher Tom DO Work Phone: [facility] 11-01-2024 12:42-0400 SaO2% (BldA) [Mass fraction] 97 % Dr. Sher Tom DO Work Phone: [facility] 10-23-2024 10:03-0400 Body height 177.[address] Sher Tom DO Work Phone: [facility] 10-23-2024 10:03-0400 Body mass index (BMI) [Ratio] 32.4 kg/m2 Dr. Sher Tom DO Work Phone: [facility] 10-23-2024 10:03-0400 Body temperature 97.6 [degF] Dr. Sher Tom DO Work Phone: [facility] 10-23-2024 10:03-0400 Body weight 102.[address] Sher Tom DO Work Phone: [facility] 10-23-2024 10:03-0400 Diastolic blood pressure 80 mm[Hg] Dr. Sher Tom DO Work Phone: [facility] 10-23-2024 10:03-0400 Heart rate 54 /min Dr. Sher Tom DO Work Phone: [facility] 10-23-2024 10:03-0400 Respiratory rate 18 /min Dr. Sher Tom DO Work Phone: [facility] 10-23-2024 10:03-0400 SaO2% (BldA) [Mass fraction] 97 % Dr. Sher Tom DO Work Phone: [facility] 10-23-2024 10:03-0400 Systolic blood pressure 158 mm[Hg] Dr. Sher Tom DO Work Phone: [facility] 01-27-2024 10:40-0400 Respiratory rate 16 /min DR ZABRINA ASTORGA MD [address] 01-27-2024 10:24-0400 Diastolic Blood Pressure Non-Invasive 60 mm[Hg] DR ZABRINA ASTORGA MD [address] [place] [id number] 01-27-2024 10:24-0400 Heart rate 54 /min DR ZABRINA ASTORGA MD [address] [place] [id number] 01-27-2024 10:24-0400 Respiratory rate 16 /min DR ZABRINA ASTORGA MD [address] 01-27-2024 10:24-0400 Systolic Blood Pressure Non-Invasive 108 mm[Hg] DR ZABRINA ASTORGA MD [address] [place] [id number] 01-27-2024 09:55-0400 Diastolic Blood Pressure Non-Invasive 62 mm[Hg] DR ZABRINA ASTORGA MD [address] [place] [address] 01-27-2024 09:55-0400 Heart rate 50 /min DR ZABRINA ASTORGA MD [address] 01-27-2024 09:55-0400 Respiratory rate 18 /min DR ZABRINA ASTORGA MD [address] [place] [address] 01-27-2024 09:55-0400 Systolic Blood Pressure Non-Invasive 105 mm[Hg] DR ZABRINA ASTORGA MD [address] [place] [address] 01-27-2024 09:43-0400 Diastolic Blood Pressure Non-Invasive 53 mm[Hg] DR ZABRINA ASTORGA MD [address] [place] [address] 01-27-2024 09:43-0400 Heart rate 63 /min DR ZABRINA ASTORGA MD [address] [place] [address] 01-27-2024 09:43-0400 Systolic Blood Pressure Non-Invasive 126 mm[Hg] DR ZABRINA ASTORGA MD [address] [place] [address] 01-27-2024 09:38-0400 Body temperature 96.8 [degF] DR ZABRINA ASTORGA MD [address] [place] [address] 01-27-2024 09:38-0400 Heart rate 71 /min DR ZABRINA ASTORGA MD [address] [place] [address] 01-27-2024 09:35-0400 Heart rate 66 /min DR ZABRINA ASTORGA MD [address] [place] [address] 01-27-2024 09:35-0400 Respiratory Rate - Anes 18 br/min DR ZABRINA ASTORGA MD [address] [place] [address] 01-27-2024 09:30-0400 Respiratory Rate - Anes 20 br/min DR ZABRINA ASTORGA MD [address] [place] [address] 01-27-2024 09:25-0400 Respiratory Rate - Anes 20 br/min DR ZABRINA ASTORGA MD [address] [place] [address] 01-27-2024 07:06-0400 Body height 177.[address] ZABRINA ASTORGA MD [address] [place] [address] 01-27-2024 07:06-0400 Body temperature 98.06 [degF] DR ZABRINA ASTORGA MD [facility] 01-27-2024 07:06-0400 Body weight 100.[address] ZABRINA ASTORGA MD [facility] 01-27-2024 07:06-0400 Heart rate 86 /min DR ZABRINA ASTORGA MD [facility] 01-19-2022 15:58-0400 Body temperature 97.5 [degF] Haylie Wolfe DO Work Phone: [facility] 01-19-2022 15:58-0400 Body weight 98.88 kg Haylie Wolfe DO Work Phone: [facility] 01-19-2022 15:58-0400 Diastolic blood pressure 86 mm[Hg] Haylie Wolfe DO Work Phone: [facility] 01-19-2022 15:58-0400 Heart rate 60 /min Haylie Wolfe DO Work Phone: [facility] 01-19-2022 15:58-0400 Respiratory rate 18 /min Haylie Wolfe DO Work Phone: [facility] 01-19-2022 15:58-0400 SaO2% (BldA) [Mass fraction] 97 % Haylie Wolfe DO Work Phone: [facility] 01-19-2022 15:58-0400 Systolic blood pressure 157 mm[Hg] Haylie Wolfe DO Work Phone: [facility] Encounters Encounter Date Encounter Type Care Provider Facility Start: 01-25-2025 ambulatory Sher Tom [facility] Start: 01-22-2025 In-person encounter Hernandez johnston MD Work Phone: [facility] Work Phone: Start: 01-22-2025 Visit out of hours Hernandez palacios MD Work Phone: [employer] Work Phone: Start: 01-17-2025 End: 01-17-2025 ambulatory SHRE TOM [facility] Start: 01-17-2025 End: 01-17-[address] SHER TOM DO [facility] Start: 01-10-2025 End: 01-10-2025 ambulatory SHER TOM Facility[facility] Start: 01-10-2025 End: 01-10-[address] SHER TOM DO [facility] Start: 01-08-2025 End: 01-08-2025 Patient encounter procedure EMILY Warner [facility] Work Phone: Start: 01-08-2025 End: 01-08-[address] Sher Tom DO Work Phone: -[facility] Start: 01-01-2025 In-person encounter Hernandez johnston MD Work Phone: [facility] Work Phone: Start: 01-01-2025 Visit out of hours Hernandez palacios MD Work Phone: [employer] [employer] [facility] Work Phone: Start: 12-19-2024 End: 12-19-2024 ambulatory C++ PROFESSOR WILI WARNER Facility:[facility] Start: 12-19-2024 End: 12-19-2024 Patient encounter procedure CHERELLE WARNER [facility] Start: 12-18-2024 End: 12-18-[address] Sher Tom DO Work Phone: -[facility] Start: 12-18-2024 End: 12-18-2024 Patient encounter procedure EMILY Warner [facility] Work Phone: Start: 12-18-2024 End: 12-18-2024 ambulatory Sher Tom Facility:[facility] Start: 11-27-2024 End: 11-27-2024 Patient encounter procedure CLINICAL PHARMACY COORDINATOR Cherelle Warner -[facility] Work Phone: Start: 11-27-2024 End: 11-27-[address] Sher Tom DO Work Phone: -[facility] Start: 11-06-2024 End: 11-06-[address] Sher Tom DO Work Phone: -Pulmonary Services/Neurology Start: 11-06-2024 End: 11-06-[address] Andreas Sahu DO -[facility] Services/Neurology Work Phone: Start: 11-06-2024 End: 11-06-2024 ambulatory Sher Tom Facility:[facility] Start: 11-02-2024 ambulatory Andreas Sahu Facility:[facility] Start: 11-02-2024 Non-patient / Non-visit Dr. Andreas Sahu DO -[facility] Start: 11-01-2024 End: 11-01-[address] Sher Tom DO Work Phone: -[facility]ulmonary Services/Neurology Start: 11-01-2024 End: 11-01-[address] Andreas Sahu DO -Pulmonary Services/Neurology Work Phone: Start: 11-01-2024 End: 11-01-2024 ambulatory Sher Tom Facility:[facility] Start: 10-23-2024 End: 10-23-[address] Andreas Sahu DO -[facility] Work Phone: Start: 10-23-2024 End: 10-23-[address] Sher Tom DO Work Phone: -[facility] Start: 08-24-2024 End: 08-24-2024 ambulatory SHER TOM Facility[facility] Start: 08-24-2024 End: 08-24-[address] SHER TOM DO [facility] Start: 07-31-2024 End: 07-31-2024 ambulatory SHER TOM Facility[facility] Start: 01-27-2024 End: 01-27-2024 ambulatory RAMY WU MD Facility:[facility] Start: 01-27-2024 End: 01-27-[address] ZABRINA ASTORGA MD [facility] Start: 01-10-2024 End: 01-10-[address] SHER TOM DO [facility] Start: 01-06-2024 End: 01-06-2024 Patient encounter procedure SOPHIA AVILA C++ PROFESSOR-MECHANICAL MAINTENANCE TECHNICIAN [facility] Start: 12-30-2023 End: 12-30-[address] SHER TOM DO [facility] Start: 12-22-2023 ambulatory SOPHIA IGNACIOMECHANICAL MAINTENANCE TECHNICIAN F acility:[facility] Start: 12-21-[address] SHER TOM DO Fac ility:[facility] Start: 08-22-2023 End: 08-22-[address] SHER TOM DO Facility:[facility] Start: 08-22-2023 End: 08-22-[address] SHER TOM DO [facility] Start: 08-03-2023 End: 08-03-[address] SHER TOM DO Facility:[facility] Start: 08-03-2023 End: 08-03-[address] SHER TOM DO [facility] Start: 01-21-2023 End: 01-21-[address] SHER TOM DO Facility:[facility] Start: 01-21-2023 End: 01-21-[address] SHER TOM DO [facility] Start: 12-24-2022 End: 12-24-[address] SHER TOM DO Facility:[facility] Start: 10-27-2022 End: 10-27-2022 ambulatory [facility] Work Phone: Start: 10-27-2022 End: 10-27-2022 Patient encounter procedure [facility]-Cat Scan, [facility] Work Phone: Start: 08-09-2022 End: 08-09-[address] SHER TOM DO [facility] Start: 07-30-2022 End: 07-30-[address] SHER TOM DO [facility] Start: 01-19-2022 End: 01-19-2022 ambulatory HAYLIE WOLFE Facility:[id number] Start: 01-19-2022 End: 01-19-2022 Patient encounter procedure [facility] Provider [facility] Department Comment on above: Dog bite, initial en counter (Primary Dx) Start: 08-07-2021 End: 08-07-[address] SHER TOM DO [facility] Procedures Date Procedure Procedure Detail Performing Clinician Start: 01-22-2025 Blood pressure outsi de of normal parameters - follow-up documented Hernandez Olmedo MD Work Phone: Start: 01-22-2025 BMI documented as ab ove normal parameters - follow-up documented Hernandez Olmedo MD Work Phone: Start: 01-22-2025 Current tobacco non- user cad cap copd pv dm Hernandez Olmedo MD Work Phone: Start: 01-22-2025 Documentation of cur rent medications Hernandez Olmedo MD Work Phone: Start: 01-22-2025 Pain assessment docu mented as negative - follow-up not required Hernandez Olmedo MD Work Phone: Start: 01-07-2025 Cyst (disorder) DR NAJMA TOM DO Comment on above: removed from right i ndex finger Start: 01-01-2025 Blood pressure withi n normal parameters - no follow-up required Hernandez Olmedo MD Work Phone: Start: 01-01-2025 BMI documented as ab ove normal parameters - follow-up documented Hernandez Olmedo MD Work Phone: Start: 01-01-2025 Current tobacco non- user cad cap copd pv dm Hernandez Olmedo MD Work Phone: Start: 01-01-2025 Documentation of cur rent medications Hernandez Olmedo MD Work Phone: Start: 01-01-2025 Pain assessment not documented - reason not given Hernandez Olmedo MD Work Phone: Start: 10-27-2022 CT of soft tissues o f neck with contrast Dilation and curettage DR JENNIFER TOM DO Plan of Treatment Date Care Activity Detail Author Start: 01-06-2027 Urine microalbumin profile DTAP,TDAP,TD (2 - Td or Tdap) [facility] Start: 12-24-2021 Influenza vaccination INFLUENZA (#1) [facility] Start: 09-29-2021 COVID-19 VACCINE (5 - Booster for Moderna series) COVID-19 VACCINE (5 - Booster for Moderna series) [facility] Start: 04-25-2021 ADVANCE DIRECTIVE DISCUSSION ADVANCE DIRECTIVE DISCUSSION [facility] Start: 04-25-2021 DEPRESSION ASSESSMENT DEPRESSION ASSESSMENT [facility] Start: 2015 BONE DENSITY BONE DENSITY [facility] Start: 2015 PNEUMOCOCCAL: 65+ (1 - PCV) PNEUMOCOCCAL: 65+ (1 - PCV) [facility] Start: 2000 SHINGRIX VACCINE (1 of 2) SHINGRIX VACCINE (1 of 2) [facility] Start: 1995 COLOGUARD (FIT-DNA) COLOGUARD (FIT-DNA) [facility] Start: 1995 Colonoscopy COLONOSCOPY [facility] Start: 1995 COLORECTAL CANCER SCREENING COLORECTAL CANCER SCREENING [facility] Start: [address] COLONOGRAPHY [facility] Start: 1995 DIABETES SCREEN DIABETES SCREEN [facility] Start: 1995 FECAL OCCULT BLOOD FECAL OCCULT BLOOD [facility] Start: 1995 LIPID SCREEN LIPID SCREEN [facility] Start: 1995 SIGMOIDOSCOPY SIGMOIDOSCOPY [facility] Start: 1990 Mammography MAMMOGRAM [facility] Start: 1968 HEPATITIS C SCREENING HEPATITIS C SCREENING [facility] Bacteria identified in Wound by Culture WOUND CULTURE AND GRAM STAIN Microbiology Routine Dog bite, initial encounter 01/19/2022 4:50 PM EDT [facility] Work Phone: CBC W Auto Different ial panel - Blood [facility] Continuous pulse oximetry [facility] Measurement of respi ratory function [facility] Polysomnography [facility] Walking distance 6 minutes [address] [facility] Immunizations Immunization Date Immunization Notes Care Provider Haven mcgovern 01-17-2025 influenza, high dose seasonal, preservative-free; Translations: [Fluzone High-Dose PF Prefilled Syringe ] DR SHER TOM DO [facility] 02-08-2024 influenza virus vacc ine, unspecified formulation DR SHER TOM DO [facility] 01-19-2024 SARS-CoV-2 (COVID-19 ) [id number] DR ZABRINA ASTORGA MD [facility] 01-12-2024 Pneumococcal conjuga te PCV20, polysaccharide [id number] conjugate, adjuvant, PF; Translations: [Prevnar 20] DR ZABRINA ASTORGA MD [facility] 01-29-2023 SARS-CoV-2 (COVID-19 ) [id number] DR SHER TOM DO [facility] 01-21-2023 influenza virus vacc ine, unspecified formulation DR SHER TOM DO [facility] 01-21-2023 RSV vaccine preF3, recombinant DR SHER TOM DO [facility] 01-19-2022 influenza virus vacc ine, unspecified formulation DR SHER TOM DO [facility] 01-19-2022 SARS-CoV-2 (CV19)mRNA-[address] SHER TOM DO [facility] 08-04-2021 COVID-19, mRNA, LNP- S, PF, 100 mcg or 50 mcg dose; Translations: [Moderna COVID-19 Vaccine] DR SHER TOM DO [facility] 02-18-2021 SARS-CoV-2 (COVID-19 ) mRNA-[id number] SHER TOM DO [facility] Comment on above: Result Comment: 2021: [id number] 01-30-2021 influenza virus vacc ine, unspecified formulation DR SHER TOM DO [facility] 07-07-2020 COVID-19, mRNA, LNP- S, PF, 100 mcg or 50 mcg dose; Translations: [Moderna COVID-19 Vaccine] DR SHER TOM DO [facility] 06-09-2020 COVID-19, mRNA, LNP- S, PF, 100 mcg or 50 mcg dose; Translations: [Moderna COVID-19 Vaccine] DR SHER TOM DO [facility] 01-16-2020 influenza virus vacc ine, unspecified formulation DR SHER TOM DO [facility] 12-25-2019 influenza virus vacc ine, unspecified formulation DR SHER TOM DO [facility] 01-29-2019 influenza virus vacc ine, unspecified formulation DR SHER TOM DO [facility] 08-22-2018 pneumococcal polysaccharide vaccine, [address] SHRE TOM DO [facility] 01-23-2018 influenza virus vacc ine, unspecified formulation DR SHER TOM DO [facility] 11-25-[address] SHER TOM DO [facility] 09-15-[address] SHER TOM DO [facility] 08-26-2017 pneumococcal conjuga te vaccine, [address] SHER TOM DO [facility] 02-01-2017 influenza virus vacc ine, unspecified formulation DR SHER TOM DO [facility] 01-06-2017 tetanus toxoid, redu gege diphtheria toxoid, and acellular pertussis vaccine, adsorbed DR SHER TOM DO [facility] 02-19-2016 influenza virus vacc ine, unspecified formulation DR SHER TOM DO [facility] 02-24-2015 influenza virus vacc ine, unspecified formulation DR SHER TOM DO [facility] 02-11-2014 influenza virus vacc ine, unspecified formulation DR SHER TOM DO [facility] Payers Date Payer Category Payer Unknown [id number] 2024 Self-pay 2023 Private Health Insurance 4ee [id number] 2020 Unknown [id number] 2020 Unknown [id number] 1950 Unknown [id number] 2.16.8 [id number] 1950 Unknown [id number] 2.16.8 40.1.391354.3.579.2.7 1950 Unknown [id number] 2.16.8 40.1.240438.3.579.2.7 1950 Unknown [id number] 2.16.8 40.1.998427.3.579.2. 1950 Unknown [id number] 2.16.8 40.1.503471.3.579.2. 1950 Unknown [id number] 2.16.8 40.1.993044.3.579.2. 1950 Unknown [id number] 2.16.8 40.1.870548.3.579.2.7 1950 Unknown [id number] 2.16. 840.1.022175.3.579.2. 1950 Unknown [id number] 2.16. 840.1.510897.3.579.2. 1950 Unknown [id number] 2.16. 840.1.637710.3.579.2. 1950 Unknown [id number] 2.16.8 40.1.170889.3.579.2.7 1950 Unknown [id number] 2.16.8 40.1.092374.3.579.2.627 Medicare [id number] Unknown [id number] Unknown [id number] 2.16.8 40.1.791720.3.579.2.462 Unknown [id number] 2.16.8 40.1.212332.3.579.2.462 Unknown [id number] 2.16.8 40.1.122653.3.579.2.462 Unknown [id number] 2.16.8 40.1.395279.3.579.2.462 Unknown [id number] 2.16.8 40.1.323447.3.579.2.462 Unknown [id number] 2.16.8 40.1.368936.3.579.2.462 Unknown [id number] 2.16.8 40.1.557846.3.579.2.462 Unknown [id number] 2.16.8 40.1.014168.3.579.2.462 Unknown [id number] 2.16.8 40.1.189724.3.579.2.462 Social History Date Type Detail Facility Start: 11-08-2019 End: 01-17-2025 Tobacco smoking status Never smoked tobacco (finding) [facility] Start: 1950 Sex Assigned At Female A [facility] Tobacco smoking stat [facility] Tobacco smoking consumption unknown [facility] Start: 1950 Sex Assigned At Not on file C [facility] Start: 01-09-2022 End: 01-19-2022 Exposure to SARS-CoV-2 (event) Not sure [facility] Sexual Orientation [facility] Start: 06-20-2019 Sex Female (finding) [facility] Start: 01-01-2025 End: 01-22-2025 Gender Identity Identifies as female gender (finding) [facility] Start: 01-01-2025 Tobacco smoking status Never s moked any substance (finding) [employer] Work Phone: Functional Status Date Assessment Result Facility 01-27-2024 Functional Status Room check per formed, Cage Supervisor at bedside [facility] 01-27-2024 Functional Status Maintained, More than 8 hours [facility] Mental Status Date Assessment Result Facility 01-01-2025 Cognitive Function [facility] [employer] Work Phone: 01-27-2024 Mental Status [facility]ed x [facility] 01-27-2024 [facility] Clinical Notes 01-19-2022 to 11-02-2024 Note Date & Type Note Facility 11-02-2024 Procedure note [facility] 10-23-2024 Evaluation note Diagnosis Onset Date Resolution Restrictive airway disease acute October 23, 2024 9 :58am [facility] Work Phone: 1(180) 147-694907-01-2025 Evaluation note* Diagnosis Onset Date Resolution Status Admit Date Restrictive airway disease acute October 23, 2024 9:58am Restrictive airway disease acute November 27, 2024 10:36am [facility] Work Phone: 1(998) 731-374907-01-2025 Evaluation note* Diagnosis Onset Date Resolution Status Admit Date Restrictive airway disease acute October 23, 2024 9:58am Restrictive airway disease acute November 27, 2024 10:36am Shortness of breath acute Aug2024 10:36am [facility] Work Phone: 1(411) 993-492707-01-2025 Evaluation note* Diagnosis Onset Date Resolution Status Admit Date Restrictive airway disease acute October 23, 2024 9:58am Restrictive airway disease acute November 27, 2024 10:36am Shortness of breath acute Aug2024 10:36am Restrictive airway disease acute January 08, 2025 1:30pm Shortness of breath acute Sept2024 1:30pm [facility] Work Phone: [phone]) 946-992805-02-2025 Note* Exam Date Time Procedure Performing Provider Status 08/24/24 11:20 AM BD Bone Density DEXA Axial Skeleton MARAL ELMORE DO; Auth (Verified) [id number] ORIGINAL EXAMINATION: BONE DENSITOMETRY 08/24/2024 11:22 am TECHNIQUE: A bone density dual x-ray absorptiometry (DEXA) scan was performed of the axial (e.g. hips, spine) and/or appendicular (e.g. radius) skeleton as appropriate. COMPARISON: 08/09/2022 HISTORY: ORDERING SYSTEM PROVIDED HISTORY: Reason for Exam: screening FINDINGS: T Score Left Femoral Neck: -0.2 Left Femoral Neck: 0.823 (g/cm2) T Score Left Hip: 1.1 Left Hip: 1.072 (g/cm2) T Score Lumbar Spine: 3.8 Lumbar Spine: 1.470 (g/cmd2) BMD Change from previous Hip:-0.054, -4.8% BMD Change from previous Lumbar Spine: 0.080, 5.8% IMPRESSION: Normal bone mineral density by WHO criteria. World Health Organization criteria: (Comparing with young normal sex matched population) - Normal: T-score at or above -1 SD (standard deviation) - Osteopenia: T-score between -1 and -2.5 SD - Osteoporosis: T-score at or below -2.5 SD The NOF recommends that FDA-approved medical therapies be considered in post-menopausal women and men age >/= 50 years with a: * Hip or vertebral fracture, or * T-score of /= 20% for major osteoporotic fractures or * >/= 3% for hip fractures All treatment decisions require clinical judgement and consideration of individual patient factors, including patient preferences, comorbidities, previous drug use, risk factors not captured in the FRAX registered model (e.g., frailty, falls, vitamin D deficiency, increased bone turnover, interval significant decline in bone density) and possible under- or over-estimation of fracture risk by FRAX. Interpreted by: Maral Elmore DO Preliminary Report By: Maral Elmore DO Electronically signed By Maral Elmore DO Dictated Date: 08/24/2024 11:26:14 AM Prelim Date: 08/24/2024 11:27:13 AM Sign Date: 08/24/2024 11:27:13 AM Ordering Provider: [facility]10-04-2024 Anesthesiology Consult note Patient: LASHANDA FREEMAN Age: 73 years Sex: Female : 1950 Associated Diagnoses: None Author: RAMY WU MD Postoperative Information s/p DCCV Assessment Postanesthesia assessment Vitals: Vital signs from flowsheet : Vital Signs 01/27/2024 10:24 EDT Apical Heart Rate 54 bpm LOW Respiratory Rate 16 br/min Systolic Blood Pressure Non-Invasive 108 mmHg Diastolic Blood Pressure Non-Invasive 60 mmHg , Oxygen Therapy : Oxygen Therapy & Oxygenation Information 01/27/2024 9:55 EDT Oxygen Therapy Room air Oxygen Saturation 95 % . Mental status: at preoperative baseline. Respiratory function: respirations are non-labored. Respiratory support: none. CV function: Normal rate, Regular rhythm. Cardiovascular support: none. Pain: Satisfactory. Nausea status: Satisfactory. Postoperative hydration status: within normal limits. Notes: Patient is sufficiently recovered from anesthesia to participate in the evaluation. No follow-up care needed. No complications post-anesthesia.. Digitally Signed by RAMY WU MD on 01/27/2024 05:11 PM [id number] Discharge instructions Patient Education 01/27/2024 09:25:17 3- Cardioversion (01/2018) (CUSTOM) CARDIOVERSION Discharge instructions ACTIVITY/SAFETY Please refrain from the following activities for 24 hours: Do not drive a car or operate heavy equipment. Do not consume alcohol for 24 hours. Do not return to work for 24 hours. Postpone signing any important papers or making important decisions. COMFORT Call your primary doctor if you have any redness, tenderness, warmth, discharge or swelling at yourIV site. Your chest or back may get red and/or develop a burning sensation. Apply fragrance-free Aloe Vera lotion. Take Tylenol as needed for pain. DIET When you return home, resume your regular diet unless otherwise directed. Some of the sedatives, anesthetic medications you received today may make you nauseated. If vomiting persists, call your doctor. Restart your usual medications unless otherwise instructed by your doctor. If you have any questions, please call your doctor at the number listed on your follow up instructions. Document Released: 04/11/2006 Document Revised: 03/28/2013 Document Reviewed: 04/12/2014 [facility] Patient Information 2015 [employer] [facility] [facility]. This information is not intended to replace advicegiven to you by your health care provider. Make sure you discuss any questions you have with your health care provider. 01/27/2024 09:25:11 Moderate Conscious Sedation, Adult, Care After Moderate Conscious Sedation, Adult, Care After These instructions provide you with information about caring for yourself after your procedure. Your health care provider may also give you more specific instructions. Your treatment has been plannedaccording to current medical practices, but problems sometimes occur. Call your health care provider if you have any problems or questions after your procedure. What can I expect after the procedure? After your procedure, it is common: To feel sleepy for several hours. To feel clumsy and have poor balance for several hours. To have poor judgment for several hours. To vomit if you eat too soon. Follow these instructions at home: For at least 24 hours after the procedure: Do not: ?Participate in activities where you could fall or become injured. ?Drive. ?Use heavy machinery. ?Drink alcohol. ?Take sleeping pills or medicines that cause drowsiness. ?Make important decisions or sign legal documents. ?Take care of children on your own. Rest. Eating and drinking Follow the diet recommended by your health care provider. If you vomit: ?Drink water, juice, or soup when you can drink without vomiting. ?Make sure you have little or no nausea before eating solid foods. General instructions Have a responsible adult stay with you until you are awake and alert. Take llbv-wje-rpuycoj and prescription medicines only as told by your health care provider. If you smoke, do not smoke without supervision. Keep all follow-up visits as told by your health care provider. This is important. Contact a health care provider if: You keep feeling nauseous or you keep vomiting. You feel light-headed. You develop a rash. You have a fever. Get help right away if: You have trouble breathing. This information is not intended to replace advice given to you by your health care provider. Make sure you discuss any questions you have with your health care provider. Document Released: 01/30/2014 Document Revised: 03/24/2018 Document Reviewed: 07/31/2016 evOLED Patient Education 2020 [employer]. Follow Up Care 01/17/2024 10:35:45 With:SOPHIA AVILA Address: [address] [place] [address] [address] [facility] [place] [address]- [phone] When: Unknown Comments:Follow-up as scheduled [facility] 10-04-2024 Summary of episode note Discharge Instructions Thank you for allowing [place] to assist you with your healthcare needs. The following is importantdischarge information regarding your hospital visit. Your Care Team SHER TOM DO What to do next Scheduled Follow-Up Appointments Appointment Type When With Where Contact Information StatusCV OV 02/06/2024 01:00 PM EDT [facility] Confirmed PC OV 08/09/2024 09:00 AM EDT [facility] [address] [place] [address] Confirmed Follow Up Appointments Follow Up with SOPHIA AVILA Where:[address] [facility] [place] [phone] Additional Information: Follow-up as scheduled The Following Activity and Diet Have Been Ordered for You Discharge Activity - Ordered -- Follow the post-operative/post-procedure activity instructions provided by your physician's office., 01/27/24 9:59:00 EDT Discharge Diet - Ordered -- Follow the post-operative/post-procedure diet instructions provided by your physician's office.,01/27/24 9:59:00 EDT The Following Treatments Have Been Ordered for You Discharge Labs No qualifying data available. Discharge Radiology No qualifying data available. Other Therapies No qualifying data available. Post Acute Orders No qualifying data available. Allergies NKA Medications Please ask your primary doctor or pharmacist before taking any other medication not listed, including over the counter drugs, herbal medications, vitamins and or supplements as they may interact withyour home medications. What How Much When Instructions Last Dose Unchanged amLODIPine (amLODIPine 5 mg oral tablet) 1 tab(s) by mouth Once a day Unchanged ammonium lactate topical (ammonium lactate 12% topical cream) 1 application Topical Two (2) times a day Unchanged apixaban (Eliquis 5 mg oral tablet) 1 tab(s) by mouth Two (2) times a day Unchanged ascorbic acid/ chondroitin/ glucosa/ debbie (Glucosamine Chondroitin) by mouth Once a day Unchanged calcium carbonate (calcium (as carbonate) 600 mg oral tablet) 1 tab(s) by mouth Twice daily with meals Unchanged fexofenadine (Kandi 24 Hour Allergy oral tablet) 1 tab(s) by mouth Every day Unchanged fluticasone nasal (Flonase 50 mcg/ inh nasal spray) 2 spray(s) each nostril Once a day (in the morning) Unchanged hydrochlorothiazide-losartan (hydrochlorothiazide-losartan 25-100 mg oral tablet) See instructions TAKE 1 TABLET EVERY DAY Unchanged propranolol (propranolol 60 mg oral capsule, extended release) 1 cap by mouth Two (2) times a day Unchanged simvastatin (simvastatin 20 mg oral tablet) 1 tab(s) by mouth Daily at bedtime Please take this list to your next doctor s visit. Bring all medications you take, including over the counter medications, herbals and other supplements with you to your doctor s visit. Patients and families are reminded to discard old lists and to update any records with all medication providers or retail pharmacies. Education Materials CARDIOVERSION Discharge instructions ACTIVITY/SAFETY Please refrain from the following activities for 24 hours: Do not drive a car or operate heavy equipment. Do not consume alcohol for 24 hours. Do not return to work for 24 hours. Postpone signing any important papers or making important decisions. COMFORT Call your primary doctor if you have any redness, tenderness, warmth, discharge or swelling at yourIV site. Your chest or back may get red and/or develop a burning sensation. Apply fragrance-free Aloe Vera lotion. Take Tylenol as needed for pain. DIET When you return home, resume your regular diet unless otherwise directed. Some of the sedatives, anesthetic medications you received today may make you nauseated. If vomiting persists, call your doctor. Restart your usual medications unless otherwise instructed by your doctor. If you have any questions, please call your doctor at the number listed on your follow up instructions. Document Released: 04/11/2006 Document Revised: 03/28/2013 Document Reviewed: 04/12/2014 ExitCare Patient Information 2015 [employer]. This information is not intended to replace advicegiven to you by your health care provider. Make sure you discuss any questions you have with your health care provider. Moderate Conscious Sedation, Adult, Care After These instructions provide you with information about caring for yourself after your procedure. Your health care provider may also give you more specific instructions. Your treatment has been plannedaccording to current medical practices, but problems sometimes occur. Call your health care provider if you have any problems or questions after your procedure. What can I expect after the procedure? After your procedure, it is common: To feel sleepy for several hours. To feel clumsy and have poor balance for several hours. To have poor judgment for several hours. To vomit if you eat too soon. Follow these instructions at home: For at least 24 hours after the procedure: Do not: ? Participate in activities where you could fall or become injured. ? Drive. ? Use heavy machinery. ? Drink alcohol. ? Take sleeping pills or medicines that cause drowsiness. ? Make important decisions or sign legal documents. ? Take care of children on your own. Rest. Eating and drinking Follow the diet recommended by your health care provider. If you vomit: ? Drink water, juice, or soup when you can drink without vomiting. ? Make sure you have little or no nausea before eating solid foods. General instructions Have a responsible adult stay with you until you are awake and alert. Take ljfr-oup-xwugwbt and prescription medicines only as told by your health care provider. If you smoke, do not smoke without supervision. Keep all follow-up visits as told by your health care provider. This is important. Contact a health care provider if: You keep feeling nauseous or you keep vomiting. You feel light-headed. You develop a rash. You have a fever. Get help right away if: You have trouble breathing. This information is not intended to replace advice given to you by your health care provider. Make sure you discuss any questions you have with your health care provider. Document Released: 01/30/2014 Document Revised: 03/24/2018 Document Reviewed: 07/31/2016 evOLED Patient Education 2020 [employer]. Additional Information VACCINATE! IT SAVES LIVES! Members of the community who have not yet received the COVID-19 vaccine and would like to receive it can visit one of [facility] vaccine clinics. There are many vaccine clinic locations within the [facility]. For locations and available times, please visit https://gettheshot.coronavirus.[place].gov/. It is important to note that some COVID mobile vaccine clinics are held outdoors and may be canceled in rainy or stormy conditions. To learn more about pediatric vaccinations (ages 5-11), we invite you to visit the [facility] webpage. [email or web address]/[email or web address] stions.htmlTo learn more about the COVID-19 vaccine, we invite you to visit the CDC website for a list of frequently asked questions.https://www.cdc.gov/coronavirus/2019-ncov/vaccines/faq.html [facility] Patient Portal Access Instructions: Stay connected with your healthcare team and access your personal medical information anytime with the [place] [employer] [facility] Patient Portal. Please follow the directions below to create your [place] [facility] account: 1.Access the email account you provided upon registration to the hospital/physician office.2.Look for an invitation email from [facility].3.Open the email and access the invitation link: AcceptInvitation to [place] [facility].4.Fill in the required vail to create your account. To access your account, visit [email or web address]. Click the blue button labeled "Access Patient Portal" and then log in with the username and password that you created in the steps above. You will be able to view your test results, lab results, a summary of your visits, upcoming appointments and more. There is also a convenient messaging option where you can send secure messages to your p rovider. In addition, you will have the ability to download any documents or summaries to your computer and/or send the information securely to a physician. Remember that your healthcare information is confidential, so carefully consider who you will allowto register on the [place] [employer] Patient Portal for access to your information. You can also access the [place] [facility] Patient Portal on the [place] [facility] guillermo. Simply click on "Patient Portal" and then log into your account. If you would like to receive a full copy of your medical records, please contact the [facility] Medical Records Department by calling [phone], Tuesday through Tuesday between 8 a.m. and 4:30 p.m. HOW TO SAFELY DISPOSE OF PRESCRIPTION MEDICATIONS Please use one of the following methods to safely dispose of your unused medications. 1.Use a drug disposal kit: the drug disposal pouch allows you to safely discard your old and unuseddrugs. Ask your nurse to give you one when you are discharged.2.Visit a local take-back location: Many local pharmacies and police departments have programs that collect old and unwanted prescriptiondrugs. Call your local pharmacy or go to http://bit.ly/0B3Am4q to find one close to you.3.Make use of household items: Use cat litter or old coffee grounds to dispose medications if other options arenot available. Mix your drugs with these household products, seal them in an airtight container andthrow it into the garbage. Call [facility]: [phone] to be sure your drugs can be disposed of in this way. Some medicines may require a different approach.4.Never flush your medications down the toilet. IF YOU HAVE BEEN PRESCRIBED AN OPIOID FOR PAIN If you have been prescribed an opioid (such as hydrocodone, oxycodone or morphine), it is critical to understand the possible side effects and risks of opioid pain medications. Even when taken as directed, opioids can have several side effects including: Tolerance, meaning you might need to take more of a medication for the same pain relief. Nausea, vomiting and/or constipation. Sleepiness, dizziness, dry mouth, confusion, depression or itching. Physical dependence, meaning you have withdrawal symptoms when a medication is stopped, can develop within a few days. KNOW YOUR RESPONSIBILITIES It is important to know exactly how much and how often to take the opioid pain medications you are prescribed. Never take opioids in higher amounts or more often than prescribed. Do not combine opioids with alcohol or other drugs that cause drowsiness, such as benzodiazepines, also known as benzos, including diazepam and alprazolam, muscle relaxants or sleep aids. Never sell or share prescription opioids. This is illegal. Store opioids in a secure place and out of reach of others (including children, family, friends and visitors). The last page of this document has been signed and retained as a CHART COPY. Signatures Patient Education Materials 3- Cardioversion (01/2018) (CUSTOM) Moderate Conscious Sedation, Adult, Care After Medication Leaflets My discharge plan and instructions have been reviewed and explained to me and I,LASHANDA FREEMAN understand my current condition and have read and understand these discharge instructions. I have received a written copy of the plan/instructions. If I have questions, I am aware that I should contact my doctor. Patient/Project Estimator Signature: Date/Time: Relationship to Patient: Witness Name/Signature: Date/Time: [id number] Discharge summary Date of Service January 27, 2024 Shared/Split visit with Dr. Cox Primary Gen Amee Lloyd (C++ PROFESSOR-MECHANICAL MAINTENANCE TECHNICIAN) Discharge Diagnosis AF Hospital Course This is a 73-year-old female with a known history of atrial fibrillation. Followed by Sophia Avila (C++ PROFESSOR MECHANICAL MAINTENANCE TECHNICIAN noted to be back in atrial fibrillation. Plan management was to plan for direct-current cardioversion. Patient is anticoagulated with Eliquis and rate controlled with propranolol. She does remain on hydrochlorothiazide/losartan for blood pressure support. Patient presented for direct-current cardioversion January 27, 2024 in a fasting well-hydrated state. Presenting rhythm was atrial fibrillation heart rate approximately 95 bpm. Once a AMBULANCE DISPATCHER administered an IV anesthetic agent the patient was fully sedated anterior posterior patch approach utilizing synchronized biphasic waveform at 120 J was successful converting the patientback to normal sinus rhythm at a heart rate of 60 bpm with an occasional APC. The patient tolerated the procedure well and was returned to cardiac same-day in good condition. Patient is recommended to remain on her current medical therapies and follow-up in 6 to 8 weeks discussed rate and rhythm. Allergies NKA Procedures January 27, 2024 -> DCC -> NSR w/ APC Consults No qualifying data available. Objective Vitals and Measurements T: 36.7 C (Oral) HR: 66 (Monitored) RR: 16 BP: 118/51 SpO2: 93% HT: 177.8 cm WT: 100.8 kg Weight Dosing Weight: 100.8 kg (01/27/24) Pending Labs and Studies EKG prior to discharge Code Status No qualifying data available. Admission Date January 27, 2024 Discharge Date January 27, 2024 Patient Instructions No driving for today. Patient may resume prior diet and activity tomorrow. Medications Unchanged amLODIPine (amLODIPine 5 mg oral tablet)1 tab(s) by mouth once a day. Refills: 1. ammonium lactate topical (ammonium lactate 12% topical cream)1 application Topical two (2) times a day. apixaban (Eliquis 5 mg oral tablet)1 tab(s) by mouth two (2) times a day. Refills: 0. ascorbic acid/chondroitin/glucosa/debbie (Glucosamine Chondroitin)by mouth once a day. calcium carbonate (calcium (as carbonate) 600 mg oral tablet)1 tab(s) by mouth twice daily with meals. fexofenadine (Kandi 24 Hour Allergy oral tablet)1 tab(s) by mouth every day. Refills: 0. fluticasone nasal (Flonase 50 mcg/inh nasal spray)2 spray(s) each nostril once a day (in the morning). Refills: 0. hydrochlorothiazide-losartan (hydrochlorothiazide-losartan 25-100 mg oral tablet)TAKE 1 TABLET EVERY DAY. Refills: 1. propranolol (propranolol 60 mg oral capsule, extended release)1 cap by mouth two (2) times a day. Refills: 1. simvastatin (simvastatin 20 mg oral tablet)1 tab(s) by mouth daily at bedtime. Refills: 1. Follow Up Follow-up in 6 to 8 weeks discussed rate and rhythm. Condition on Discharge Stable Digitally Signed by PATTI WOLF on 01/27/2024 09:47 AM Digitally Signed by SONI COX MD on 01/27/2024 01:26 PM [id number] Cardiology procedure note Date of Service January 27, 2024 Procedure Name Direct Current Cardioversion Referring Provider Sophia Avila (ADWOA RASHEED) Consent Informed consent was obtained by nursing and anesthesia personnel Indication AF Location CVOR Technique This is a 73-year-old female with a known history of atrial fibrillation. Followed by Sophia Avila (ADWOA RASHEED noted to be back in atrial fibrillation. Plan management was to plan for direct-current cardioversion. Patient is anticoagulated with Eliquis and rate controlled with propranolol. She does remain on hydrochlorothiazide/losartan for blood pressure support. Patient presented for direct-current cardioversion January 27, 2024 in a fasting well-hydrated state. Presenting rhythm was atrial fibrillation heart rate approximately 95 bpm. Once a AMBULANCE DISPATCHER administered an IV anesthetic agent the patient was fully sedated anterior posterior patch approach utilizing synchronized biphasic waveform at 120 J was successful converting the patientback to normal sinus rhythm at a heart rate of 60 bpm with an occasional APC. The patient tolerated the procedure well and was returned to cardiac same-day in good condition. Patient is recommended to remain on her current medical therapies and follow-up in 6 to 8 weeks discussed rate and rhythm. Assessment/Plan Orders: amLODIPine, 5 mg= 1 tab(s), Oral, qDay ammonium lactate topical(ammonium lactate 12% topical cream), 1 guillermo, Topical, BID apixaban(Eliquis), 5 mg= 1 tab(s), Oral, BID calcium carbonate, 600 mg= 1 tab(s), Oral, BIDM fexofenadine, 180 mg= 1 tab(s), Oral, Daily fluticasone nasal(Flonase 50 mcg/inh nasal spray), 100 mcg= 2 spray(s), Nostril, each, qAM propranolol(propranolol extended release), 60 mg= 1 cap(s), Oral, BID simvastatin, 20 mg= 1 tab(s), Oral, qHS Blood Gas Panel (poc), 01/27/24 3:09:26 EDT, UR (collect within 2 hrs), Blood Blood Gas Panel (poc), 01/27/24 3:09:26 EDT, UR (collect within 2 hrs), Blood Blood Gas Panel (poc), 01/27/24 3:09:26 EDT, UR (collect within 2 hrs), Blood Blood Gas Panel (poc), 01/27/24 3:09:26 EDT, UR (collect within 2 hrs), Blood Blood Gas Panel (poc), 01/27/24 3:09:26 EDT, UR (collect within 2 hrs), Blood Ca Ionized (poc), 01/27/24 3:09:26 EDT, UR (collect within 2 hrs), Blood Ca Ionized (poc), 01/27/24 3:09:26 EDT, UR (collect within 2 hrs), Blood Ca Ionized (poc), 01/27/24 3:09:26 EDT, UR (collect within 2 hrs), Blood Ca Ionized (poc), 01/27/24 3:09:26 EDT, UR (collect within 2 hrs), Blood Ca Ionized (poc), 01/27/24 3:09:26 EDT, UR (collect within 2 hrs), Blood Chloride (poc), 01/27/24 3:09:26 EDT, UR (collect within 2 hrs), Blood Chloride (poc), 01/27/24 3:09:26 EDT, UR (collect within 2 hrs), Blood Chloride (poc), 01/27/24 3:09:26 EDT, UR (collect within 2 hrs), Blood Chloride (poc), 01/27/24 3:09:26 EDT, UR (collect within 2 hrs), Blood Chloride (poc), 01/27/24 3:09:26 EDT, UR (collect within 2 hrs), Blood Electrocardiogram(EKG), 01/27/24 9:13:00 EDT, POST CV Glucose (poc), 01/27/24 3:09:26 EDT, UR (collect within 2 hrs), Blood Glucose (poc), 01/27/24 3:09:26 EDT, UR (collect within 2 hrs), Blood Glucose (poc), 01/27/24 3:09: EDT, UR (collect within 2 hrs), Blood Glucose (poc), 01/27/24 3:09:26 EDT, UR (collect within 2 hrs), Blood Glucose (poc), 01/27/24 3:09:26 EDT, UR (collect within 2 hrs), Blood Hematocrit (poc), 01/27/24 3:09:26 EDT, UR (collect within 2 hrs), Blood Hematocrit (poc), 01/27/24 3:09:26 EDT, UR (collect within 2 hrs), Blood Hematocrit (poc), 01/27/24 3:09:26 EDT, UR (collect within 2 hrs), Blood Hematocrit (poc), 01/27/24 3:09:26 EDT, UR (collect within 2 hrs), Blood Hematocrit (poc), 01/27/24 3:09:26 EDT, UR (collect within 2 hrs), Blood Hemoglobin (poc), 01/27/24 3:09:26 EDT, UR (collect within 2 hrs), Blood Hemoglobin (poc), 01/27/24 3:09:26 EDT, UR (collect within 2 hrs), Blood Hemoglobin (poc), 01/27/24 3:09:26 EDT, UR (collect within 2 hrs), Blood Hemoglobin (poc), 01/27/24 3:09:26 EDT, UR (collect within 2 hrs), Blood Hemoglobin (poc), 01/27/24 3:09:26 EDT, UR (collect within 2 hrs), Blood Potassium (poc), 01/27/24 3:09:26 EDT, UR (collect within 2 hrs), Blood Potassium (poc), 01/27/24 3:09:26 EDT, UR (collect within 2 hrs), Blood Potassium (poc), 01/27/24 3:09:26 EDT, UR (collect within 2 hrs), Blood Potassium (poc), 01/27/24 3:09:26 EDT, UR (collect within 2 hrs), Blood Potassium (poc), 01/27/24 3:09:26 EDT, UR (collect within 2 hrs), Blood Sodium (poc), 01/27/24 3:09:26 EDT, UR (collect within 2 hrs), Blood Sodium (poc), 01/27/24 3:09:26 EDT, UR (collect within 2 hrs), Blood Sodium (poc), 01/27/24 3:09:26 EDT, UR (collect within 2 hrs), Blood Sodium (poc), 01/27/24 3:09:26 EDT, UR (collect within 2 hrs), Blood Sodium (poc), 01/27/24 3:09:26 EDT, UR (collect within 2 hrs), Blood Digitally Signed by PATTI WOLF on 01/27/2024 09:44 AM [id number] Anesthesiology Consult note Patient: LASHANDA FREEMAN Age: 73 years Sex: Female : 1950 Associated Diagnoses: None Author: RAMY WU MD Preoperative Information Time of last food or liquid consumption: 01/26/2024 23:00:00 Anesthesia history Patient's history: negative. Family's history: negative. History of Present Illness 73 yr old F pt with afib presents for DCCV. TTE, 01/06/2024: Summary: 1. Left ventricle: The cavity size is normal. Wall thickness is mildly increased. Systolic functionis normal. The estimated ejection fraction is 55-60%. Wall motion is normal; there are no regional wall motion abnormalities. Normal diastolic function. 2. Mitral valve: There is mild regurgitation. 3. Left atrium: The atrium is dilated. 4. Right ventricle: The cavity size is increased. Systolic pressure is increased. The RV systolic pressure by Doppler is 41 mm Hg. 5. Tricuspid valve: There is moderate regurgitation. 6. Right atrium: The atrium is dilated. The estimated right atrial pressure is 3 mm Hg. Review of Systems Ear/Nose/Mouth/Throat: Negative except for what is mentioned in problem list.. Respiratory: Negative except for what is mentioned in problem list.. Cardiovascular: Negative except for what is mentioned in problem list.. Gastrointestinal: Negative except for what is mentioned in problem list.. Genitourinary: Negative except for what is mentioned in problem list.. Endocrine: Negative except for what is mentioned in problem list.. Musculoskeletal: Negative except for what is mentioned in problem list.. Integumentary: Negative except for what is mentioned in problem list.. Neurologic: Negative except for what is mentioned in problem list.. Health Status Allergies: Allergic Reactions (Selected) NKA, Allergies (1) ActiveSeverityReaction NKANone Documented Current medications: (Selected) Inpatient Medications Ordered Sodium Chloride 0.9% intravenous solution 1,000 mL: 20 mL/hr, Intravenous Prescriptions Prescribed Kandi 24 Hour Allergy oral tablet: 180 mg, 1 tab(s), Oral, Daily, 30 tab(s), 0 Refill(s) Eliquis 5 mg oral tablet: 5 mg, 1 tab(s), Oral, BID, 30 tab(s), 0 Refill(s) Flonase 50 mcg/inh nasal spray: 100 mcg, 2 spray(s), Nostril, each, qAM, 1 EA, 0 Refill(s) amLODIPine 5 mg oral tablet: 5 mg, 1 tab(s), Oral, qDay, 90 tab(s), 1 Refill(s) hydrochlorothiazide-losartan 25-100 mg oral tablet: See Instructions, TAKE 1 TABLET EVERY DAY, 100 tab(s), 1 Refill(s) propranolol 60 mg oral capsule, extended release: 60 mg, 1 cap(s), Oral, BID, 180 cap(s), 1 Refill(s) simvastatin 20 mg oral tablet: 20 mg, 1 tab(s), Oral, qHS, 90 tab(s), 1 Refill(s) Documented Medications Documented Glucosamine Chondroitin: Oral, qDay, 0 Refill(s) ammonium lactate 12% topical cream: 1 guillermo, Topical, BID, 0 Refill(s) calcium (as carbonate) 600 mg oral tablet: 600 mg, 1 tab(s), Oral, BIDM, 0 Refill(s), Medications (1) Active Scheduled: (0) Continuous: (1) NS (0.9% nacl) 1,000 mL 1,000 mL, Intravenous, 20 mL/hr PRN: (0) Problem list: Medical A-fib / SNOMED CT 74909239 / Confirmed CKD (chronic kidney disease) stage 3, GFR 30-59 ml/min / SNOMED CT 1799762284 / Confirmed High cholesterol / SNOMED CT 31384722 / Confirmed Hyperglycemia / SNOMED CT 098325459 / Confirmed HTN (hypertension) / SNOMED CT 1382116001 / Confirmed Post-nasal drainage / SNOMED CT 501380905 / Confirmed Paresthesia of both feet / SNOMED CT 989817295 / Confirmed, Active Problems (7) A-fib CKD (chronic kidney disease) stage 3, GFR 30-59 ml/min High cholesterol HTN (hypertension) Hyperglycemia Paresthesia of both feet Post-nasal drainage Histories Past Medical History: No active or resolved past medical history items have been selected or recorded. Family History: Heart disease Mother Brother Diabetes mellitus type 2 Father CAD - Coronary artery disease Mother Brother Procedure history: Dilation and curettage (44610249). Social History: Social & Psychosocial Habits Alcohol 4Risk Assessment: Low Risk 01/17/2024 Use: Current Frequency: 1-2 times per month Substance Abuse 4Risk Assessment: Denies Substance Abuse 01/17/2024 Use: Never Tobacco 01/17/2024 Tobacco Use: Never (less than 100 in l Exposure to Tobacco Smoke Lives in non-smoking home Home/Environment 01/17/2024 Primary Pastrycook'S Assistant: Self Nutrition/Health 01/17/2024 Caffeine intake amount: coffee, occasionally Physical Examination Vital Signs 01/27/2024 7:06 EDT Temperature Oral 36.7 DegC Apical Heart Rate 86 bpm Respiratory Rate 16 br/min Systolic Blood Pressure Non-Invasive 159 mmHg HI Diastolic Blood Pressure Non-Invasive 86 mmHg Vital Signs (last 24 hrs) Last Charted Temp Oral36.7 DegC (JAN 26 07:06) Heart Rate Twdppj42 bpm (JAN 26 07:06) SBPH 159 mmHg (JAN 26 07:06) DBP86 mmHg (JAN 26 07:06) Measurements from flowsheet : Measurements 01/27/2024 7:06 EDT Height 177.8 cm Height in inches 70 inch(es) Admission Weight 100.8 kg Weight Lbs 221.8 lb Weight Method Actual [place] Body Weight 68.50 kg Admission Body Mass Index 31.89 m2 Pain assessment: Pain Assessment 01/27/2024 7:06 EDT Primary Pain Intensity 0 Primary Pain Nonverbal Response Appears restful Pain Scale Type 0-10 Pain scale , Self-reports no pain. General: Alert and oriented. Airway: Normal temporomandibular joint mobility. Mallampati classification: III (soft palate, base of uvula visible). Head: Normocephalic. Dentition Evaluation: Intact, Own teeth. Neck: Supple. Respiratory: Lungs are clear to auscultation. Cardiovascular: Normal rate. Heart Sounds: Normal. Gastrointestinal: Soft, Non-tender. Musculoskeletal Normal range of motion. Integumentary: Intact. Neurologic: Alert, Oriented. Review / Management Results review: Labs (Last four charted values) WBC 8.2(JAN 26) Hgb 12.2(JAN 26) Hct 36.4(JAN 26) Plt 292(JAN 26) Na 136(JAN 26) K 3.8(JAN 26) CO2 25(JAN 26) Cl 103(JAN 26) Cr 0.94(JAN 26) BUN 18.0(JAN 26) Glucose 105(JAN 26) Ca 10.2(JAN 26) PT H 17.6(JAN 26) INR 1.5(JAN 26) , Lab results 01/27/2024 9:17 EDT SN - PP - Body Position OP Supine 01/27/2024 9:16 EDT SN - GCD - Case Level Flat-Fee 01/27/2024 9:16 EDT SN - Cul - Culture Type No Specimen per Surgeon 01/27/2024 9:16 EDT SN - CAt - Case Attendee SN - CAt - Case Attendee SN - CAt - Case Attendee SN - CAt - Case Attendee SN - CAt - Case Attendee SN - CAt - Case Attendee SN - CAt - Case Attendee SN - CAt - Case Attendee SN - CAt - Role Performed Primary Surgeon SN - CAt - Role Performed AMBULANCE DISPATCHER SN - CAt - Role Performed Procedure Nurse SN - CAt - Role Performed Anesthesiologist 01/27/2024 9:13 EDT Electrocardiogram - EKG - CV Ordered (In Progress) 01/27/2024 9:00 EDT Cardiac Same Day (Pre & Post) Record Cardiac Same Day (Pre & Post) Record 01/27/2024 7:18 EDT Hand Left 01/27/2024 20 gauge Peripheral IV Activity: Insert new site Peripheral IV Dressing Condition: Clean, Dry, Intact Peripheral IV Dressing Activity: Applied, Transparent dressing Peripheral IV Line Status/Patency: Flushes easily, 10ml normal saline flush, Good blood return Peripheral IV Line Care: Secured with tape Peripheral IV Site Condition: No complications Peripheral IV Equipment: PRN Adaptor Peripheral IV Number of Attempts: 1 01/27/2024 7:17 EDT WBC 8.2 10^3/mcL RBC 4.22 10^6/mcL Hgb 12.2 G/dL Hct 36.4 % MCV 86.2 fL MCH 29.0 pg MCHC 33.7 G/dL RDW 13.1 % Platelet 292 10^3/mcL MPV 8.4 fL Neutrophil % 70.8 % Lymphocyte % 15.9 % LOW Monocyte % 8.0 % Eosinophil % 3.9 % Basophil % 1.4 % Neutrophil, Absolute 5.8 10^3/mcL Lymphocyte, Absolute 1.3 10^3/mcL Monocyte, Absolute 0.7 10^3/mcL Eosinophil, Absolute 0.3 10^3/mcL Basophil, Absolute 0.1 10^3/mcL Protime 17.6 seconds HI PT International Ratio 1.5 ratio NA Glucose Level 105 mg/dL Sodium Level 136 mEq/L Potassium Level 3.8 mEq/L Chloride 103 mEq/L CO2 25 mEq/L Electrolyte Balance 8.0 mEq/L BUN 18.0 mg/dL Creatinine Lvl (s) 0.94 mg/dL BUN/Creatinine Ratio 19.1 ratio Calcium Lvl 10.2 mg/dL GFR Non- 58 ml/min/1.73sqm NA GFR >60 ml/min/1.73sqm NA Creatinine Clearance Calc 57.64 mL/min 01/27/2024 7:11 EDT SN - Preop - CTm - Pt in SD Room 01/27/2024 6:39 SN - Preop - CTm - HL Pt Ready for Procedure 01/27/2024 7:10 01/27/2024 7:06 EDT Height 177.8 cm Height in inches 70 inch(es) Admission Weight 100.8 kg Weight Lbs 221.8 lb Weight Method Actual [place] Body Weight 68.50 kg Admission Body Mass Index 31.89 m2 Temperature Oral 36.7 DegC Apical Heart Rate 86 bpm Respiratory Rate 16 br/min Systolic Blood Pressure Non-Invasive 159 mmHg HI Diastolic Blood Pressure Non-Invasive 86 mmHg Primary Pain Intensity 0 Primary Pain Nonverbal Response Appears restful Pain Scale Type 0-10 Pain scale Cardiovascular Symptoms Fatigue Nail Bed Color [place] Capillary Refill < 2 seconds Heart Sounds ICU S1S2 Heart Rhythm Irregular Murmur Auscultated No Dorsalis Pedis Pulse, Left 2+ Normal Dorsalis Pedis Pulse, Right 2+ Normal Respirations Unlabored Respiratory Pattern Regular Breath Sounds Auscultated Anterior and posterior All Lobes Breath Sounds Clear Cough None Oxygen Therapy Room air Oxygen Saturation 95 % Abdomen Description Non-distended, Soft Abdomen Palpation Non-Tender Bowel Sounds All Quadrants Present Urinary Elimination Voiding, no difficulties All Extremity Description [place] Skin Temperature Warm Temperature All Extremities Warm Skin Description [place], Normal for ethnicity, Dry Skin Integrity Intact Skin Moisture General Dry Neurological Symptoms Fatigue Extremity Movement Equal Characteristics of Speech Clear Level of Consciousness Alert Strength All Extremities Strong Tone All Extremities Normal Sensation All Extremities Intact Left Upper Extremity Sensation Intact Right Upper Extremity Sensation Intact Left Lower Extremity Sensation Intact Right Lower Extremity Sensation Intact Affect/Behavior Appropriate, Calm, Cooperative Orientation Oriented x 4 Orientation Assessment Oriented x 4 Assistive Device None Positioning Repositions self Activity Status ADL Up ad xiao Standard Safety ID band on, Call device within reach, Bed in low position, Wheels locked, Upper/Half-Length side-rails up, Phone within reach, personal items within reach, Visitor at bedside, Safety level maintained, Non-Slip footwear, Precautions maintained Demonstrates Correct Call Light Use Yes 01/27/2024 7:05 EDT IV Present Present Allergies No Consent Form Signed Yes Patient Dressed In Hospital gown, No undergarments History & Physical On Chart Yes Obstructive Sleep Apnea Assess Completed Yes Belongings At Bedside Bra, Cell phone, Pants, Rings, Shirt, Shoes, Socks, Undergarments, Wedding band, Pt participated in reconciliation NPO Status Maintained, More than 8 hours Patient ID Band on and Verified Yes Implants Verified Yes Site Verified by Patient/Family Yes Last Fluid Intake 01/26/2024 20:00 Last Food Intake 01/26/2024 20:00 Last Void 01/27/2024 7:06 01/27/2024 7:01 EDT Designated Person #1 We May Share JOCELIN Handy [phone] Designated Person #1 Relationship Spouse Privacy Restrictions Requested None Status N/A Sensory Deficits None Sleep Apnea Snore Yes Sleep Apnea Tired Yes Sleep Apnea Obstruction Yes Sleep Apnea Pressure Yes Sleep Apnea BMI No Sleep Apnea Age Yes Sleep Apnea Neck No Sleep Apnea Gender No Sleep Apnea Score 5 HI Diagnosed With Sleep Apnea No Advanced Directives Yes Advance Directive Type [place] Durable Power of [employer] [place] Declaration (Living Will) Advance Directive Location Patient instructed to bring in copy Infectious Disease Symptoms Fatigue Infectious Disease Recent Exposure No Alcohol and Drug Use No Employee of Institutional Living No Health Care Employee No History of Exposure to TB No History of Positive Chest X-Ray for TB No History of Positive TB Skin Test No Homeless No Known Immunosuppression No Recent Immigrant No Resident of Institutional Living No Bloody Sputum No Fatigue Yes Fever No Loss of Appetite No Night Sweats No Persistent Cough > 3 Weeks No Weight Loss No Barriers to Learning None evident Teaching Method Demonstration, Electronic, Explanation, Printed materials Preferred Spoken Language Brazilian Preferred Written Language Brazilian Teaching Evaluation Verbalizes/Nonverbally indicates understanding Safety Brochure Information Reviewed Yes Yeny Akins Video Viewed Yes Information Given by Patient Patient's Current Physicians Patient's Current Physicians Discharge To, Anticipated Home independently Prev Test Positive/Diagnosis w/COVID-19 No Current Quarantine/Isolated any Illness No Any Contact with Sick Animals/Birds No Traveled Anywhere in Last 30 Days Yes Travel Where Within [facility] State(s) [place] Lost Weight Unintentionally Recently No Eat Poorly Due to Decreased Appetite No Total MST Score 0 N/A Personal Devices, Patient Valuables None Anesthesia/Transfusions Prior anesthesia Admission Note-Nursing Same Day Patient History 01/27/2024 6:32 EDT Electrocardiogram - EKG - CV Completed (In Progress) . Assessment and Plan [employer] Anesthesiologists (ASA) physical status classification: Class III. Anesthetic Preoperative Plan Premedication: intravenous. Anesthetic technique: General. Maintenance airway: Mask. Postoperative pain management: Per surgeon. Risks discussed: nausea, vomiting, sore throat, allergic reaction, serious complications. Informed consent: signed by patient. Digitally Signed by RAMY WU MD on 01/27/2024 09:19 AM [id number] Note ORIGINAL NM MYOCARDIAL SPECT STRESS/REST CLINICAL STATEMENT: SOB, afib TECHNIQUE: Lexiscan dose:0.4 mg Radiopharmaceutical (stress): Tc-99m Sestamibi Dose:30.3 mCi Radiopharmaceutical (rest): Tc-99m Sestamibi Dose:10.4 mCi SPECT acquisition and processing Reconstruction and reorientation of SPECT images into short axis, vertical and horizontal long axisplanes Quantitative LVEF assessment COMPARISON:02/17/21 REPORT:Breast attenuation seen. No significant fixed or reversible defects. Normal TID ratio. Normal wall motion and thickening. LVEF 71%. EDV 67 ml. IMPRESSION: 1. No ischemia or scar. 2. Prominent breast attenuation artifact. 3. Normal LV function with EF > 70% 4. No significant change from prior study in 2020. Interpreted By: Celestina Mayfield MD Preliminary Report By: Celestina Mayfield MD Electronically Signed By: Celestina Mayfield MD Dictated Date: 01/06/2024 12:11:17 PM Prelim Date: 01/06/2024 12:11:17 PM Sign Date: 01/06/2024 12:16:27 PM Ordering Provider:[facility]09-13-2024 Note* Exam Date Time Procedure Performing Provider Status 01/06/24 10:14 AM Echocardiogram, Adult - CV Auth (Verified) [facility] 09-13-2024 Note DATE OF PROCEDURE: 01/06/2024 PROCEDURE: Lexiscan sestamibi myocardial perfusion imaging. FINDINGS: Resting heart rate is 93. Resting blood pressure 161/83. Baseline EKG shows atrial fibrillation. The patient received 0.4 mg of intravenous Lexiscan. No significant ST segment changes notedafter Lexiscan administration. The patient remained in atrial fibrillation. IMPRESSION: 1. No evidence of Lexiscan-induced ischemia per EKG criteria. 2. The patient in atrial fibrillation at baseline. 3. Nuclear perfusion images to be reported separately. NADIYA MAYFIELD MD PG/NTS JOB#: [id number] DICTATION ID#: [id number] Digitally Signed by STEVEN MAYFIELD MD on 01/06/2024 04:25 PM [facility]04-17-2023 Note ORIGINAL EXAMINATION: BONE DENSITOMETRY 08/09/2022 10:32 am TECHNIQUE: A bone density dual x-ray absorptiometry (DEXA) scan was performed of the lumbar spine and left hip. COMPARISON: August 01, 2017. HISTORY: ORDERING SYSTEM PROVIDED HISTORY: Reason for Exam: screening FINDINGS: T Score Left Femoral Neck: 0.1 Left Femoral Neck: 0.865 (g/cm2) T Score Left Hip: 1.5 Left Hip: 1.127 (g/cm2) T Score Lumbar Spine: 3.1 Lumbar Spine: 1.390 (g/cmd2) BMD Change from previous Hip: 4.1% BMD Change from previous Lumbar Spine: 7.4% IMPRESSION: Normal bone mineral density by WHO criteria. *By the World Health Organization criteria: (Comparing with young normal sex matched population) - Normal: T-score at or above -1 SD (standard deviation) - Osteopenia: T-score between -1 and -2.5 SD - Osteoporosis: T-score at or below -2.5 SD Interpreted by: Maral Elmore DO Preliminary Report By: Maral Elmore DO Electronically signed By Maral Elmore DO Dictated Date: 08/09/2022 11:35:13 AM Prelim Date: 08/09/2022 11:36:42 AM Sign Date: 08/09/2022 11:36:42 AM Ordering Provider: SHER TOM [facility]04-17-2023 Note ORIGINAL EXAMINATION: BONE DENSITOMETRY 08/09/2022 10:32 am TECHNIQUE: A bone density dual x-ray absorptiometry (DEXA) scan was performed of the lumbar spine and left hip. COMPARISON: August 01, 2017. HISTORY: ORDERING SYSTEM PROVIDED HISTORY: Reason for Exam: screening FINDINGS: T Score Left Femoral Neck: 0.1 Left Femoral Neck: 0.865 (g/cm2) T Score Left Hip: 1.5 Left Hip: 1.127 (g/cm2) T Score Lumbar Spine: 3.1 Lumbar Spine: 1.390 (g/cmd2) BMD Change from previous Hip: 4.1% BMD Change from previous Lumbar Spine: 7.4% IMPRESSION: Normal bone mineral density by WHO criteria. *By the World Health Organization criteria: (Comparing with young normal sex matched population) - Normal: T-score at or above -1 SD (standard deviation) - Osteopenia: T-score between -1 and -2.5 SD - Osteoporosis: T-score at or below -2.5 SD Interpreted by: Maral Elmore DO Preliminary Report By: Maral Elmore DO Electronically signed By Maral Elmore DO Dictated Date: 08/09/2022 11:35:13 AM Prelim Date: 08/09/2022 11:36:42 AM Sign Date: 08/09/2022 11:36:42 AM Ordering Provider: [facility]09-27-2022 Note HNO ID: [id number] Author: Haylie Wolfe DO Service: ? Author Type: Physician Type: Progress Notes Filed: 01/19/2022 8:19 PM Note Text: Lashanda Freeman is a 71 year old FEMALE who presents with Dog Bite (Right hand 4 days ago 4th and 5th finger ) HPI History reviewed. No pertinent past medical history. There is no problem list on file for this patient. Current Outpatient Medications Medication Sig Dispense Refill amLODIPine (NORVASC) 5 mg tablet losartan-hydroCHLOROthiazide (HYZAAR) 100-25 mg per tablet propranolol ER (INDERAL LA) 60 mg 24 hr capsule simvastatin (ZOCOR) 40 mg tablet amoxicillin-clavulanic acid (AUGMENTIN) 875-125 mg per tablet Take 1 tablet by mouth twice daily for 10 days. 20 tablet 0 No current facility-administered medications for this visit. Alcohol Use: Not on file Tobacco Use: Not on file History reviewed. No pertinent family history. Review of Systems Skin: Multiple punctures and lacerations are noted on the right hand digits #5 and 4 are particularly affected there is a laceration on #5 that is approximately 1-1/2 cm and its at the DIP joint. It has spread apart about 3 to 4 mm. There is some fat pad showing in this is got potential to be a real source for infection. She is got a lot of bruising on that finger and some swelling with some redness. She got some redness on finger #4 as well with multiple smaller lacerations and punctures. She has redness just on the dorsum of the hand just about retirement down from the MP joints. All other systems reviewed and are negative. BP 157/86 Pulse 60 Temp 97.5 Resp 18 Wt 218 lb (98.9kg) SpO2 97% Physical Exam Vitals and nursing note reviewed. Constitutional: Appearance: Normal appearance. Cardiovascular: Rate and Rhythm: Normal rate and regular rhythm. Pulses: Normal pulses. Heart sounds: Normal heart sounds. Pulmonary: Effort: Pulmonary effort is normal. Breath sounds: Normal breath sounds. Musculoskeletal: General: Normal range of motion. Skin: Findings: Bruising and erythema present. Comments: Examination of the right hand pulses are +2/4 capillary refill less than 3 seconds normal motor neurovascular and sensory to the digits. She has significant bruising redness and swelling of her fifth digit with a laceration that is open by about 4 mm and is about 1 and half centimeters long at the palmar aspect of the DIP. Patient has redness and swelling also of the fourth finger but not as bad there are multiple areas of punctures and wounds but nothing quite as bad is on that fifth digit. She has decreased range of motion of the fifth and fourth digit Neurological: Mental Status: She is alert. The wound was properly cleansed and dressed with bacitracin and a Band-Aid and I explained to the patient that this is going to have to heal by secondary intention moisture is her enemy she is to wash it twice daily and then pat it dry thoroughly with a paper towel and apply triple antibiotic ointment and a Band-Aid the patient is to take her medications which will include an antibiotic and that would be Augmentin. She is to watch for any redness swelling drainage discharge increasing pain or fever if any of that happens she is to seek help immediately. The patient was advised that this is a real source for infection and she needs to watch very closely. She is also advised to use Epsom salt soaks 20 minutes twice a day. She was up-to-date on her tetanus and so that was unnecessary. ASSESSMENT/PLAN: 1. Dog bite, initial encounter - ICD9: 879.8, E906.0, ICD10: W54.0XXA - WOUND DRESSING CHANGE - WOUND CULTURE AND GRAM STAIN [facility] of Present illness Narrative * Haylie Jenkinsn, DO - 01/19/2022 8:13 PM EDT Lashanda Freeman is a 71 year old FEMALE who presents with Dog Bite (Right hand 4 days ago 4th and 5th finger ) HPI History reviewed. No pertinent past medical history. There is no problem list on file for this patient. Current Outpatient Medications Medication Sig Dispense Refill amLODIPine (NORVASC) 5 mg tablet losartan-hydroCHLOROthiazide (HYZAAR) 100-25 mg per tablet propranolol ER (INDERAL LA) 60 mg 24 hr capsule simvastatin (ZOCOR) 40 mg tablet amoxicillin-clavulanic acid (AUGMENTIN) 875-125 mg per tablet Take 1 tablet by mouth twice daily for 10 days. 20 tablet 0 No current facility-administered medications for this visit. Alcohol Use: Not on file Tobacco Use: Not on file History reviewed. No pertinent family history. Review of Systems Skin: Multiple punctures and lacerations are noted on the right hand digits #5 and 4 are particularly affected there is a laceration on #5 that is approximately 1- 1/2 cm and its at the DIP joint. It has spread apart about 3 to 4 mm. There is some fat pad showing in this is got potential to be a real source for infection. She is got a lot of bruising on that finger and some swelling with some redness. She got some redness on finger #4 as well with multiple smaller lacerations and punctures. She has redness just on the dorsum of the hand just about retirement down from the MP joints. All other systems reviewed and are negative. BP 157/86 Pulse 60 Temp 97.5 Resp 18 Wt 218 lb (98.9kg) SpO2 97% Physical Exam Vitals and nursing note reviewed. Constitutional: Appearance: Normal appearance. Cardiovascular: Rate and Rhythm: Normal rate and regular rhythm. Pulses: Normal pulses. Heart sounds: Normal heart sounds. Pulmonary: Effort: Pulmonary effort is normal. Breath sounds: Normal breath sounds. Musculoskeletal: General: Normal range of motion. Skin: Findings: Bruising and erythema present. Comments: Examination of the right hand pulses are +2/4 capillary refill less than 3 seconds normalmotor neurovascular and sensory to the digits. She has significant bruising redness and swelling ofher fifth digit with a laceration that is open by about 4 mm and is about 1 and half centimeters long at the palmar aspect of the DIP. Patient has redness and swelling also of the fourth finger but not as bad there are multiple areas of punctures and wounds but nothing quite as bad is on that fifthdigit. She has decreased range of motion of the fifth and fourth digit Neurological: Mental Status: She is alert. The wound was properly cleansed and dressed with bacitracin and a Band-Aid and I explained to the patient that this is going to have to heal by secondary intention moisture is her enemy she is to wash it twice daily and then pat it dry thoroughly with a paper towel and apply triple antibiotic ointment and a Band-Aid the patient is to take her medications which will include an antibiotic and that would be Augmentin. She is to watch for any redness swelling drainage discharge increasing pain or fever if any of that happens she is to seek help immediately. The patient was advised that this is a real source for infection and she needs to watch very closely. She is also advised to use Epsom saltsoaks 20 minutes twice a day. She was up-to-date on her tetanus and so that was unnecessary. ASSESSMENT/PLAN: 1. Dog bite, initial encounter - ICD9: 879.8, E906.0, ICD10: W54.0XXA - WOUND DRESSING CHANGE - WOUND CULTURE AND GRAM STAIN Haylie Wolfe * Katey Joe LPN - 01/19/2022 5:29 PM EDT Dressing applied to right 5th finger per order, tolerated well. Katey Joe LPN [facility] NoteHNO ID: [id number] Author: Katey Joe LPN Service: ? Author Type: LICENSED NURSE Type: Progress Notes Filed: 01/19/2022 8:19 PM Note Text: Dressing applied to right 5th finger per order, tolerated well. [facility] Appointment Date:02/02/2022 09:00:00 AM Scheduled Provider:SHER TOM DO Location:[facility] Appointment Type:[facility] Evaluation + Plan note Future Appointments Appointment Date:08/03/2022 09:00:00 AM Scheduled Provider:SHER TOM DO Location:[facility] Appointment Type:PC OV Appointment Date:08/09/2022 10:30:00 AM Scheduled Provider: Location:[facility] Appointment Type:MA Mammogram Screening Bilateral w/ Ramakrishna Future Scheduled Tests Radiology* MA Mammo Screening Bilateral w/ Ramakrishna 08/09/22 [facility] Evaluation + Plan note Future Appointments Appointment Date:02/01/2023 09:00:00 AM Scheduled Provider:SHER TOM DO Location:[facility] Appointment Type: OV Future Scheduled Tests Laboratory* Thyroid Stimulating Hormone 02/02/23 * A1C Hemoglobin 02/02/23 * Complete Blood Count 02/02/23 * Lipid Profile 02/02/23 * Vitamin D Level 02/02/23 * Complete Metabolic Panel 02/02/23 [facility] Evaluation + Plan note Future Appointments Appointment Date:02/01/2023 09:00:00 AM Scheduled Provider:SHER TOM DO Location:[facility] Appointment Type:[facility] Evaluation + Plan note Future Appointments Appointment Date:08/09/2023 09:00:00 AM Scheduled Provider:SHER TOM DO Location:[facility] Appointment Type: OV [facility] Evaluation + Plan note Future Appointments Appointment Date:02/07/2024 09:00:00 AM Scheduled Provider:SHER TOM DO Location:[facility] Appointment Type:[facility] Medicare Future Scheduled Tests Laboratory* Thyroid Stimulating Hormone 02/08/24 * A1C Hemoglobin 02/08/24 * Complete Blood Count 02/08/24 * Lipid Profile 02/08/24 * Complete Metabolic Panel 02/08/24 [facility] Evaluation + Plan note Future Appointments Appointment Date:01/06/2024 08:30:00 AM Scheduled Provider: Location:[facility] Appointment Type:NM Myocardial Spect Rest/Stress Anahi Appointment Date:01/06/2024 11:00:00 AM Scheduled Provider: Location:[facility] Appointment Type:Echo - Echocardiogram Adult Appointment Date:01/10/2024 01:00:00 PM Scheduled Provider: Location:[facility] Appointment Type:PF PFT w/Bronchodiltor Appointment Date:01/12/2024 10:00:00 AM Scheduled Provider:SHER TOM DO Location:[facility] Appointment Type:PC Wellness Medicare Appointment Date:01/17/2024 10:00:00 AM Scheduled Provider:SOPHIA AVILA Location:[facility] Appointment Type:CV OV Future Scheduled Tests Radiology* NM Myocardial Spect Rest/Stress 01/06/24 [facility] Evaluation + Plan note Future Appointments Appointment Date:02/06/2024 01:00:00 PM Scheduled Provider:SOPHIA AVILA Location:[facility] Appointment Type:CV OV Appointment Date:08/09/2024 09:00:00 AM Scheduled Provider:SHER TOM DO Location:[facility] Appointment Type:PC OV Future Scheduled Tests Laboratory* Thyroid Stimulating Hormone 07/11/24 * A1C Hemoglobin 07/11/24 * Complete Blood Count 07/11/24 * Lipid Profile 07/11/24 * Vitamin D Level 07/11/24 * Complete Metabolic Panel 07/11/24 [facility] Evaluation + Plan note Future Appointments Appointment Date:01/10/2024 01:00:00 PM Scheduled Provider: Location:[facility] Appointment Type:PF PFT w/Bronchod[place]or Appointment Date:01/12/2024 10:00:00 AM Scheduled Provider:SHER TOM DO Location:[facility] Appointment Type:PC Wellness Medicare Appointment Date:01/17/2024 10:00:00 AM Scheduled Provider:SOPHIA AVILA Location:[facility] Appointment Type:CV OV [facility] Evaluation + Plan note Future Appointments Appointment Date:01/12/2024 10:00:00 AM Scheduled Provider:SHER TOM DO Location:[facility] Appointment Type:PC Wellness Medicare Appointment Date:01/17/2024 10:00:00 AM Scheduled Provider:SOPHIA AVILA Location:[facility] Appointment Type:CV OV [facility] Evaluation + Plan note Future Appointments Appointment Date:01/17/2025 09:00:00 AM Scheduled Provider:SHER TOM DO Location:[facility] Appointment Type: Wellness Medicare Appointment Date:01/24/2025 09:00:00 AM Scheduled Provider:SOPHIA AVILA Location:[facility] Appointment Type:CV OV Future Scheduled Tests Laboratory* Thyroid Stimulating Hormone 02/08/25 * A1C Hemoglobin 02/08/25 * Complete Blood Count 02/08/25 * Lipid Profile 02/08/25 * Vitamin D Level 02/08/25 * Complete Metabolic Panel 02/08/25 [facility] Evaluation + Plan note Future Appointments Appointment Date:01/17/2025 09:00:00 AM Scheduled Provider:SHER TOM DO Location:[facility] Appointment Type: Wellness Medicare Appointment Date:01/24/2025 09:00:00 AM Scheduled Provider:SOPHIA AVILA Location:[facility] Appointment Type:CV OV [facility] Evaluation + Plan note Future Appointments Appointment Date:01/24/2025 09:00:00 AM Scheduled Provider:SOPHIA AVILA Location:[facility] Appointment Type:CV OV Appointment Date:08/08/2025 09:00:00 AM Scheduled Provider:SHER TOM DO Location:[facility] Appointment Type:PC OV Diagnostic Tests Pending * Protein Electrophoresis Panel 01/17/25 Future Scheduled Tests Laboratory* Thyroid Stimulating Hormone 07/17/25 * Complete Blood Count 07/17/25 * Lipid Profile 07/17/25 * Vitamin D Level 07/17/25 * Complete Metabolic Panel 07/17/25 [facility] Evaluation note* Diagnosis Dog bite, initial encounter- Primary documented [facility] noteNo assessment information availablePar[facility] Work Phone: Evaluation note* Diagnosis Onset Date Resolution Status Admit Date Restrictive airway disease acute October 23, 2024 9:58am [facility] Work Phone: Hospital course Narrative No data available for this section [facility] Hospital Discharge instructions No data available for this section [facility] Progress note No data available for this section [facility] Reason for referral (narrative)No reason for referral information availableProv[facility] Work Phone: Summary Purpose Family History Relationship Condition Age at Onset Recorded Date/T laura father Diabetes mellitus Unknown mother Cardiac disease Unknown Family Member Condition Full Brother Diabetes - insulin d ependent Father Heart disease Father Diabetes - insulin d ependent Father Mother Heart disease Mother Family Member Condition Full Brother Diabetes - insulin d ependent Father Heart disease Father Diabetes - insulin d ependent Father Mother Heart disease Mother Advance Directives No Advanced Directives Records FoundNo Advanced Directives Records FoundNo Advanced Directives Records Found No Information Available No Advanced Directives Records FoundNo Advanced Directives Records Found No Information Available Chief Complaint and Reason for Visit Chief Complaint R22.1 Chief Complaint Admit Date est care October 23, 2024 9:58a m Reason for Visit Admit Date Restrictive airway disease October 23 9:58am Chief Complaint Admit Date est care October 23, 2024 9:58a m J98.4 - Other disorders of lung October 12:32pm J98.4 - Other disorders of lung October 11:38am J98.4 - Other disorders of lung October 9:35am Chief Complaint Admit Date est care October 23, 2024 9:58a m J98.4 - Other disorders of lung October 12:32pm J98.4 - Other disorders of lung October 11:38am J98.4 - Other disorders of lung October 9:35am 6 wk FU November 27, 2024 10: 36am Reason for Visit Admit Date Restrictive airway disease October 23 9:58am Restrictive airway disease November 27 025 10:36am Chief Complaint Admit Date est care October 23, 2024 9:58a m J98.4 - Other disorders of lung October 12:32pm J98.4 - Other disorders of lung October 11:38am J98.4 - Other disorders of lung October 9:35am 6 wk FU November 27, 2024 10: 36am Shortness of breath December 18, 2024 11 :19am Reason for Visit Admit Date Restrictive airway disease October 23 9:58am Restrictive airway disease November 27 025 10:36am Shortness of breath November 27, 2024 10: 36am Chief Complaint Admit Date est care October 23, 2024 9:58a m J98.4 - Other disorders of lung October 12:32pm J98.4 - Other disorders of lung October 11:38am J98.4 - Other disorders of lung October 9:35am 6 wk FU November 27, 2024 10: 36am Shortness of breath December 18, 2024 11 :19am 6 wk FU January 08, 2025 1:30pm Reason for Visit Admit Date Restrictive airway disease October 23 9:58am Restrictive airway disease November 27 025 10:36am Shortness of breath November 27, 2024 10: 36am Restrictive airway disease December 1:30pm Shortness of breath January 08, 2025 1:30pm Additional Source Comments Care Team (unrecognized sect ion and content) Team Status: Active Member Role Status Dates Scotty Eshenaur Family Provider Active Dr. Sher Tom , DO Primary Care Provider Activ e Team Status: Inactive Member Role Status Dates Dr. Martin Hooper MD Attending Provider, Refe rring Provider Active Dr. Sher Tom , DO Primary Care Provider Activ e Team Status: Active Member Role/Relationship Status Dates Scotty Eshenaur Family Provider Active Dr. Sher Tom DO Primary Care Provider Activ e Team Status: Inactive Member Role/Relationship Status Dates Dr. Sher Tom , DO Primary Care Provider Activ e Start: October 23, 2024 End: October 23, 2024 Dr. Sher Tom , DO Referring Provider Active Start: October 23, 2024 End: October 23, 2024 Dr. Andreas Sahu , Attending Provider Active S tart: October 23, 2024 End: October 23, 2024 Team Status: Active Member Role/Relationship Status Dates Dr. Sher Tom , DO Primary Care Provider Activ e Team Status: Inactive Member Role/Relationship Status Dates Dr. Sher Tom , DO Primary Care Provider Activ e Start: November 01, 2024 End: November 01, 2024 Dr. Andreas Sahu , Attending Provider Active S tart: November 01, 2024 End: November 01, 2024 Dr. Andreas Sahu , Referring Provider Active S tart: November 01, 2024 End: November 01, 2024 Team Status: Active Member Role/Relationship Status Dates Dr. Sher Tom DO Primary Care Provider Activ e Start: November 02, 2024 Dr. Andreas Sahu , Attending Provider Active S tart: November 02, 2024 Dr. Andreas Sahu , Referring Provider Active S tart: November 02, 2024 Dr. Andreas Sahu , DO Other Provider Active Start : November 02, 2024 Team Status: Active Member Role/Relationship Status Dates Dr. Sher Tom , DO Primary Care Provider Activ e Start: November 06, 2024 Dr. Andreas Sahu , Attending Provider Active S tart: November 06, 2024 Dr. Andreas Sahu , Referring Provider Active S tart: November 06, 2024 Team Status: Inactive Member Role/Relationship Status Dates Dr. Sher Tom DO Primary Care Provider Activ e Start: November 06, 2024 End: November 06, 2024 Dr. Andreas Sahu , DO Attending Provider Active S tart: November 06, 2024 End: November 06, 2024 Dr. Andreas Sahu , DO Referring Provider Active S tart: November 06, 2024 End: November 06, 2024 Team Status: Inactive Member Role/Relationship Status Dates Dr. Sher Tom DO Primary Care Provider Activ e Start: November 27, 2024 End: November 27, 2024 Dr. Sher Tom DO Referring Provider Active Start: November 27, 2024 End: November 27, 2024 JUNG Kaur Attending Provider Active Start: November 27, 2024 End: November 27, 2024 Team Status: Inactive Member Role/Relationship Status Dates Dr. Sher Tom DO Primary Care Provider Activ e Start: December 18, 2024 End: December 18, 2024 JUNG Kaur Attending Provider Active Start: December 18, 2024 End: December 18, 2024 JUNG Kaur Referring Provider Active Start: December 18, 2024 End: December 18, 2024 Team Status: Inactive Member Role/Relationship Status Dates Dr. Sher Tom DO Primary Care Provider Activ e Start: January 08, 2025 End: January 08, 2025 Dr. Sher Tom DO Referring Provider Active Start: January 08, 2025 End: January 08, 2025 JUNG Kaur Attending Provider Active Start: January 08, 2025 End: January 08, 2025 Source Comments (unrecognize d section and content) In the event this informatio n is protected by the Federal Confidentiality of Alcohol and Drug Abuse Patient Records regulations: The Federal rules restrict any use of the information to criminally investigate or prosecute any alcohol or drug abuse patient.[facility] the event this information is protected by the Federal Confidentiality of Alcohol and Drug Abuse Patient Records regulations: The Federal rules restrict any use of the information to criminally investigate or prosecute any alcohol or drug abuse patient.[facility] Reason for Visit (unrecogniz ed section and content) post debridement joint and e xcision ganglion cyst right index finger on 01/07/2025, Postop - 1st visit Reason Comments Dog Bite Right hand 4 days ag o 4th and 5th finger INFORMATION SOURCE (unrecogn ized section and content) DATE CREATED AUTHOR 01/25/2022 [facility] DATE CREATED AUTHOR AUTHOR'S ORGANIZ ATION 12/23/2023 [facility] ([place]) DATE CREATED AUTHOR AUTHOR'S ORGANIZ ATION 02/01/2024 [facility] DATE CREATED AUTHOR AUTHOR'S ORGANIZ ATION 01/17/2025 [facility] DATE CREATED AUTHOR AUTHOR'S ORGANIZ ATION 01/18/2025 [facility] Goals (unrecognized section and content) Goals may be documented in a n alternate section FOR RECORDS PERTAINING TO PATIENTS WHO ARE OR HAVE BEEN ENROLLED IN A CHEMICAL DEPENDENCY/SUBSTANCEABUSE PROGRAM, SOME INFORMATION MAY BE OMITTED. This clinical summary was aggregated from multiple sources. Caution should be exercised in using it in the provision of clinical care. This summary normalizes information from multiple sources, and as a consequence, information in this document may materially change the coding, format and clinical context of patient data. In addition, data may be omitted in some cases. CLINICAL DECISIONS SHOULD BE BASED ON THE PRIMARY CLINICAL RECORDS. [employer] provides no warranty or guarantee of the accuracy or completeness of information in this document.
== END | disposition home or self-care (01) ==
LOC: SL 19:49
PROVIDERS: Referring Provider Nurse Practitioner Family; Visit Provider Nurse Practitioner Family
DX: G47.10 Hypersomnia, unspecified (principal)
CPT/HCPCS: 95810